=== PATIENT | female | born 1970 | race Caucasian/White ===

== ENCOUNTER 2017-05-21 11:22 | Emergency (ER) | payer MEDICAID ==
[2017-05-21 11:58] VITALS: BP 106/84
[2017-05-21] MEDS ORDERED: HYDROcodone/ACETAMIN 5-325 MG* 1 TAB PO ONE (12:58)
--- NOTE | 2017-05-21 12:58 | UC ---
Back Pain HPI - HPI Summary HPI Summary: Slipped on stairs this morning--has pain in right side hip and pelvis,--chronic pain in right hip from a 3 year old injry . - History of Current Complaint Chief Complaint: UCTrauma Stated Complaint: HIP/BACK PAIN Time Seen by Provider: 05/21/17 12:46 Hx Obtained From: Patient ?: No Onset/Duration: Worse Since - slipping on steps this morning Timing: Constant Severity Initially: Severe Severity Currently: Severe Pain Intensity: 10 Pain Scale Used: 0-10 Numeric Back Pain: Is Discrete @ - right groin in loer back Character: Sharp, Aching, Spasmodic Aggravating Factor(s): Movement Alleviating Factor(s): Nothing Associated Signs And Symptoms: Positive: Pain with Weight Bearing Related History: Previous Back Injury - Allergies/Home Medications Allergies/Adverse Reactions: Allergies Allergy/AdvReac Type Severity Reaction Status Date / Time No Known Allergies Allergy Verified 05/21/17 11:58 Home Medications: Home Medications Cyclobenzaprine TAB* [Flexeril 10 MG TAB*] 1 tab PO DAILY 05/21/17 [History Confirmed 05/21/17] metFORMIN* [Glucophage 500 MG TAB *] 1 tab PO DAILY 05/21/17 [History Confirmed 05/21/17] PMH/Surg Hx/FS Hx/Imm Hx Previously Healthy: Yes Endocrine History: Diabetes - Surgical History Surgical History: Yes Surgery Procedure, Year, and Place: Right hip fracture - Family History Known Family History: Positive: None - Social History Occupation: Unemployed Lives: With Family Alcohol Use: Occasionally Substance Use Type: None Smoking Status (MU): Light Every Day Tobacco Smoker Have You Smoked in the Last Year: No Cessation Counseling: Counseled 3+Min - 10 Min Review of Systems Constitutional: Negative Skin: Negative Eyes: Negative ENT: Negative Respiratory: Negative Cardiovascular: Negative Gastrointestinal: Negative Genitourinary: Negative Motor: Negative Neurovascular: Negative Musculoskeletal: Negative, Arthralgia - right hip and lower back Neurological: Negative Psychological: Negative Is Patient Immunocompromised?: No All Other Systems Reviewed And Are Negative: Yes Physical Exam Triage Information Reviewed: Yes Appearance: Well-Appearing, Well-Nourished, Pain Distress Vital Signs: Initial Vital Signs Temp 97.1 F 05/21/17 11:54 Pulse 133 05/21/17 11:54 Resp 18 05/21/17 11:54 BP 106/84 05/21/17 11:54 Pulse Ox 100 05/21/17 11:54 Vital Signs Reviewed: Yes Eye Exam: Normal Eyes: Positive: Conjunctiva Clear ENT Exam: Normal ENT: Positive: Normal ENT inspection, Hearing grossly normal. Negative: Nasal congestion, Trismus, Muffled voice, Hoarse voice, Dental tenderness, Sinus tenderness Dental Exam: Normal Neck exam: Normal Neck: Positive: Supple, Nontender, No Lymphadenopathy Respiratory Exam: Normal Respiratory: Positive: Chest non-tender, Lungs clear, Normal breath sounds, No respiratory distress, No accessory muscle use Cardiovascular Exam: Normal Cardiovascular: Positive: RRR, Pulses Normal, Brisk Capillary Refill, Tachycardia Abdominal Exam: Normal Musculoskeletal Exam: Normal Musculoskeletal: Positive: No Edema, Strength Limited @ - right hip/leg, ROM Limited @ - right hip---pain Neurological Exam: Normal Neurological: Positive: Alert, Muscle Tone Normal Psychological Exam: Normal Skin Exam: Normal Diagnostics - Radiology No standard instances Xray Interpretation: Positive (See Comments) - CAlcified uterine fibroid, degenerative changes hip and lower back Radiology Interpretation Completed By: Radiologist Back Pain Course/Dx - Course Course Of Treatment: pain med, referal to MD and physical theray, water quality tester for evaluation of thyroid - Differential Dx/Diagnosis Provider Diagnoses: Right hip strain, nicotine dependent, calcified uterine fibroid Discharge - Discharge Plan Condition: Stable Disposition: HOME Prescriptions: Hydrocodone-Acetaminophen [Hydrocodone/Acetaminophen 5-325 mg] 1 tab PO Q6H PRN #15 tab MDD 4 PRN Reason: pain Meloxicam(NF) [Mobic(NF)] 7.5 mg PO BID PRN #30 tab PRN Reason: Pain Patient Education Materials: Hip Sprain (ED), Uterine Fibroids (ED), How to Stop Smoking (ED) Referrals: No Primary Care Phys,NOPCP [Primary Care Provider] - [facility] [Outside]
--- NOTE | 2017-05-21 13:30 | RAD ---
INDICATION: Severe right hip pain after a fall COMPARISON: None TECHNIQUE: 4 views of the right hip were obtained. FINDINGS: There are at least 2 plate and screw fixator spanning the right iliac bone. There are advanced degenerative changes of the right hip including obliteration of the joint space and sclerotic change of the articulating services. The visualized bones are otherwise intact and appropriately aligned. The iliopectineal and ilioischial lines are intact. Incidentally noted in the left hemipelvis is a mostly calcified 5.2 cm mass possibly a calcified uterine fibroid. IMPRESSION: Normal radiograph of the right hip. If the patient's symptoms persist follow-up imaging is recommended.
== END 2017-05-21 14:20 | disposition home or self-care (01) ==
LOC: UCEAST 11:22
DX: S73.101A Unspecified sprain of right hip, initial encounter (principal); W01.0XXA Fall on same level from slipping, tripping and stumbling without subsequent striking against object, initial encounter; Y93.9 Activity, unspecified; Y92.9 Unspecified place or not applicable; Y99.9 Unspecified external cause status; F17.210 Nicotine dependence, cigarettes, uncomplicated; D25.9 Leiomyoma of uterus, unspecified; Z79.84 Long term (current) use of oral hypoglycemic drugs; E11.9 Type 2 diabetes mellitus without complications
CPT/HCPCS: 99202; G0463

== ENCOUNTER 2017-10-22 10:34 | Emergency (ER) | payer OTHER ==
--- NOTE | 2017-10-22 11:25 | UC ---
Ear Complaint HPI - HPI Summary HPI Summary: PATIENT COMPLAINS OF 2 WEEKS OF RINGING IN HER LEFT EAR. FOR ABOUT A WEEK SHE HAS HAD HEARING LOSS IN THE LEFT EAR. DENIES ANY DRAINAGE OR DISCHARGE FROM THAT EAR. SHE ALSO HAS PAIN THAT IS KEEPING HER UP AT NIGHT. HAS HAD ABOUT A WEEK OF URI SYMPTOMS INCLUDING COUGH AND CONGESTION BUT NO FEVER. - History of Current Complaint Chief Complaint: UCEar Stated Complaint: RINGING IN EAR Time Seen by Provider: 10/22/17 10:59 Hx Obtained From: Patient Onset/Duration: Gradual Onset, Lasting Weeks, Still Present Severity Initially: Moderate Severity Currently: Moderate Pain Intensity: 7 Pain Scale Used: 0-10 Numeric Aggravating Factors: Nothing Alleviating Factors: Nothing Associated Signs/Symptoms: Positive: Hearing Loss, URI Symptoms - Allergies/Home Medications Allergies/Adverse Reactions: Allergies Allergy/AdvReac Type Severity Reaction Status Date / Time No Known Allergies Allergy Verified 10/22/17 10:47 PMH/Surg Hx/FS Hx/Imm Hx Endocrine History: Diabetes - TYPE II - Surgical History Surgical History: Yes Surgery Procedure, Year, and Place: Right hip fracture; Right Hip Surgery by Dr. Ivory at [facility] - Family History Known Family History: Positive: None Negative: Hypertension - Social History Alcohol Use: Occasionally Alcohol Amount: 2 drinks per week Substance Use Type: None Smoking Status (MU): Heavy Every Day Tobacco Smoker Type: Cigarettes Amount Used/How Often: 1 PPD Have You Smoked in the Last Year: No Household Exposure Type: Cigarettes Review of Systems Constitutional: Negative ENT: Ear Ache Respiratory: Cough Cardiovascular: Negative Gastrointestinal: Negative All Other Systems Reviewed And Are Negative: Yes Physical Exam Triage Information Reviewed: Yes Appearance: Well-Appearing, No Pain Distress, Well-Nourished Vital Signs: Initial Vital Signs Temp 97.2 F 10/22/17 10:45 Pulse 78 10/22/17 10:45 Resp 18 10/22/17 10:45 BP 160/115 10/22/17 10:45 Pulse Ox 98 10/22/17 10:45 Vital Signs Reviewed: Yes Eyes: Positive: Conjunctiva Clear ENT: Positive: Hearing grossly normal, Pharynx normal, Other - RIGHT TM NORMAL. LEFT TM DULL, RETRACTED, ERYTHEMATOUS Neck: Positive: Supple, Nontender, No Lymphadenopathy Respiratory Exam: Normal Cardiovascular Exam: Normal Abdomen Description: Positive: Soft Musculoskeletal: Positive: No Edema Neurological: Positive: Alert Psychological: Positive: Age Appropriate Behavior Skin: Negative: rashes Ear Complaint Course/Dx - Differential Dx/Diagnosis Provider Diagnoses: LEFT AOM Discharge - Sign-Out/Discharge Documenting (check all that apply): Discharge/Admit/Transfer - Discharge Plan Condition: Stable Disposition: HOME Prescriptions: Amoxicillin PO (*) [Amoxicillin 500 MG CAP*] 1,000 mg PO Q12H #40 cap Patient Education Materials: Ear Infection (ED) Referrals: Senthil Trevino MD [Primary Care Provider] - If Needed Additional Instructions: YOUR BLOOD PRESSURE WAS ELEVATED TODAY (160/115). THIS MAY BE DUE TO YOUR ACUTE CONDITION. MONITOR AND FOLLOW-UP WITH YOUR PCP WITHIN 4 WEEKS IF IT HAS NOT RETURNED TO NORMAL. - Billing Disposition and Condition Condition: STABLE Disposition: HOME
[2017-10-22 11:37] VITALS: BP 140/101
== END 2017-10-22 11:34 | disposition home or self-care (01) ==
LOC: UCEAST 10:34
DX: H66.92 Otitis media, unspecified, left ear (principal); E11.9 Type 2 diabetes mellitus without complications; Z79.84 Long term (current) use of oral hypoglycemic drugs; F17.210 Nicotine dependence, cigarettes, uncomplicated
CPT/HCPCS: 99212; G0463

== ENCOUNTER 2018-12-14 16:30 | Emergency (ER) | payer OTHER ==
--- OUTSIDE RECORDS SUMMARY | 2018-12-14 16:46 | XMS REPORT | Continuity of Care Document ---
:1970 External Reference #:[id number] Author Name Samy Tierney Care Team Providers Name Role Phone Fatuma Bui M.D. Primary Care Physician Unavailable Payers Date Identification Numbers Payment Provider Subscriber Expires: 2017 Policy Number: [id number] Medicaid Maurice Nowak Group Name: 1 1 [address] PayID: [id number] [place] [address] Policy Number: [id number] [place] Maurice Nowak Group Number: [id number] [address] PayID: [id number] [place] [address] Problems Active Problems Provider Date Type 2 diabetes mellitus Benjamin Garcia M.D.,FACP Onset: 12/01/2017 Diabetic neuropathy Benjamin Garcia M.D.,FACP Onset: 12/01/2017 Chronic pain syndrome Benjamin Garcia M.D.,FACP Onset: 12/01/2017 Lumbar disc prolapse with Benjamin Garcia M.D.,FACP Onset: 12/01/2017 radiculopathy Cholelithiasis without obstruction Benjamin Garcia M.D.,FACP Onset: 2017 Major depressive disorder Benjamin Garcia M.D.,FACP Onset: 12/01/2017 Compression fracture of L2 Benjamin Garcia M.D.,FACP Onset: 04/29/2018 Note: on MRI, traumatic Moderate cigarette smoker (10-19 Benjamin Garcia M.D.,FACP Onset: 2017 cigs/day) Family History Date Family Member(s) Observation Comments General father at 91 yr r/t CVA. : (age 91 Father due to Stroke Years) Mother mother at 47 yo of lung cancer Mother due to Lung Cancer () Siblings 6 all alive and well Social History Type Date Description Comments Sex Unknown Marital Status Lives With Alone Occupation Unemployed Tobacco Use Start: Unknown current cigarette rolls her own, smoker about 15 a day Smoking Status Reviewed: 12/07/18 current cigarette rolls her own, smoker about 15 a day ETOH Use 04/29/2018 Occasionally consumes alcohol Tobacco Use Start: Unknown Heavy tobacco smoker 1 ppd; began age 11 (more than 10 cigarettes/day) Recreational Drug Use Denies Drug Use Exercise Type/Frequency Does not exercise Allergies, Adverse Reactions, Alerts Description No Known Drug Allergies Medications Active Medications SIG Qnty Indications Ordering Date Provider Buprenorphine HCL 1 sl every 8 hours 90tabs Fatuma Bui, 12/07/2018 8mg as needed for pain Tablets Sub Cyanocobalamin one intramuscular 30ml D51.9 Fatuma Bui, 10/13/2018 weekly x 4 1000mcg/ML Solution Trazodone HCL 1/2-1 tablet at 30tabs Senthil Peterson 07/29/2018 50mg bedtime as needed Sarina Trevino Tablets Atorvastatin Calcium take 1 tablet by 90tabs Benjamin Mayo 04/29/2018 mouth at bedtime Radha, 10mg Tablets Sarina,NIKKIE Tizanidine HCL 1 three times a day 30tabs Fatuma Bui, 03/31/2018 4mg as needed MD Tablets Duloxetine HCL Take 1 Capsule By 30caps F33.1 Fatuma Bui, 03/18/2018 60mg Mouth Every Morning MD Reinaldo Brandon 1 by mouth every day 90tabs Fatuma Bui, 03/18/2018 5mg Tablets Metformin HCL ER Take 2 Tablets By 120tabs Fatuma Bui, 500mg Mouth Every Morning Tablets ER 24HR And Take 2 Tablets By Mouth Every Evening Gabapentin take 2 capsules by 180caps Fatuma Bui, 400mg mouth 3 times a day Capsules History Medications Fentanyl apply one patch 10units M51.16 Fatuma Bui MD 08/17/2018 - 25mcg/HR once every 3 12/07/2018 Patches 72HR days S32.020D Fentanyl topical q3d with 10units Fatuma Bui MD 08/17/2018 - 12mcg/HR 25 mcg patch 12/07/2018 Patches 72HR Fentanyl topical q3days 5units M51Shoaib Bui MD 07/29/2018 - 08/17/2018 37.5mcg/HR Patches 72HR S32.020D Fentanyl apply 1 patch 5units [id number] Leila Nation MD 05/03/2018 - 25mcg/HR once every 3 07/29/2018 Patches 72HR days S32.020D Fentanyl one topical 10units M51.16 Benjamin Garcia, 04/29/2018 - every 3rd day Sarina,[facility] 05/03/2018 50mcg/HR Patches 72HR S32.020D Oxycodone HCL 1 by mouth every 150tabs Fatuma Bui MD 03/18/2018 - 10mg 4 hours as 12/07/2018 Tablets needed pain Duloxetine HCL Take one tablet 30caps F33.1 Benjamin Mayo 02/07/2018 - 60mg daily. Sarina Garcia,[facility] 02/07/[address] Buenrostro Venlafaxine HCL Take one tablet 30tabs F33.1 Benjamin Mayo 02/07/2018 - 75mg daily. Sarina Garcia,[facility] 03/18/2018 Tablets Oxycodone-Acetaminop 1 by mouth every 75tabs Benjamin Mayo 12/01/2017 - hen 4 hours as Sarina Garcia,[facility] 03/18/2018 7.5-325mg Tablets needed Duloxetine HCL take 1 capsule 30caps F33.1 Benjamin Mayo 12/01/2017 - 30mg by mouth every Sarina Garcia,[facility] 02/07/[address] Chitra Mtz 12 Hour 2 squirts to 60ml H69.92 Senthil Peterson 10/14/2017 - 0.05% each nostril Sarina Trevino 05/28/2018 Solution twice a day for no more than 5 days Oxycodone HCL five times a day Unknown - 10mg prn 12/01/2017 Tablets Iron 1 by mouth daily Unknown - Tablets with a small 02/15/2018 glass of orange juice Calcium 600 1 by mouth every Unknown - Tablets day 02/15/2018 Medications Administered in Office Medication SIG Qnty Indications Ordering Provider Date Vitamin B12 Pt Provided Vac Nurse Visit A 12/09/2018 Injection Vitamin B12 Pt Provided Vac Nurse Visit A 12/02/2018 Injection B-12 Injection Nurse Visit A 11/25/2018 Injection B-12 Injection Fatuma Bui MD 10/13/2018 Injection Vital Signs Date Vital Result Comment 12/07/2018 2:33pm Height 62.5 inches 5'2.50" Weight 139.00 lb Heart Rate 124 /min BP Systolic 130 mmHg BP Diastolic 90 mmHg Body Temperature 98.0 F O2 % BldC Oximetry 97 % BMI (Body Mass Index) 25.0 kg/m2 10/13/2018 2:07pm Height 62.5 inches 5'2.50" Weight 145.00 lb Heart Rate 110 /min BP Systolic Sitting 106 mmHg BP Diastolic Sitting 75 mmHg BMI (Body Mass Index) 26.1 kg/m2 09/21/2018 9:56am Height 62.5 inches 5'2.50" Weight 150.00 lb Heart Rate 105 /min BP Systolic Sitting 124 mmHg BP Diastolic Sitting 100 mmHg Respiratory Rate 18 /min Pain Level 7 BMI (Body Mass Index) 27.0 kg/m2 07/29/2018 11:18am Height 62.5 inches 5'2.50" Weight 143.38 lb with boots Heart Rate 76 /min BP Systolic 122 mmHg BP Diastolic 80 mmHg O2 % BldC Oximetry 96 % BMI (Body Mass Index) 25.8 kg/m2 06/27/2018 9:03am Height 62.5 inches 5'2.50" Weight 144.50 lb Heart Rate 120 /min rt radial, regular BP Systolic Sitting 145 mmHg BP Diastolic Sitting 100 mmHg BMI (Body Mass Index) 26.0 kg/m2 04/29/2018 2:11pm Height 62.5 inches 5'2.50" Weight 151.00 lb Heart Rate 85 /min BP Systolic 116 mmHg BP Diastolic 84 mmHg O2 % BldC Oximetry 97 % BMI (Body Mass Index) 27.2 kg/m2 03/18/2018 2:22pm Height 62.5 inches 5'2.50" Weight 151.00 lb Heart Rate 94 /min BP Systolic Sitting 124 mmHg BP Diastolic Sitting 70 mmHg Respiratory Rate 16 /min Body Temperature 97.2 F tympanic Pain Level 10 back O2 % BldC Oximetry 98 % on Ra BMI (Body Mass Index) 27.2 kg/m2 02/07/2018 8:53am Height 62.5 inches 5'2.50" Weight 154.00 lb Heart Rate 104 /min BP Systolic 130 mmHg in quite a bit of pain BP Diastolic 90 mmHg in quite a bit of pain O2 % BldC Oximetry 99 % BMI (Body Mass Index) 27.7 kg/m2 12/01/2017 3:55pm Weight 145.00 lb Heart Rate 140 /min BP Systolic Sitting 112 mmHg BP Diastolic Sitting 70 mmHg Body Temperature 97.6 F O2 % BldC Oximetry 95 % 10/14/2017 9:57am Weight 157.00 lb Heart Rate 114 /min BP Systolic Sitting 110 mmHg BP Diastolic Sitting 78 mmHg O2 % BldC Oximetry 97 % 09/30/2017 3:15pm Height 62.5 inches 5'2.50" Weight 148.00 lb Heart Rate 102 /min 125 initially BP Systolic Sitting 128 mmHg 140/96 initially BP Diastolic Sitting 88 mmHg 140/96 initially O2 % BldC Oximetry 97 % BMI (Body Mass Index) 26.6 kg/m2 Results Test Date Facility Test Result H/L Range Note CBC Auto Diff 12/07/2018 [facility] White Blood 7.2 10^3/uL N 3.5-10.[address] [place] [address] [phone] Red Blood Count 4.37 10^6/uL N 3.70-4.87 Hemoglobin 13.9 g/dL N 12.0-16.0 Hematocrit 43 % N 35-47 Mean Corpuscular Volume 98 fL High 80-97 Mean Corpuscular Hemoglobin 32 pg High 27-31 Mean Corpuscular HGB Conc 33 g/dL N 31-36 Red Cell Distribution Width 16 % High 10-15 Platelet Count 303 10^3/uL N 150-450 Mean Platelet Volume 8.6 fL N 7.4-10.4 Abs Neutrophils 4.2 10^3/uL N 1.5-7.7 Abs Lymphocytes 2.4 10^3/uL N 1.0-4.8 Abs Monocytes 0.5 10^3/uL N 0-0.8 Abs Eosinophils 0.0 10^3/uL N 0-0.6 Abs Basophils 0.1 10^3/uL N 0-0.2 Abs Nucleated RBC 0.0 10^3/uL Granulocyte % 58.0 % Lymphocyte % 33.7 % Monocyte % 6.7 % Eosinophil % 0.3 % Basophil % 1.3 % Nucleated Red Blood Cells % 0.0 Laboratory test 12/07/2018 [facility] TSH (Thyroid 0.54 mcIU/mL N 0.34-5.[address] Stim [place]orm) [place] [address] [phone] Basic Metabolic 12/07/2018 [facility] Sodium 142 mmol/L N 135- [address] [place] [address] [phone] Potassium 5.0 mmol/L N 3.5-5.0 Chloride 106 mmol/L N 101-111 Co2 Carbon Dioxide 24 mmol/L N 22-32 Anion Gap 12 mmol/L High 2-11 Glucose 324 mg/dL High 70-100 Blood Urea Nitrogen 7 mg/dL N 6-24 Creatinine 0.66 mg/dL N 0.51-0.95 BUN/Creatinine Ratio 10.6 N 8-20 Calcium 10.3 mg/dL N 8.6-10.3 Egfr Non- 95.2 >60 Egfr 115.2 >60 1 Drug Abuse 10/13/2018 [facility] Urine Presumptive Abnormal 2, 3 [address] Amphetamine Posi <SEE NOTE> [place] [address] ng/mL [phone] Urine Barbiturates Negative ng/mL 4 Urine Benzodiazepines Negative ng/mL 5 Urine Cocaine Presumptive Posi <SEE NOTE> Abnormal 6 ng/mL Urine Phencyclidine Negative ng/mL Cutoff: 25 Urine Tetrahydrocannabinol Presumptive Posi <SEE NOTE> Abnormal Cutoff: 50 7 ng/mL Creatinine, Urine 235.9 mg/dL Specific [place] 1.023 pH 5.5 Oxidants Negative 8 Adulterants Comment Normal Codeine, Ur Not Detected ng/mL Cutoff: 25 9 Fpaucct-5-bond-glucuronide, Ur Not Detected ng/mL 10 Morphine, Ur Not Detected ng/mL Cutoff: 25 11 Wyxrhdaj-5-nwod-glucuronide, U Not Detected ng/mL 12 6-monoacetylmorphine, Ur Not Detected ng/mL Cutoff: 25 13 Hydrocodone, Ur Not Detected ng/mL Cutoff: 25 14 Norhydrocodone, Ur Not Detected ng/mL Cutoff: 25 15 Dihydrocodeine, Ur Not Detected ng/mL Cutoff: 25 16 Hydromorphone, Ur Not Detected ng/mL Cutoff: 25 17 Vhaqxiuhtzhpe2tyxgmrmfxxcrjmg Not Detected ng/mL 18 Oxycodone, Ur Present ng/mL Abnormal Cutoff: 25 19 Noroxycodone, Ur Present ng/mL Abnormal Cutoff: 25 20 Oxymorphone, Ur Present ng/mL Abnormal Cutoff: 25 21 Ktxlnojsftv-7-pjgl-glucuronide Present ng/mL Abnormal 22 Noroxymorphone, Ur Present ng/mL Abnormal Cutoff: 25 23 Fentanyl, Ur Present ng/mL Abnormal Cutoff: 2 24 Norfentanyl, Ur Present ng/mL Abnormal Cutoff: 2 25 Meperidine, Ur Not Detected ng/mL Cutoff: 25 26 Normeperidine, Ur Not Detected ng/mL Cutoff: 25 27 Naloxone, Ur Not Detected ng/mL Cutoff: 25 28 Kkuizhme-1-gpmm-glucuronide, U Not Detected ng/mL 29 Methadone, Ur Not Detected ng/mL Cutoff: 25 30 Eddp, Ur Not Detected ng/mL Cutoff: 25 31 Propoxyphene, Ur Not Detected ng/mL Cutoff: 25 32 Norpropoxyphene, Ur Not Detected ng/mL Cutoff: 25 33 Tramadol, Ur Not Detected ng/mL Cutoff: 25 34 O-desmethyltramadol, Ur Not Detected ng/mL Cutoff: 25 35 Tapentadol, Ur Not Detected ng/mL Cutoff: 25 36 N-desmethyltapentadol, Ur Not Detected ng/mL Cutoff: 50 37 Hpivqwuigf-klfv-fskaqeknpkp, U Not Detected ng/mL 38 Buprenorphine, Ur Not Detected ng/mL Cutoff: 5 39 Norbuprenorphine, Ur Not Detected ng/mL Cutoff: 5 40 Norbuprenorphine glucuronide Not Detected ng/mL Cutoff: 20 41 Opioid Interpretation See Comment 42 Urine 10/13/2018 [facility] Urine Negative Cutoff: [address] Amphetamine by ng/[place] [address] GC/MS [phone] Urine Methamphetamine by GC/MS Negative ng/mL Cutoff: 25 Phentermine-by GC/MS Negative ng/mL Cutoff: 25 Pseudoephedrine/Ephedr GC/MS Negative ng/mL Cutoff: 25 Mda(Ecstacy metabolite) GC/MS Negative ng/mL Cutoff: 25 Mdma(Ecstacy)-by GC/MS Negative ng/mL Cutoff: 25 Urine Amphetamines Interp Negative. 43 Urine Cocaine 10/13/2018 [facility] Urine Negative Cutoff: [address] Cocaine ng/[place] [address] Confirm [phone] (GC/MS) Ur Benzoylecgonine Confirm 200 ng/mL Cutoff: 50 Urine Cocaine Interpretation Positive. 44 THC Confirmation 10/13/2018 [facility] Urine Carboxy 25 ng/mL [address] THC Confirm [place], [place] [id number] [phone] Urine THC Interpretation Positive. 46 Laboratory test 10/13/2018 [facility] Hemoglobin A1c 7.2 High 5-7 finding Lipid Profile 03/31/2018 [facility] Triglycerides 289 mg/dL 47 (Trig/Chol/HDL) [address] [place] [address] [phone] Cholesterol 244 mg/dL 48 HDL Cholesterol 44.0 mg/dL 49 LDL Cholesterol 142 mg/dL 50 Comp Metabolic Panel 03/31/2018 [facility] Sodium 137 mmol/L N 135-[address] [place] [address] [phone] Potassium 5.2 mmol/L High 3.5-5.0 Chloride 102 mmol/L N 101-111 Co2 Carbon Dioxide 29 mmol/L N 22-32 Anion Gap 6 mmol/L N 2-11 Glucose 155 mg/dL High 70-100 Blood Urea Nitrogen 11 mg/dL N 6-24 Creatinine 0.77 mg/dL N 0.51-0.95 BUN/Creatinine Ratio 14.3 N 8-20 Calcium 10.3 mg/dL N 8.6-10.3 Total Protein 7.9 g/dL N 6.4-8.9 Albumin 4.6 g/dL N 3.2-5.2 Globulin 3.3 g/dL N 2-4 Albumin/Globulin Ratio 1.4 N 1-3 Total Bilirubin 0.30 mg/dL N 0.2-1.0 Alkaline Phosphatase 67 U/L N 34-104 Alt 8 U/L N 7-52 Ast 11 U/L Low 13-39 Egfr Non- 80.0 >60 Egfr 96.8 >60 51 Urine Microalbumin 03/31/2018 [facility] Ur Microalbumin 223.[address] (mg/L) [place] [address] [phone] Urine Creatinine 247.06 mg/dL Urine Microalbumin/Creatinine 90.2 High <31 Laboratory test 03/31/2018 [facility] TSH (Thyroid 0.90 mcIU/mL N 0.34-5.[address] Stim [place]orm) [place] [address] [phone] Vitamin B12 217 pg/mL N 180-717 52 CBC Auto 03/31/2018 [facility] White Blood 11.1 10^3/uL High 3.5-10.[address] [place] [address] [phone] Red Blood Count 4.45 10^6/uL N 4.00-5.40 Hemoglobin 15.0 g/dL N 12.0-16.0 Hematocrit 44 % N 35-47 Mean Corpuscular Volume 99 fL High 80-97 Mean Corpuscular Hemoglobin 34 pg High 27-31 Mean Corpuscular HGB Conc 34 g/dL N 31-36 Red Cell Distribution Width 15 % N 10.5-15 Platelet Count 215 10^3/uL N 150-450 Mean Platelet Volume 9.2 um3 N 7.4-10.4 Abs Neutrophils 7.8 10^3/uL High 1.5-7.7 Abs Lymphocytes 2.7 10^3/uL N 1.0-4.8 Abs Monocytes 0.6 10^3/uL N 0-0.8 Abs Eosinophils 0.1 10^3/uL N 0-0.6 Abs Basophils 0.1 10^3/uL N 0-0.2 Abs Nucleated RBC 0 10^3/uL Granulocyte % 68.8 % N 38-83 Lymphocyte % 24.1 % Low 25-47 Monocyte % 5.4 % N 0-7 Eosinophil % 0.9 % N 0-6 Basophil % 0.8 % N 0-2 Nucleated Red Blood Cells % 0.1 Laboratory test 03/31/2018 [facility] Free T4 (Free 0.63 ng/dL N 0.61-1.[address] Thyroxine) [place] [address] [phone] Hemoglobin A1c (Glyco HGB) 6.8 % High 4.0-5.6 53 Laboratory test 03/18/2018 [facility] Hemoglobin A1c 7.4 High 5-7 finding BUN/Creat/GFR 02/09/2018 [facility] Poc Blood Urea 7 mg/dL Low 8-[address] [place] [address] [phone] Poc Creatinine 0.6 mg/dL N 0.6-1.3 54 Poc BUN/Creatinine Ratio 11.7 N 8-20 Egfr Non- 106.7 >60 Egfr 129.1 >60 55 Drug Abuse 02/07/2018 [facility] Urine Amphetamine Negative ng/ mL 56, 57 [address] [place] [address] [phone] Urine Barbiturates Negative ng/mL 58 Urine Benzodiazepines Negative ng/mL 59 Urine Cocaine Negative ng/mL 60 Urine Phencyclidine Negative ng/mL Cutoff: 25 Urine Tetrahydrocannabinol Presumptive Posi <SEE NOTE> Abnormal Cutoff: 50 61 ng/mL Creatinine, Urine 63.4 mg/dL Specific [place] 1.008 pH 5.9 Oxidants Negative 62 Adulterants Comment Normal Codeine, Ur Not Detected ng/mL Cutoff: 25 63 Qiekwum-8-kikl-glucuronide, Ur Not Detected ng/mL 64 Morphine, Ur Not Detected ng/mL Cutoff: 25 65 Cggtoure-4-ocgo-glucuronide, U Not Detected ng/mL 66 6-monoacetylmorphine, Ur Not Detected ng/mL Cutoff: 25 67 Hydrocodone, Ur Not Detected ng/mL Cutoff: 25 68 Norhydrocodone, Ur Not Detected ng/mL Cutoff: 25 69 Dihydrocodeine, Ur Not Detected ng/mL Cutoff: 25 70 Hydromorphone, Ur Not Detected ng/mL Cutoff: 25 71 Elquzitchkako5ihuzuarujubsszr Not Detected ng/mL 72 Oxycodone, Ur Not Detected ng/mL Cutoff: 25 73 Noroxycodone, Ur Present ng/mL Abnormal Cutoff: 25 74 Oxymorphone, Ur Not Detected ng/mL Cutoff: 25 75 Rlxxlyyiymq-8-xhzr-glucuronide Present ng/mL Abnormal 76 Noroxymorphone, Ur Present ng/mL Abnormal Cutoff: 25 77 Fentanyl, Ur Not Detected ng/mL Cutoff: 2 78 Norfentanyl, Ur Not Detected ng/mL Cutoff: 2 79 Meperidine, Ur Not Detected ng/mL Cutoff: 25 80 Normeperidine, Ur Not Detected ng/mL Cutoff: 25 81 Naloxone, Ur Not Detected ng/mL Cutoff: 25 82 Cykeqacg-3-edmi-glucuronide, U Not Detected ng/mL 83 Methadone, Ur Not Detected ng/mL Cutoff: 25 84 Eddp, Ur Not Detected ng/mL Cutoff: 25 85 Propoxyphene, Ur Not Detected ng/mL Cutoff: 25 86 Norpropoxyphene, Ur Not Detected ng/mL Cutoff: 25 87 Tramadol, Ur Not Detected ng/mL Cutoff: 25 88 O-desmethyltramadol, Ur Not Detected ng/mL Cutoff: 25 89 Tapentadol, Ur Not Detected ng/mL Cutoff: 25 90 N-desmethyltapentadol, Ur Not Detected ng/mL Cutoff: 50 91 Xakvmvnqpq-zvmf-xnvmxbgzotm, U Not Detected ng/mL 92 Buprenorphine, Ur Not Detected ng/mL Cutoff: 5 93 Norbuprenorphine, Ur Not Detected ng/mL Cutoff: 5 94 Norbuprenorphine glucuronide Not Detected ng/mL Cutoff: 20 95 Opioid Interpretation See Comment 96 THC Confirmation 02/07/2018 [facility] Urine Carboxy 33 ng/mL [address] [place] [address] [phone] Urine THC Interpretation Positive. 98 Drug Abuse 12/01/2017 [facility] Urine Presumptive Abnormal 99 [address] Amphetamine Posi <SEE NOTE> [place] [address] ng/mL [phone] Urine Barbiturates Negative ng/mL 100 Urine Benzodiazepines Negative ng/mL 101 Urine Cocaine Negative ng/mL 102 Urine Phencyclidine Negative ng/mL Cutoff: 25 Urine Tetrahydrocannabinol Negative ng/mL Cutoff: 50 103 Creatinine, Urine 149.4 mg/dL Specific [place] 1.014 pH 5.8 Oxidants Negative 104 Adulterants Comment Normal Codeine, Ur Not Detected ng/mL Cutoff: 25 105 Jehuwni-0-oqyi-glucuronide, Ur Not Detected ng/mL 106 Morphine, Ur Not Detected ng/mL Cutoff: 25 107 Wgpxptqh-2-uyjz-glucuronide, U Not Detected ng/mL 108 6-monoacetylmorphine, Ur Not Detected ng/mL Cutoff: 25 109 Hydrocodone, Ur Not Detected ng/mL Cutoff: 25 110 Norhydrocodone, Ur Not Detected ng/mL Cutoff: 25 111 Dihydrocodeine, Ur Not Detected ng/mL Cutoff: 25 112 Hydromorphone, Ur Not Detected ng/mL Cutoff: 25 113 Caviisqojerxl3ewavygplndrnivb Not Detected ng/mL 114 Oxycodone, Ur Present ng/mL Abnormal Cutoff: 25 115 Noroxycodone, Ur Present ng/mL Abnormal Cutoff: 25 116 Oxymorphone, Ur Not Detected ng/mL Cutoff: 25 117 Mbjlyfbiiws-1-cbeb-glucuronide Present ng/mL Abnormal 118 Noroxymorphone, Ur Present ng/mL Abnormal Cutoff: 25 119 Fentanyl, Ur Not Detected ng/mL Cutoff: 2 120 Norfentanyl, Ur Not Detected ng/mL Cutoff: 2 121 Meperidine, Ur Not Detected ng/mL Cutoff: 25 122 Normeperidine, Ur Not Detected ng/mL Cutoff: 25 123 Naloxone, Ur Not Detected ng/mL Cutoff: 25 124 Cbfrwruc-3-rdym-glucuronide, U Not Detected ng/mL 125 Methadone, Ur Not Detected ng/mL Cutoff: 25 126 Eddp, Ur Not Detected ng/mL Cutoff: 25 127 Propoxyphene, Ur Not Detected ng/mL Cutoff: 25 128 Norpropoxyphene, Ur Not Detected ng/mL Cutoff: 25 129 Tramadol, Ur Not Detected ng/mL Cutoff: 25 130 O-desmethyltramadol, Ur Not Detected ng/mL Cutoff: 25 131 Tapentadol, Ur Not Detected ng/mL Cutoff: 25 132 N-desmethyltapentadol, Ur Not Detected ng/mL Cutoff: 50 133 Vfhxscwgai-bnhq-mdcqparsgju, U Not Detected ng/mL 134 Buprenorphine, Ur Not Detected ng/mL Cutoff: 5 135 Norbuprenorphine, Ur Not Detected ng/mL Cutoff: 5 136 Norbuprenorphine glucuronide Not Detected ng/mL Cutoff: 20 137 Opioid Interpretation See Comment 138 Urine 12/01/2017 [facility] Urine Negative Cutoff: [address] Amphetamine by ng/[place] [address] GC/MS [phone] Urine Methamphetamine by GC/MS Negative ng/mL Cutoff: 25 Phentermine-by GC/MS Negative ng/mL Cutoff: 25 Pseudoephedrine/Ephedr GC/MS Negative ng/mL Cutoff: 25 Mda(Ecstacy metabolite) GC/MS Negative ng/mL Cutoff: 25 Mdma(Ecstacy)-by GC/MS Negative ng/mL Cutoff: 25 Urine Amphetamines Interp Negative. 139 CBC Auto 09/22/2017 [facility] White Blood 11.0 10^3/uL High 3.5-10.[address] [place] [address] [phone] Red Blood Count 2.68 10^6/uL Low 4.0-5.4 Hemoglobin 9.0 g/dL Low 12.0-16.0 Hematocrit 27 % Low 35-47 Mean Corpuscular Volume 100 fL High 80-97 Mean Corpuscular Hemoglobin 34 pg High 27-31 Mean Corpuscular HGB Conc 33 g/dL N 31-36 Red Cell Distribution Width 15 % N 10.5-15 Platelet Count 475 10^3/uL High 150-450 Mean Platelet Volume 7.9 um3 N 7.4-10.4 Abs Neutrophils 6.8 10^3/uL N 1.5-7.7 Abs Lymphocytes 2.7 10^3/uL N 1.0-4.8 Abs Monocytes 1.2 10^3/uL High 0-0.8 Abs Eosinophils 0.2 10^3/uL N 0-0.6 Abs Basophils 0.2 10^3/uL N 0-0.2 Abs Nucleated RBC 0 10^3/uL Granulocyte % 62.1 % N 38-83 Lymphocyte % 24.4 % Low 25-47 Monocyte % 10.7 % High 0-7 Eosinophil % 1.4 % N 0-6 Basophil % 1.4 % N 0-2 Nucleated Red Blood Cells % 0.3 Accu-Check Glucose 09/20/2017 N2N/CCD Import Glucose, 157 mg/dL 70 - 99 (Poct) Accu-Check Accu-Check Glucose 09/19/2017 N2N/CCD Import Glucose, 125 mg/dL 70 - 99 (Poct) Accu-Check Accu-Check Glucose 09/19/2017 N2N/CCD Import Glucose, 279 mg/dL 70 - 99 (Poct) Accu-Check Accu-Check Glucose 09/19/2017 N2N/CCD Import Glucose, 199 mg/dL 70 - 99 (Poct) Accu-Check Basic Metabolic 09/19/2017 N2N/CCD Import BUN 7 mg/dL 7 - 17 Panel Calcium 9.1 mg/dL 8.3 - 10.1 Chloride 96 mmol/L Low 98 - 107 Co2 33 mmol/L High 22 - 30 Creatinine 0.6 mg/dL Low 0.7 - 1.2 Glucose 141 mg/dL High 70 - 99 Potassium 3.9 mmol/L 3.5 - 5.1 Sodium 134 mmol/L 134 - 145 eGFR >60 See Interpretation Below Hemoglobin & Hematocrit 09/19/2017 N2N/CCD Import Hematocrit 28.8 % Low 35.0 - 47.0 Hemoglobin 9.7 g/dL Low 12.0 - 16.0 Accu-Check Glucose 09/18/2017 N2N/CCD Import Glucose, 178 mg/dL 70 - 99 (Poct) Accu-Check Accu-Check Glucose 09/18/2017 N2N/CCD Import Glucose, 158 mg/dL 70 - 99 (Poct) Accu-Check Accu-Check Glucose 09/18/2017 N2N/CCD Import Glucose, 185 mg/dL 70 - 99 (Poct) Accu-Check Accu-Check Glucose 09/18/2017 N2N/CCD Import Glucose, 138 mg/dL 70 - 99 (Poct) Accu-Check Basic Metabolic 09/18/2017 N2N/CCD Import BUN 10 mg/dL 7 - 17 Panel Calcium 8.5 mg/dL 8.3 - 10.1 Chloride 97 mmol/L Low 98 - 107 Co2 31 mmol/L High 22 - 30 Creatinine 0.5 mg/dL Low 0.7 - 1.2 Glucose 103 mg/dL High 70 - 99 Potassium 4.1 mmol/L 3.5 - 5.1 Sodium 135 mmol/L 134 - 145 eGFR >60 See Interpretation Below Hemoglobin & Hematocrit 09/18/2017 N2N/CCD Import Hematocrit 25.0 % Low 35.0 - 47.0 Hemoglobin 8.5 g/dL Low 12.0 - 16.0 Platelet Count 09/18/2017 N2N/CCD Import Platelet Count 214 K/uL 150 - 400 Accu-Check Glucose 09/17/2017 N2N/CCD Import Glucose, 101 mg/dL 70 - 99 (Poct) Accu-Check Accu-Check Glucose 09/17/2017 N2N/CCD Import Glucose, 167 mg/dL 70 - 99 (Poct) Accu-Check Accu-Check Glucose 09/17/2017 N2N/CCD Import Glucose, 215 mg/dL 70 - 99 (Poct) Accu-Check Accu-Check Glucose 09/17/2017 N2N/CCD Import Glucose, 186 mg/dL 70 - 99 (Poct) Accu-Check Basic Metabolic 09/17/2017 N2N/CCD Import BUN 10 mg/dL 7 - 17 Panel Calcium 8.8 mg/dL 8.3 - 10.1 Chloride 99 mmol/L 98 - 107 Co2 28 mmol/L 22 - 30 Creatinine 0.5 mg/dL Low 0.7 - 1.2 Glucose 169 mg/dL High 70 - 99 Potassium 4.2 mmol/L 3.5 - 5.1 Sodium 135 mmol/L 134 - 145 eGFR >60 See Interpretation Below Hemoglobin & Hematocrit 09/17/2017 N2N/CCD Import Hematocrit 25.9 % Low 35.0 - 47.0 Hemoglobin 9.0 g/dL Low 12.0 - 16.0 Accu-Check Glucose 09/16/2017 N2N/CCD Import Glucose, 216 mg/dL 70 - 99 (Poct) Accu-Check Accu-Check Glucose 09/16/2017 N2N/CCD Import Glucose, 282 mg/dL 70 - 99 (Poct) Accu-Check Accu-Check Glucose 09/16/2017 N2N/CCD Import Glucose, 158 mg/dL 70 - 99 (Poct) Accu-Check Basic Metabolic 09/16/2017 N2N/CCD Import BUN 12 mg/dL 7 - 17 Panel Calcium 8.9 mg/dL 8.3 - 10.1 Chloride 103 mmol/L 98 - 107 Co2 29 mmol/L 22 - 30 Creatinine 0.5 mg/dL Low 0.7 - 1.2 Glucose 151 mg/dL High 70 - 99 Potassium 4.4 mmol/L 3.5 - 5.1 Sodium 139 mmol/L 134 - 145 eGFR >60 See Interpretation Below Hemoglobin & Hematocrit 09/16/2017 N2N/CCD Import Hematocrit 28.1 % Low 35.0 - 47.0 Hemoglobin 9.2 g/dL Low 12.0 - 16.0 Accu-Check Glucose 09/16/2017 N2N/CCD Import Glucose, 200 mg/dL 70 - 99 (Poct) Accu-Check Accu-Check Glucose 09/15/2017 N2N/CCD Import Glucose, 191 mg/dL 70 - 99 (Poct) Accu-Check Accu-Check Glucose 09/15/2017 N2N/CCD Import Glucose, 487 mg/dL 70 - 99 (Poct) Accu-Check Accu-Check Glucose 09/15/2017 N2N/CCD Import Glucose, 246 mg/dL 70 - 99 (Poct) Accu-Check Accu-Check Glucose 09/15/2017 N2N/CCD Import Glucose, 203 mg/dL 70 - 99 (Poct) Accu-Check Type And Screen 09/15/2017 N2N/CCD Import Abo/RH Type A Pos Antibody Screen Interp Neg Hemoglobin & Hematocrit 09/15/2017 N2N/CCD Import Hematocrit 33.6 % Low 35.0 - 47.0 Hemoglobin 11.2 g/dL Low 12.0 - 16.0 Accu-Check Glucose 09/15/2017 N2N/CCD Import Glucose, 159 mg/dL 70 - 99 (Poct) Accu-Check Prothrombin Time 09/08/2017 N2N/CCD Import Inr 1.08 Inr 0.79 - 1.15 Protime 13.8 sec 11.4 - 14.3 Staph Aureus 09/08/2017 N2N/CCD Import MRSA by PCR Negative for MRSA Negative Screen By PCR ([facility] Only) Staph aureus by PCR Negative for Staph Aureus Negative Type And Screen 09/08/2017 N2N/CCD Import Abo/RH Type A Pos Antibody Screen Interp Neg Pre-Op 12-Lead EKG ([facility]) 09/08/2017 N2N/CCD Import Atrial rate 105 BPM P [place] 68 degrees P-R Interval 142 ms Q-T Interval 344 ms QRS Duration 80 ms QTC Calculation (Bezet) 454 ms R [place] 68 degrees T [place] 47 degrees Ventricular Rate 105 BPM Comprehensive Metabolic 09/08/2017 N2N/CCD Import Albumin 4.4 g/dL 3.5 - 5.0 Panel Alkaline Phosphatase 181 U/L High 38 - 126 Alt 24 U/L 9 - 52 Ast 39 U/L 15 - 46 BUN 30 mg/dL High 7 - 17 Calcium 10.4 mg/dL High 8.3 - 10.1 Chloride 94 mmol/L Low 98 - 107 Co2 27 mmol/L 22 - 30 Creatinine 0.8 mg/dL 0.7 - 1.2 Glucose 191 mg/dL High 70 - 99 Potassium 4.2 mmol/L 3.5 - 5.1 Sodium 135 mmol/L 134 - 145 Total Bilirubin 1.5 mg/dL High 0.0 - 1.1 Total Protein 9.3 g/dL High 6.3 - 8.2 eGFR >60 See Interpretation Below CBC With Differential 09/08/2017 N2N/CCD Import Basophil # 0.1 K/uL 0.0 - 0.2 Basophil % 1.2 % 0.0 - 2.0 Eosinophil # 0.0 K/uL 0.0 - 0.5 Eosinophil % 0.6 % 0.0 - 7.0 Hematocrit 41.2 % 35.0 - 47.0 Hemoglobin 14.0 g/dL 12.0 - 16.0 Lymphocyte # 2.3 K/uL 1.0 - 5.0 Lymphocyte % 29.4 % 21.0 - 49.0 MCH 34.2 pg High 26.0 - 34.0 MCHC 34.1 g/dL 32.0 - 36.0 MCV 100.3 fL High 80.0 - 100.0 MPV 9.0 fL 7.1 - 11.2 Monocyte # 0.7 K/uL 0.0 - 0.8 Monocyte % 8.8 % 1 - 11 Neutrophil # 4.7 K/uL 1.8 - 7.7 Neutrophil % 60.0 % 38.0 - 70.0 Platelet Count 299 K/uL 150 - 400 RBC Count 4.10 M/uL 3.80 - 5.20 RDW 14.9 % 11.0 - 15.0 WBC Count 7.8 K/uL 3.6 - 11.0 Glycohemoglobin 09/08/2017 N2N/CCD Import Glycohemoglobin 7.0 % Abnormal 3.9 - (Poct) (Poct) 6.4 1 Because ethnic data is not always readily available, this report includes an eGFR for both -Americans and non- Americans. The National Kidney Disease Education Program (NKDEP) does not endorse the use of the MDRD equation for patients that are not between the ages of 18 and 70, are , have extremes of body size, muscle mass, or nutritional status, or are non- or non-. According to the National Kidney Foundation, irrespective of diagnosis, the stage of the disease is based on the level of kidney function: Stage Description GFR(mL/min/1.73 m(2)) 1 Kidney damage with normal or decreased GFR 90 2 Kidney damage with mild decrease in GFR 60-89 3 Moderate decrease in GFR 30-59 4 Severe decrease in GFR 15-29 5 Kidney failure <15 (or dialysis) 2 [id number] Presumptive Positive Drug confirmation to follow. Presumptive Positive means that the screening method is positive, but the test needs to be run by a confirmatory method before being finalized. REFERENCE VALUE Cutoff: 500 4 REFERENCE VALUE Cutoff: 200 5 REFERENCE VALUE Cutoff: 100 6 Presumptive Positive Drug confirmation to follow. Presumptive Positive means that the screening method is positive, but the test needs to be run by a confirmatory method before being finalized. REFERENCE VALUE Cutoff: 150 7 Presumptive Positive Drug confirmation to follow. Presumptive Positive means that the screening method is positive, but the test needs to be run by a confirmatory method before being finalized. ADDITIONAL INFORMATION This report is intended for use in clinical monitoring or management of patients. It is not intended for use in employment-related testing. 8 REFERENCE VALUE Cutoff: 200 mg/L 9 Tylenol 3 10 Metabolite of codeine REFERENCE VALUE Cutoff: 100 11 Jeni Light, MS Contin; Also a minor metabolite (10%) of codeine and can be seen in low concentrations (<2,000 ng/mL) with poppy seed ingestion. 12 Metabolite of morphine REFERENCE VALUE Cutoff: 100 13 Metabolite of heroin 14 Lortab, Tarkio, Vicodin; Also a very minor metabolite of codeine and impurity (<1%) of oxycodone. 15 Metabolite of hydrocodone 16 Metabolite of hydrocodone 17 Dilaudid, Exalgo; Also a metabolite of hydrocodone and a minor (<5%) metabolite of morphine. 18 Metabolite of hydromorphone REFERENCE VALUE Cutoff: 100 19 Endocet, Percocet, Oxycontin 20 Metabolite of oxycodone 21 Numorphan, Opana; Also a metabolite of oxycodone. 22 Metabolite of oxymorphone REFERENCE VALUE Cutoff: 100 23 Metabolite of oxymorphone 24 Actiq, Duragesic, Fentora 25 Metabolite of fentanyl 26 Demerol 27 Metabolite of meperidine 28 Narcan 29 Metabolite of naloxone REFERENCE VALUE Cutoff: 100 30 Dolophine 31 Metabolite of methadone 32 Darvon, Darvocet 33 Metabolite of propoxyphene 34 Tradol, Ultram, Ultracet 35 Metabolite of tramadol 36 Nucynta 37 Metabolite of tapentadol 38 Metabolite of tapentadol REFERENCE VALUE Cutoff: 100 39 Buprenex, Suboxone 40 Metabolite of buprenorphine 41 Metabolite of buprenorphine 42 Test detected the presence of oxycodone and several metabolites (noroxycodone, oxymorphone, noroxymorphone, and voyimkarjne-2-mguk-glucuronide). Suspect use of oxycodone and/or oxymorphone within the past three days. Test detected the presence of fentanyl and its metabolite (norfentanyl). Suspect use of fentanyl within the past three days. ADDITIONAL INFORMATION This test was developed and its performance characteristics determined by [facility] in a manner consistent with CLIA requirements. This test has not been cleared or approved by the U.S. Food and Drug Administration. Test Performed by: [facility] - [address] [id number] ADDITIONAL INFORMATION This report is intended for use in clinical monitoring and management of patients. It is not intended for use in employment-related testing. This test was developed and its performance characteristics determined by [facility] in a manner consistent with CLIA requirements. This test has not been cleared or approved by the U.S. Food and Drug Administration. Test Performed by: [facility] - [address] [id number] ADDITIONAL INFORMATION This report is intended for use in clinical monitoring and management of patients. It is not intended for use in employment-related testing. This test was developed and its performance characteristics determined by [facility] in a manner consistent with CLIA requirements. This test has not been cleared or approved by the U.S. Food and Drug Administration. Test Performed by: [facility] - [address] [id number] REFERENCE VALUE Cutoff: 3.0 46 ADDITIONAL INFORMATION This report is intended for use in clinical monitoring and management of patients. It is not intended for use in employment-related testing. This test was developed and its performance characteristics determined by [facility] in a manner consistent with CLIA requirements. This test has not been cleared or approved by the U.S. Food and Drug Administration. Test Performed by: [facility] - [address] [id number] Desirable: <150 Borderline High: 150-199 High: 200-499 Very High: >500 48 Desirable: <200 Borderline High: 200-239 High: >239 49 Low: <40 Desirable: 40-60 High: >60 50 Desirable: <100 Near Optimal: 100-129 Borderline High: 130-159 High: 160-189 Very High: >189 51 Because ethnic data is not always readily available, this report includes an eGFR for both -Americans and non- Americans. The National Kidney Disease Education Program (NKDEP) does not endorse the use of the MDRD equation for patients that are not between the ages of 18 and 70, are , have extremes of body size, muscle mass, or nutritional status, or are non- or non-. According to the National Kidney Foundation, irrespective of diagnosis, the stage of the disease is based on the level of kidney function: Stage Description GFR(mL/min/1.73 m(2)) 1 Kidney damage with normal or decreased GFR 90 2 Kidney damage with mild decrease in GFR 60-89 3 Moderate decrease in GFR 30-59 4 Severe decrease in GFR 15-29 5 Kidney failure <15 (or dialysis) 52 Normal Range 180 to 914 Indeterminate Range 145 to 180 Deficient Range <145 53 Therapeutic target for the treatment of diabetes mellitus patients is <7% HBA1C, and in selective patients <6.0%. Please refer to [employer] diabetic care guidelines for further information. 54 Help Desk Representative: [id number] 55 Because ethnic data is not always readily available, this report includes an eGFR for both -Americans and non- Americans. The National Kidney Disease Education Program (NKDEP) does not endorse the use of the MDRD equation for patients that are not between the ages of 18 and 70, are , have extremes of body size, muscle mass, or nutritional status, or are non- or non-. According to the National Kidney Foundation, irrespective of diagnosis, the stage of the disease is based on the level of kidney function: Stage Description GFR(mL/min/1.73 m(2)) 1 Kidney damage with normal or decreased GFR 90 2 Kidney damage with mild decrease in GFR 60-89 3 Moderate decrease in GFR 30-59 4 Severe decrease in GFR 15-29 5 Kidney failure <15 (or dialysis) 56 [id number] REFERENCE VALUE Cutoff: 500 58 REFERENCE VALUE Cutoff: 200 59 REFERENCE VALUE Cutoff: 100 60 REFERENCE VALUE Cutoff: 150 61 Presumptive Positive Drug confirmation to follow. Presumptive Positive means that the screening method is positive, but the test needs to be run by a confirmatory method before being finalized. ADDITIONAL INFORMATION This report is intended for use in clinical monitoring or management of patients. It is not intended for use in employment-related testing. 62 REFERENCE VALUE Cutoff: 200 mg/L 63 Tylenol 3 64 Metabolite of codeine REFERENCE VALUE Cutoff: 100 65 Jeni Light, MS Contin; Also a minor metabolite (10%) of codeine and can be seen in low concentrations (<2,000 ng/mL) with poppy seed ingestion. 66 Metabolite of morphine REFERENCE VALUE Cutoff: 100 67 Metabolite of heroin 68 Lortab, Tarkio, Vicodin; Also a very minor metabolite of codeine and impurity (<1%) of oxycodone. 69 Metabolite of hydrocodone 70 Metabolite of hydrocodone 71 Dilaudid, Exalgo; Also a metabolite of hydrocodone and a minor (<5%) metabolite of morphine. 72 Metabolite of hydromorphone REFERENCE VALUE Cutoff: 100 73 Endocet, Percocet, Oxycontin 74 Metabolite of oxycodone 75 Numorphan, Opana; Also a metabolite of oxycodone. 76 Metabolite of oxymorphone REFERENCE VALUE Cutoff: 100 77 Metabolite of oxymorphone 78 Actiq, Duragesic, Fentora 79 Metabolite of fentanyl 80 Demerol 81 Metabolite of meperidine 82 Narcan 83 Metabolite of naloxone REFERENCE VALUE Cutoff: 100 84 Dolophine 85 Metabolite of methadone 86 Darvon, Darvocet 87 Metabolite of propoxyphene 88 Tradol, Ultram, Ultracet 89 Metabolite of tramadol 90 Nucynta 91 Metabolite of tapentadol 92 Metabolite of tapentadol REFERENCE VALUE Cutoff: 100 93 Buprenex, Suboxone 94 Metabolite of buprenorphine 95 Metabolite of buprenorphine 96 Test detected the presence of noroxymorphone and raknrsfunvi-7-sefl-glucuronide (metabolites of oxymorphone) and noroxycodone (metabolite of oxycodone). Suspect use of oxymorphone and oxycodone within the past three days. ADDITIONAL INFORMATION This test was developed and its performance characteristics determined by [facility] in a manner consistent with CLIA requirements. This test has not been cleared or approved by the U.S. Food and Drug Administration. Test Performed by: [facility] - [facility] [address] [place] [address] 97 REFERENCE VALUE Cutoff: 3.0 98 ADDITIONAL INFORMATION This report is intended for use in clinical monitoring and management of patients. It is not intended for use in employment-related testing. This test was developed and its performance characteristics determined by [facility] in a manner consistent with CLIA requirements. This test has not been cleared or approved by the U.S. Food and Drug Administration. Test Performed by: [facility] - [facility] [address] [place] [address] 99 Presumptive Positive Drug confirmation to follow. Presumptive Positive means that the screening method is positive, but the test needs to be run by a confirmatory method before being finalized. REFERENCE VALUE Cutoff: 500 100 REFERENCE VALUE Cutoff: 200 101 REFERENCE VALUE Cutoff: 100 102 REFERENCE VALUE Cutoff: 150 103 ADDITIONAL INFORMATION This report is intended for use in clinical monitoring or management of patients. It is not intended for use in employment-related testing. 104 REFERENCE VALUE Cutoff: 200 mg/L 105 Tylenol 3 106 Metabolite of codeine REFERENCE VALUE Cutoff: 100 107 Jeni Light, Contin; Also a minor metabolite (10%) of codeine and can be seen in low concentrations (<2,000 ng/mL) with poppy seed ingestion. 108 Metabolite of morphine REFERENCE VALUE Cutoff: 100 109 Metabolite of heroin 110 Lortab, Tarkio, Vicodin; Also a very minor metabolite of codeine and impurity (<1%) of oxycodone. 111 Metabolite of hydrocodone 112 Metabolite of hydrocodone 113 Dilaudid, Exalgo; Also a metabolite of hydrocodone and a minor (<5%) metabolite of morphine. 114 Metabolite of hydromorphone REFERENCE VALUE Cutoff: 100 115 Endocet, Percocet, Oxycontin 116 Metabolite of oxycodone 117 Numorphan, Opana; Also a metabolite of oxycodone. 118 Metabolite of oxymorphone REFERENCE VALUE Cutoff: 100 119 Metabolite of oxymorphone 120 Actiq, Duragesic, Fentora 121 Metabolite of fentanyl 122 Demerol 123 Metabolite of meperidine 124 Narcan 125 Metabolite of naloxone REFERENCE VALUE Cutoff: 100 126 Dolophine 127 Metabolite of methadone 128 Darvon, Darvocet 129 Metabolite of propoxyphene 130 Tradol, Ultram, Ultracet 131 Metabolite of tramadol 132 Nucynta 133 Metabolite of tapentadol 134 Metabolite of tapentadol REFERENCE VALUE Cutoff: 100 135 Buprenex, Suboxone 136 Metabolite of buprenorphine 137 Metabolite of buprenorphine 138 Test detected the presence of oxycodone and several metabolites (noroxycodone, noroxymorphone, and mwbhgndzkpl-7-vhye-glucuronide). Suspect use of oxycodone or possibly oxycodone and oxymorphone within the past three days. ADDITIONAL INFORMATION This test was developed and its performance characteristics determined by [facility] in a manner consistent with CLIA requirements. This test has not been cleared or approved by the U.S. Food and Drug Administration. Test Performed by: [facility] - [address] [id number] ADDITIONAL INFORMATION This report is intended for use in clinical monitoring and management of patients. It is not intended for use in employment-related testing. This test was developed and its performance characteristics determined by [facility] in a manner consistent with CLIA requirements. This test has not been cleared or approved by the U.S. Food and Drug Administration. 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 M51.16 Intervertebral disc disorders w radiculopathy, lumbar region R41.3 Other amnesia D51.9 Vitamin B12 deficiency anemia, unspecified F17.210 Nicotine dependence, cigarettes, uncomplicated R29.6 Repeated falls Office Visit 09/21/2018 [facility] S32.020D Wedge comprsn 9:30a Services Of Wes Winter MD fx second lum vert, subs for fx w routn heal Office Visit 07/29/2018 [facility] Benjamin Mayo S32.020D Wedge comprsn 11:20a Medicine - Vivi R Sarina Garcia,FACP fx second lum vert, subs for fx w routn heal E11.9 Type 2 diabetes mellitus without complications G47.00 Insomnia, unspecified Office 06/27/2018 [facility] S32.020D Wedge comprsn fx Visit 9:00a [facility] MD Moy second lum vert, subs for fx w routn heal Office 04/29/2018 [facility] Benjamin Mayo M51.16 Intervertebral Visit 2:20p Tiburcio Garcia M.D.,FACP disc disorders w R radiculopathy, lumbar region S32.020D Wedge comprsn fx second lum vert, subs for fx w routn heal E11.9 Type 2 diabetes mellitus without complications Office Visit 03/18/2018 [facility] Benjamin Mayo M51.16 Intervertebral disc 3:00p Tiburcio Garcia M.D.,FACP disorders w Suite R radiculopathy, lumbar region E11.9 Type 2 diabetes mellitus without complications F33.1 Major depressive disorder, recurrent, moderate H93.13 Tinnitus, bilateral Office Visit 02/07/2018 9:00a [facility] Patricia M51.16 Intervertebral disc Medicine - Marker, RPA-C disorders w Suite R radiculopathy, lumbar region F33.1 Major depressive disorder, recurrent, moderate F51.02 Adjustment insomnia Office Visit 12/01/2017 [facility] Benjamin Mayo M51.16 Intervertebral disc 4:00p Tiburcio Garcia M.D.,FACP disorders w Suite R radiculopathy, lumbar region E11.9 Type 2 diabetes mellitus without complications F33.1 Major depressive disorder, recurrent, moderate D64.9 Anemia, unspecified Office 10/14/2017 DoNotUse [facility] Senthil Peterson H69.92 Unspecified Visit 10:00a Tila Trevino M.D. Eustachian tube disorder, left ear Office 09/30/2017 DoNotUse [facility] Senthil Peterson E11.9 Type 2 diabetes Visit 3:00p Tila Trevino M.D. mellitus without complications E78.00 Pure hypercholesterolemia, unspecified M16.11 Unilateral primary osteoarthritis, right hip Plan of Treatment Future Appointment(s):12/16/2018 3:30 pm - Nurse Visit A at [facility] Medicine - [facility]01/10/2019 4:00 pm - Fatuma Bui MD at [facility] Medicine - [facility]05/02/2019 11:00 am - Heri Alberts M.D. at [facility]12/07/2018 - Fatuma Bui, MDR41.3 Other amnesiaComments:your MRI of the brain is [id number] Adjustment disorder with anxietyComments:I recommend you seek counseling during these difficult fjojiZ45.16 Intervertebral disc disorders with radiculopathy, lumbar regComments:I am changing your pain treatment regimen to buprenorphineFollow up:4 isdgaK62.0 Tachycardia, unspecified
--- OUTSIDE RECORDS SUMMARY | 2018-12-14 16:46 | XMS REPORT | Continuity of Care Document ---
:1970 External Reference #:[id number] Author Name Samy Tierney Care Team Providers Name Role Phone Fatuma Bui M.D. Primary Care Physician Unavailable Payers Date Identification Numbers Payment Provider Subscriber Expires: 2017 Policy Number: [id number] Medicaid [employer] Name: 1 1 [address] PayID: [id number] [place] [address] Policy Number: [id number] [place] [employer] Nowak [employer] Number: [id number] [address] PayID: [id number] [place] [address] Problems Active Problems Provider Date Type 2 [...] Benjamin Garcia, 04/29/2018 - every 3rd day Sarina,[facility] 05/03/2018 50mcg/HR Patches 72HR S32.020D Oxycodone HCL 1 by mouth every 150tabs Fatuma Bui MD 03/18/2018 - 10mg 4 hours as 12/07/2018 Tablets needed pain Duloxetine HCL Take one tablet 30caps F33.1 Benjamin Mayo 02/07/2018 - 60mg daily. Sarina Garcia,[facility] 02/07/[address] [place] Venlafaxine HCL Take one tablet 30tabs F33.1 Benjamin Mayo 02/07/2018 - 75mg daily. Sarina Garcia,[facility] 03/18/2018 Tablets Oxycodone-Acetaminop 1 by mouth every 75tabs Benjamin Mayo 12/01/2017 - hen 4 hours as Sarina Garcia,[facility] 03/18/2018 7.5-325mg Tablets needed Duloxetine HCL take 1 capsule 30caps F33.1 Benjamin Mayo 12/01/2017 - 30mg by mouth every Sarina Garcia,[facility] 02/07/[address] Chitra Mtz 12 [...] H/L Range Note CBC Auto Diff 12/07/2018 [facility] White Blood 7.2 10^3/uL N 3.5-10.[address] [place] [address] [phone] Red Blood Count 4.37 10^6/uL N 3.70-4.87 [...] Blood Cells % 0.0 Laboratory test 12/07/2018 [facility] TSH (Thyroid 0.54 mcIU/mL N 0.34-5.[address] Stim Horm) [place] [address] [phone] Basic Metabolic 12/07/2018 [facility] Sodium 142 mmol/L N 135- [address] [place] [address] [phone] Potassium 5.0 mmol/L N 3.5-5.0 Chloride 106 mmol/L N 101-111 Co2 Carbon Dioxide 24 mmol/L N 22-32 Anion Gap 12 mmol/L High 2-11 Glucose 324 mg/dL High 70-100 Blood Urea Nitrogen 7 mg/dL N 6-24 Creatinine 0.66 mg/dL N 0.51-0.95 BUN/Creatinine Ratio 10.6 N 8-20 Calcium 10.3 mg/dL N 8.6-10.3 Egfr Non- 95.2 >60 Egfr 115.2 >60 1 Drug Abuse 10/13/2018 [facility] Urine Presumptive Abnormal 2, 3 [address] Amphetamine Posi <SEE NOTE> [place] [address] ng/mL [phone] Urine Barbiturates Negative ng/mL 4 Urine Benzodiazepines Negative ng/mL 5 Urine Cocaine Presumptive Posi <SEE NOTE> Abnormal 6 ng/mL Urine Phencyclidine Negative ng/mL Cutoff: 25 Urine Tetrahydrocannabinol Presumptive Posi <SEE NOTE> Abnormal Cutoff: 50 7 ng/mL Creatinine, Urine 235.9 mg/dL Specific [place] 1.023 pH 5.5 Oxidants Negative 8 Adulterants Comment Normal Codeine, Ur Not Detected ng/mL Cutoff: 25 9 Lvcsrgx-4-oeik-glucuronide, Ur Not Detected ng/mL 10 Morphine, Ur Not Detected ng/mL Cutoff: 25 11 Qzohfmhh-9-jlxz-glucuronide, U Not Detected ng/mL 12 6-monoacetylmorphine, Ur Not Detected ng/mL Cutoff: 25 13 Hydrocodone, Ur Not Detected ng/mL Cutoff: 25 14 Norhydrocodone, Ur Not Detected ng/mL Cutoff: 25 15 Dihydrocodeine, Ur Not Detected ng/mL Cutoff: 25 16 Hydromorphone, Ur Not Detected ng/mL Cutoff: 25 17 Srnvsqtwxfvbe0ckqhflpwehvavqy Not Detected ng/mL 18 Oxycodone, Ur Present ng/mL Abnormal Cutoff: 25 19 Noroxycodone, Ur Present ng/mL Abnormal Cutoff: 25 20 Oxymorphone, Ur Present ng/mL Abnormal Cutoff: 25 21 Qdifosjwpeb-1-rurh-glucuronide Present ng/mL Abnormal 22 Noroxymorphone, Ur Present ng/mL Abnormal Cutoff: 25 23 Fentanyl, Ur Present ng/mL Abnormal Cutoff: 2 24 Norfentanyl, Ur Present ng/mL Abnormal Cutoff: 2 25 Meperidine, Ur Not Detected ng/mL Cutoff: 25 26 Normeperidine, Ur Not Detected ng/mL Cutoff: 25 27 Naloxone, Ur Not Detected ng/mL Cutoff: 25 28 Pfyoneyx-2-rhvd-glucuronide, U Not Detected ng/mL 29 Methadone, Ur [...] Ur Not Detected ng/mL Cutoff: 50 37 Wcvajavyfe-omrs-pjitfkxwqiw, U Not Detected ng/mL 38 Buprenorphine, Ur Not Detected ng/mL Cutoff: 5 39 Norbuprenorphine, Ur Not Detected ng/mL Cutoff: 5 40 Norbuprenorphine glucuronide Not Detected ng/mL Cutoff: 20 41 Opioid Interpretation See Comment 42 Urine 10/13/2018 [facility] Urine Negative Cutoff: [address] Amphetamine by ng/[place] [address] GC/MS [phone] Urine Methamphetamine by GC/MS Negative ng/mL Cutoff: 25 Phentermine-by GC/MS Negative ng/mL Cutoff: 25 Pseudoephedrine/Ephedr GC/MS Negative ng/mL Cutoff: 25 Mda(Ecstacy metabolite) GC/MS Negative ng/mL Cutoff: 25 Mdma(Ecstacy)-by GC/MS Negative ng/mL Cutoff: 25 Urine Amphetamines Interp Negative. 43 Urine Cocaine 10/13/2018 [facility] Urine Negative Cutoff: [address] Cocaine ng/[place] [address] Confirm [phone] (GC/MS) Ur Benzoylecgonine Confirm 200 ng/mL Cutoff: 50 Urine Cocaine Interpretation Positive. 44 THC Confirmation 10/13/2018 [facility] Urine Carboxy 25 ng/mL [address] THC Confirm [place], [place] [id number] [phone] Urine THC Interpretation Positive. 46 Laboratory test 10/13/2018 [facility] Hemoglobin A1c 7.2 High 5-7 finding Lipid Profile 03/31/2018 [facility] Triglycerides 289 mg/dL 47 (Trig/Chol/HDL) [address] [place] [address] [phone] Cholesterol 244 mg/dL 48 HDL Cholesterol 44.0 mg/dL 49 LDL Cholesterol 142 mg/dL 50 Comp Metabolic Panel 03/31/2018 [facility] Sodium 137 mmol/L N 135-[address] [place] [address] [phone] Potassium 5.2 mmol/L High 3.5-5.0 Chloride 102 [...] Egfr 96.8 >60 51 Urine Microalbumin 03/31/2018 [facility] Ur Microalbumin 223.[address] (mg/L) [place] [address] [phone] Urine Creatinine 247.06 mg/dL Urine Microalbumin/Creatinine 90.2 High <31 Laboratory test 03/31/2018 [facility] TSH (Thyroid 0.90 mcIU/mL N 0.34-5.[address] Stim Horm) [place] [address] [phone] Vitamin B12 217 pg/mL N 180-902 52 CBC Auto 03/31/2018 [facility] White Blood 11.1 10^3/uL High 3.5-10.[address] [place] [place] [address] [phone] Red Blood Count 4.45 10^6/uL N 4.00-5.40 [...] Blood Cells % 0.1 Laboratory test 03/31/2018 [facility] Free T4 (Free 0.63 ng/dL N 0.61-1.[address] Thyroxine) [place] [address] [phone] Hemoglobin A1c (Glyco HGB) 6.8 % High 4.0-5.6 53 Laboratory test 03/18/2018 [facility] Hemoglobin A1c 7.4 High 5-7 finding BUN/Creat/GFR 02/09/2018 [facility] Poc Blood Urea 7 mg/dL Low 8-[address] [place] [address] [phone] Poc Creatinine 0.6 mg/dL N 0.6-1.3 54 Poc BUN/Creatinine Ratio 11.7 N 8-20 Egfr Non- 106.7 >60 Egfr 129.1 >60 55 Drug Abuse 02/07/2018 [facility] Urine Amphetamine Negative ng/ mL 56, 57 [address] [place] [address] [phone] Urine Barbiturates Negative ng/mL 58 Urine Benzodiazepines Negative ng/mL 59 Urine Cocaine Negative ng/mL 60 Urine Phencyclidine Negative ng/mL Cutoff: 25 Urine Tetrahydrocannabinol Presumptive Posi <SEE NOTE> Abnormal Cutoff: 50 61 ng/mL Creatinine, Urine 63.4 mg/dL Specific [place] 1.008 pH 5.9 Oxidants Negative 62 Adulterants Comment Normal Codeine, Ur Not Detected ng/mL Cutoff: 25 63 Iivucuf-4-bych-glucuronide, Ur Not Detected ng/mL 64 Morphine, Ur Not Detected ng/mL Cutoff: 25 65 Fklczigq-2-jlry-glucuronide, U Not Detected ng/mL 66 6-monoacetylmorphine, Ur Not Detected ng/mL Cutoff: 25 67 Hydrocodone, Ur Not Detected ng/mL Cutoff: 25 68 Norhydrocodone, Ur Not Detected ng/mL Cutoff: 25 69 Dihydrocodeine, Ur Not Detected ng/mL Cutoff: 25 70 Hydromorphone, Ur Not Detected ng/mL Cutoff: 25 71 Lkjtywbzesjfo8mwogsokqibzwurs Not Detected ng/mL 72 Oxycodone, Ur Not Detected ng/mL Cutoff: 25 73 Noroxycodone, Ur Present ng/mL Abnormal Cutoff: 25 74 Oxymorphone, Ur Not Detected ng/mL Cutoff: 25 75 Bnisyxaodhc-9-ugxi-glucuronide Present ng/mL Abnormal 76 Noroxymorphone, Ur Present ng/mL Abnormal Cutoff: 25 77 Fentanyl, Ur Not Detected ng/mL Cutoff: 2 78 Norfentanyl, Ur Not Detected ng/mL Cutoff: 2 79 Meperidine, Ur Not Detected ng/mL Cutoff: 25 80 Normeperidine, Ur Not Detected ng/mL Cutoff: 25 81 Naloxone, Ur Not Detected ng/mL Cutoff: 25 82 Oxwtnava-4-zrtc-glucuronide, U Not Detected ng/mL 83 Methadone, Ur [...] Ur Not Detected ng/mL Cutoff: 50 91 Kzqsgocrid-vnrk-xdltwdrzhcw, U Not Detected ng/mL 92 Buprenorphine, Ur Not Detected ng/mL Cutoff: 5 93 Norbuprenorphine, Ur Not Detected ng/mL Cutoff: 5 94 Norbuprenorphine glucuronide Not Detected ng/mL Cutoff: 20 95 Opioid Interpretation See Comment 96 THC Confirmation 02/07/2018 [facility] Urine Carboxy 33 ng/mL [address] [place] [address] [phone] Urine THC Interpretation Positive. 98 Drug Abuse 12/01/2017 [facility] Urine Presumptive Abnormal 99 [address] Amphetamine Posi <SEE NOTE> [place] [address] ng/mL [phone] Urine Barbiturates Negative ng/mL 100 Urine Benzodiazepines Negative ng/mL 101 Urine Cocaine Negative ng/mL 102 Urine Phencyclidine Negative ng/mL Cutoff: 25 Urine Tetrahydrocannabinol Negative ng/mL Cutoff: 50 103 Creatinine, Urine 149.4 mg/dL Specific [place] 1.014 pH 5.8 Oxidants Negative 104 Adulterants Comment Normal Codeine, Ur Not Detected ng/mL Cutoff: 25 105 Typwuzk-4-jsiv-glucuronide, Ur Not Detected ng/mL 106 Morphine, Ur Not Detected ng/mL Cutoff: 25 107 Qaaizfco-6-eduj-glucuronide, U Not Detected ng/mL 108 6-monoacetylmorphine, Ur Not Detected ng/mL Cutoff: 25 109 Hydrocodone, Ur Not Detected ng/mL Cutoff: 25 110 Norhydrocodone, Ur Not Detected ng/mL Cutoff: 25 111 Dihydrocodeine, Ur Not Detected ng/mL Cutoff: 25 112 Hydromorphone, Ur Not Detected ng/mL Cutoff: 25 113 Ztzwjghjfervp4lzdjgxjnckygred Not Detected ng/mL 114 Oxycodone, Ur Present ng/mL Abnormal Cutoff: 25 115 Noroxycodone, Ur Present ng/mL Abnormal Cutoff: 25 116 Oxymorphone, Ur Not Detected ng/mL Cutoff: 25 117 Uiabkhztocv-3-gbmr-glucuronide Present ng/mL Abnormal 118 Noroxymorphone, Ur Present ng/mL Abnormal Cutoff: 25 119 Fentanyl, Ur Not Detected ng/mL Cutoff: 2 120 Norfentanyl, Ur Not Detected ng/mL Cutoff: 2 121 Meperidine, Ur Not Detected ng/mL Cutoff: 25 122 Normeperidine, Ur Not Detected ng/mL Cutoff: 25 123 Naloxone, Ur Not Detected ng/mL Cutoff: 25 124 Wgzmmzva-5-rtqm-glucuronide, U Not Detected ng/mL 125 Methadone, Ur [...] Ur Not Detected ng/mL Cutoff: 50 133 Qwspiuucka-enlb-jnngfbeltxj, U Not Detected ng/mL 134 Buprenorphine, Ur Not Detected ng/mL Cutoff: 5 135 Norbuprenorphine, Ur Not Detected ng/mL Cutoff: 5 136 Norbuprenorphine glucuronide Not Detected ng/mL Cutoff: 20 137 Opioid Interpretation See Comment 138 Urine 12/01/2017 [facility] Urine Negative Cutoff: [address] Amphetamine by ng/[place] [address] GC/MS [phone] Urine Methamphetamine by GC/MS Negative ng/mL Cutoff: 25 Phentermine-by GC/MS Negative ng/mL Cutoff: 25 Pseudoephedrine/Ephedr GC/MS Negative ng/mL Cutoff: 25 Mda(Ecstacy metabolite) GC/MS Negative ng/mL Cutoff: 25 Mdma(Ecstacy)-by GC/MS Negative ng/mL Cutoff: 25 Urine Amphetamines Interp Negative. 139 CBC Auto 09/22/2017 [facility] White Blood 11.0 10^3/uL High 3.5-10.[address] [place] [address] [phone] Red Blood Count 2.68 10^6/uL Low 4.0-5.4 [...] Antibody Screen Interp Neg Pre-Op 12-Lead EKG ([facility]) 09/08/2017 N2N/CCD Import Atrial rate 105 BPM P [place] 68 degrees P-R Interval 142 ms Q-T Interval 344 ms QRS Duration 80 ms QTC Calculation (Bezet) 454 ms R [place] 68 degrees T [place] 47 degrees Ventricular Rate 105 BPM Comprehensive [...] 5 Kidney failure <15 (or dialysis) 2 [id number] Presumptive Positive Drug confirmation to follow. [...] 100 13 Metabolite of heroin 14 Lortab, Donovan, Vicodin; Also a very minor metabolite of [...] and several metabolites (noroxycodone, oxymorphone, noroxymorphone, and yhdsojotqqk-7-pcen-glucuronide). Suspect use of oxycodone and/or oxymorphone within the past three days. Test detected the presence of fentanyl and its metabolite (norfentanyl). Suspect use of fentanyl within the past three days. ADDITIONAL INFORMATION This test was developed and its performance characteristics determined by [facility] in a manner consistent with CLIA requirements. This test has not been cleared or approved by the U.S. Food and Drug Administration. Test Performed by: [facility] - [address] [address] ADDITIONAL INFORMATION This report is intended for use in clinical monitoring and management of patients. It is not intended for use in employment-related testing. This test was developed and its performance characteristics determined by [facility] in a manner consistent with CLIA requirements. This test has not been cleared or approved by the U.S. Food and Drug Administration. Test Performed by: [facility] - [address] [address] ADDITIONAL INFORMATION This report is intended for use in clinical monitoring and management of patients. It is not intended for use in employment-related testing. This test was developed and its performance characteristics determined by [facility] in a manner consistent with CLIA requirements. This test has not been cleared or approved by the U.S. Food and Drug Administration. Test Performed by: [facility] - [address] [address] 45 REFERENCE VALUE Cutoff: 3.0 46 ADDITIONAL INFORMATION This report is intended for use in clinical monitoring and management of patients. It is not intended for use in employment-related testing. This test was developed and its performance characteristics determined by [facility] in a manner consistent with CLIA requirements. This test has not been cleared or approved by the U.S. Food and Drug Administration. Test Performed by: [facility] - [address] [address] 47 Desirable: <150 Borderline High: 150-199 High: [...] in selective patients <6.0%. Please refer to [place] Diabetes Association diabetic care guidelines for further information. 54 Side Splitter: [id number] Because ethnic data is not always [...] 5 Kidney failure <15 (or dialysis) 56 [id number] REFERENCE VALUE Cutoff: 500 58 REFERENCE [...] 100 67 Metabolite of heroin 68 Lortab, Donovan, Vicodin; Also a very minor metabolite of [...] Test detected the presence of noroxymorphone and mcstxbefpuj-7-inya-glucuronide (metabolites of oxymorphone) and noroxycodone (metabolite of oxycodone). Suspect use of oxymorphone and oxycodone within the past three days. ADDITIONAL INFORMATION This test was developed and its performance characteristics determined by [facility] in a manner consistent with CLIA requirements. This test has not been cleared or approved by the U.S. Food and Drug Administration. Test Performed by: [facility] - [facility] [address] [place] [address] 97 REFERENCE VALUE Cutoff: 3.0 98 ADDITIONAL INFORMATION This report is intended for use in clinical monitoring and management of patients. It is not intended for use in employment-related testing. This test was developed and its performance characteristics determined by [facility] in a manner consistent with CLIA requirements. This test has not been cleared or approved by the U.S. Food and Drug Administration. Test Performed by: [facility] - [facility] [address] [place] [address] 99 Presumptive Positive Drug confirmation to follow. [...] 100 109 Metabolite of heroin 110 Lortab, Donovan, Vicodin; Also a very minor metabolite of [...] oxycodone and several metabolites (noroxycodone, noroxymorphone, and hfsiifjhfzg-5-qkbh-glucuronide). Suspect use of oxycodone or possibly oxycodone and oxymorphone within the past three days. ADDITIONAL INFORMATION This test was developed and its performance characteristics determined by [facility] in a manner consistent with CLIA requirements. This test has not been cleared or approved by the U.S. Food and Drug Administration. Test Performed by: [facility] - [address] [address] ADDITIONAL INFORMATION This report is intended for use in clinical monitoring and management of patients. It is not intended for use in employment-related testing. This test was developed and its performance characteristics determined by [facility] in a manner consistent with CLIA requirements. This test has not been cleared or approved by the U.S. Food and Drug Administration. 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00 Insomnia, unspecified Office 06/27/2018 [facility] S32.020D Wedge comprsn fx Visit 9:00a [facility] MD Moy second lum vert, subs for fx w routn heal Office 04/29/2018 [facility] Benjamin Mayo M51.16 Intervertebral Visit 2:20p Tiburcio Garcia M.D.,FACP disc disorders w R radiculopathy, lumbar region S32.020D Wedge comprsn fx second lum vert, subs for fx w routn heal E11.9 Type 2 diabetes mellitus without complications Office Visit 03/18/2018 [facility] Benjamin Mayo M51.16 Intervertebral disc 3:00p Tiburcio Garcia M.D.,FACP disorders w Suite R radiculopathy, lumbar region E11.9 Type 2 diabetes mellitus without complications F33.1 Major depressive disorder, recurrent, moderate H93.13 Tinnitus, bilateral Office Visit 02/07/2018 9:00a [facility] Patricia M51.16 Intervertebral disc Medicine - Marker, RPA-C disorders w Suite R radiculopathy, lumbar region F33.1 Major depressive disorder, recurrent, moderate F51.02 Adjustment insomnia Office Visit 12/01/2017 [facility] Benjamin Mayo M51.16 Intervertebral disc 4:00p Tiburcio Garcia M.D.,FACP disorders w Suite R radiculopathy, lumbar region E11.9 Type 2 diabetes mellitus without complications F33.1 Major depressive disorder, recurrent, moderate D64.9 Anemia, unspecified Office 10/14/2017 [facility]Not[facility] Senthil Peterson H69.92 Unspecified Visit 10:00a Tila Trevino M.D. Eustachian tube disorder, left ear Office 09/30/2017 [facility] Senthil Peterson E11.9 Type 2 diabetes Visit 3:00p Tila Trevino M.D. mellitus without complications E78.00 Pure hypercholesterolemia, unspecified M16.11 Unilateral primary osteoarthritis, right hip Plan of Treatment Future Appointment(s):12/16/2018 3:30 pm - Nurse Visit A at [facility] - [facility]01/10/2019 4:00 pm - Fatuma Bui MD at [facility] - [facility]05/02/2019 11:00 am - Heri Alberts M.D. at [facility]12/07/2018 - Fatuma Bui, MDR41.3 Other amnesiaComments:your MRI of the brain is rzjbljO37.22 Adjustment disorder with anxietyComments:I recommend you seek counseling during these difficult gzobnR52.16 Intervertebral disc disorders with radiculopathy, lumbar regComments:I am changing your pain treatment regimen to buprenorphineFollow up:4 vetkgZ91.0 Tachycardia, unspecified
--- OUTSIDE RECORDS SUMMARY | 2018-12-14 16:47 | XMS REPORT | Continuity of Care Document ---
:1970 External Reference #:[id number] Author Name Mariam Gonzales Care Team Providers Name Role Phone Fatuma Bui M.D. Primary Care Physician Unavailable Payers Date Identification Numbers Payment Provider Subscriber Expires: 2017 Policy Number: [id number] Medicaid Maurice Nowak Group Name: 1 1 [address] PayID: [id number] [place] [address] Policy Number: [id number] [place] Maurice Nowak Group Number: [id number] [address] PayID: [id number] [place] [address] Problems Active Problems Provider Date Type 2 [...] 12/07/2018 Patches 72HR Fentanyl topical q3days 5units M51.16 Fatuma Bui MD 07/29/2018 - 08/17/2018 37.5mcg/HR Patches 72HR S32.020D Fentanyl apply 1 patch 5units [id number] Leila Nation MD 05/03/2018 - 25mcg/HR once every 3 07/29/2018 Patches 72HR days S32.020D Fentanyl one topical 10units M51.16 Benjamin Garcia, 04/29/2018 - every 3rd day Sarina,[facility] 05/03/2018 50mcg/HR Patches 72HR S32.020D Oxycodone HCL 1 by mouth every 150tabs Fatuma Bui MD 03/18/2018 - 10mg 4 hours as 12/07/2018 Tablets needed pain Duloxetine HCL Take one tablet 30caps F33.1 Benjamin Mayo 02/07/2018 - 60mg daily. Sarina Garcia,[facility] 02/07/[address] [place] Venlafaxine HCL Take one tablet 30tabs F33.1 Benjamin Mayo 02/07/2018 - 75mg daily. Sarina Garcia,[facility] 03/18/2018 Tablets Oxycodone-Acetaminop 1 by mouth every 75tabs Benjamin Mayo 12/01/2017 - hen 4 hours as Sarina Garcia,[facility] 03/18/2018 7.5-325mg Tablets needed Duloxetine HCL take 1 capsule 30caps F33.1 Benjamin Mayo 12/01/2017 - 30mg by mouth every Sarina Garcia,[facility] 02/07/[address] Chitra Mtz 12 Hour [...] Medication SIG Qnty Indications Ordering Provider Date B-12 Injection Nurse Visit A 12/02/2018 Injection B-12 Injection [...] Date Facility Test Result H/L Range Note Drug Abuse [facility] Urine Presumptive Posi Abnormal 1, 2 20 Urine [address] Amphetamine <SEE NOTE> ng/[place] [address] [phone] Urine Barbiturates Negative ng/mL 3 Urine Benzodiazepines Negative ng/mL 4 Urine Cocaine Presumptive Posi <SEE NOTE> Abnormal 5 ng/mL Urine Phencyclidine Negative ng/mL Cutoff: 25 Urine Tetrahydrocannabinol Presumptive Posi <SEE NOTE> Abnormal Cutoff: 50 6 ng/mL Creatinine, Urine 235.9 mg/dL Specific [place] 1.023 pH 5.5 Oxidants Negative 7 Adulterants Comment Normal Codeine, Ur Not Detected ng/mL Cutoff: 25 8 Rchzstm-9-qhgz-glucuronide, Ur Not Detected ng/mL 9 Morphine, Ur Not Detected ng/mL Cutoff: 25 10 Vxoggkgh-9-ezum-glucuronide, U Not Detected ng/mL 11 6-monoacetylmorphine, Ur Not Detected ng/mL Cutoff: 25 12 Hydrocodone, Ur Not Detected ng/mL Cutoff: 25 13 Norhydrocodone, Ur Not Detected ng/mL Cutoff: 25 14 Dihydrocodeine, Ur Not Detected ng/mL Cutoff: 25 15 Hydromorphone, Ur Not Detected ng/mL Cutoff: 25 16 Cisgnpuqeryba2gwmnfgbwcaigust Not Detected ng/mL 17 Oxycodone, Ur Present ng/mL Abnormal Cutoff: 25 18 Noroxycodone, Ur Present ng/mL Abnormal Cutoff: 25 19 Oxymorphone, Ur Present ng/mL Abnormal Cutoff: 25 20 Ipljjbyricc-7-hqcb-glucuronide Present ng/mL Abnormal 21 Noroxymorphone, Ur Present ng/mL Abnormal Cutoff: 25 22 Fentanyl, Ur Present ng/mL Abnormal Cutoff: 2 23 Norfentanyl, Ur Present ng/mL Abnormal Cutoff: 2 24 Meperidine, Ur Not Detected ng/mL Cutoff: 25 25 Normeperidine, Ur Not Detected ng/mL Cutoff: 25 26 Naloxone, Ur Not Detected ng/mL Cutoff: 25 27 Bvwpqrjl-1-skwt-glucuronide, U Not Detected ng/mL 28 Methadone, Ur Not Detected ng/mL Cutoff: 25 29 Eddp, Ur Not Detected ng/mL Cutoff: 25 30 Propoxyphene, Ur Not Detected ng/mL Cutoff: 25 31 Norpropoxyphene, Ur Not Detected ng/mL Cutoff: 25 32 Tramadol, Ur Not Detected ng/mL Cutoff: 25 33 O-desmethyltramadol, Ur Not Detected ng/mL Cutoff: 25 34 Tapentadol, Ur Not Detected ng/mL Cutoff: 25 35 N-desmethyltapentadol, Ur Not Detected ng/mL Cutoff: 50 36 Ncuoovtxkd-zrvd-drikmgctvej, U Not Detected ng/mL 37 Buprenorphine, Ur Not Detected ng/mL Cutoff: 5 38 Norbuprenorphine, Ur Not Detected ng/mL Cutoff: 5 39 Norbuprenorphine glucuronide Not Detected ng/mL Cutoff: 20 40 Opioid Interpretation See Comment 41 Urine 10/13/2018 [facility] Urine Negative Cutoff: [address] Amphetamine by ng/[place] [address] GC/MS [phone] Urine Methamphetamine by GC/MS Negative ng/mL Cutoff: 25 Phentermine-by GC/MS Negative ng/mL Cutoff: 25 Pseudoephedrine/Ephedr GC/MS Negative ng/mL Cutoff: 25 Mda(Ecstacy metabolite) GC/MS Negative ng/mL Cutoff: 25 Mdma(Ecstacy)-by GC/MS Negative ng/mL Cutoff: 25 Urine Amphetamines Interp Negative. 42 Urine Cocaine 10/13/2018 [facility] Urine Negative Cutoff: [address] Cocaine ng/[place] [address] Confirm [phone] (GC/MS) Ur Benzoylecgonine Confirm 200 ng/mL Cutoff: 50 Urine Cocaine Interpretation Positive. 43 THC Confirmation 10/13/2018 [facility] Urine Carboxy 25 ng/mL [address] THC Confirm [place], [place] [id number] [phone] Urine THC Interpretation Positive. 45 Laboratory test 10/13/2018 [facility] Hemoglobin A1c 7.2 High 5-7 finding Lipid Profile 03/31/2018 [facility] Triglycerides 289 mg/dL 46 (Trig/Chol/HDL) [address] [place] [address] [phone] Cholesterol 244 mg/dL 47 HDL Cholesterol 44.0 mg/dL 48 LDL Cholesterol 142 mg/dL 49 Comp Metabolic Panel 03/31/2018 [facility] Sodium 137 mmol/L N 135-[address] [place] [address] [phone] Potassium 5.2 mmol/L High 3.5-5.0 Chloride 102 [...] Egfr Non- 80.0 >60 Egfr 96.8 >60 50 Urine Microalbumin 03/31/2018 [facility] Ur Microalbumin 223.[address] (mg/L) [place] [address] [phone] Urine Creatinine 247.06 mg/dL Urine Microalbumin/Creatinine 90.2 High <31 Laboratory test 03/31/2018 [facility] TSH (Thyroid 0.90 mcIU/mL N 0.34-5.[address] Stim Horm) [place] [address] [phone] Vitamin B12 217 pg/mL N 180-914 51 CBC Auto 03/31/2018 [facility] White Blood 11.1 10^3/uL High 3.5-10.[address] [place] [address] [phone] Red Blood Count 4.45 10^6/uL N 4.00-5.40 [...] Blood Cells % 0.1 Laboratory test 03/31/2018 [facility] Free T4 (Free 0.63 ng/dL N 0.61-1.[address] Thyroxine) [place] [address] [phone] Hemoglobin A1c (Glyco HGB) 6.8 % High 4.0-5.6 52 Laboratory test 03/18/2018 [facility] Hemoglobin A1c 7.4 High 5-7 finding BUN/Creat/GFR 02/09/2018 [facility] Poc Blood Urea 7 mg/dL Low 8-[address] [place] [address] [phone] Poc Creatinine 0.6 mg/dL N 0.6-1.3 53 Poc BUN/Creatinine Ratio 11.7 N 8-20 Egfr Non- 106.7 >60 Egfr 129.1 >60 54 Drug Abuse 02/07/2018 [facility] Urine Amphetamine Negative ng/ mL 55, 56 [address] [place] [address] [phone] Urine Barbiturates Negative ng/mL 57 Urine Benzodiazepines Negative ng/mL 58 Urine Cocaine Negative ng/mL 59 Urine Phencyclidine Negative ng/mL Cutoff: 25 Urine Tetrahydrocannabinol Presumptive Posi <SEE NOTE> Abnormal Cutoff: 50 60 ng/mL Creatinine, Urine 63.4 mg/dL Specific [place] 1.008 pH 5.9 Oxidants Negative 61 Adulterants Comment Normal Codeine, Ur Not Detected ng/mL Cutoff: 25 62 Dvwdevr-3-fzqr-glucuronide, Ur Not Detected ng/mL 63 Morphine, Ur Not Detected ng/mL Cutoff: 25 64 Drrrvsto-2-twta-glucuronide, U Not Detected ng/mL 65 6-monoacetylmorphine, Ur Not Detected ng/mL Cutoff: 25 66 Hydrocodone, Ur Not Detected ng/mL Cutoff: 25 67 Norhydrocodone, Ur Not Detected ng/mL Cutoff: 25 68 Dihydrocodeine, Ur Not Detected ng/mL Cutoff: 25 69 Hydromorphone, Ur Not Detected ng/mL Cutoff: 25 70 Kbgiemcxudioc1dstxplpuncbydhh Not Detected ng/mL 71 Oxycodone, Ur Not Detected ng/mL Cutoff: 25 72 Noroxycodone, Ur Present ng/mL Abnormal Cutoff: 25 73 Oxymorphone, Ur Not Detected ng/mL Cutoff: 25 74 Rqiiodmbzbk-1-dwer-glucuronide Present ng/mL Abnormal 75 Noroxymorphone, Ur Present ng/mL Abnormal Cutoff: 25 76 Fentanyl, Ur Not Detected ng/mL Cutoff: 2 77 Norfentanyl, Ur Not Detected ng/mL Cutoff: 2 78 Meperidine, Ur Not Detected ng/mL Cutoff: 25 79 Normeperidine, Ur Not Detected ng/mL Cutoff: 25 80 Naloxone, Ur Not Detected ng/mL Cutoff: 25 81 Cxbxpjax-6-yrek-glucuronide, U Not Detected ng/mL 82 Methadone, Ur Not Detected ng/mL Cutoff: 25 83 Eddp, Ur Not Detected ng/mL Cutoff: 25 84 Propoxyphene, Ur Not Detected ng/mL Cutoff: 25 85 Norpropoxyphene, Ur Not Detected ng/mL Cutoff: 25 86 Tramadol, Ur Not Detected ng/mL Cutoff: 25 87 O-desmethyltramadol, Ur Not Detected ng/mL Cutoff: 25 88 Tapentadol, Ur Not Detected ng/mL Cutoff: 25 89 N-desmethyltapentadol, Ur Not Detected ng/mL Cutoff: 50 90 Hryeuhdmej-vapp-gfhavmqzhrc, U Not Detected ng/mL 91 Buprenorphine, Ur Not Detected ng/mL Cutoff: 5 92 Norbuprenorphine, Ur Not Detected ng/mL Cutoff: 5 93 Norbuprenorphine glucuronide Not Detected ng/mL Cutoff: 20 94 Opioid Interpretation See Comment 95 THC Confirmation 02/07/2018 [facility] Urine Carboxy 33 ng/mL [address] [place] [address] [phone] Urine THC Interpretation Positive. 97 Drug Abuse 12/01/2017 [facility] Urine Presumptive Abnormal 98 [address] Amphetamine Posi <SEE NOTE> [place] [address] ng/mL [phone] Urine Barbiturates Negative ng/mL 99 Urine Benzodiazepines Negative ng/mL 100 Urine Cocaine Negative ng/mL 101 Urine Phencyclidine Negative ng/mL Cutoff: 25 Urine Tetrahydrocannabinol Negative ng/mL Cutoff: 50 102 Creatinine, Urine 149.4 mg/dL Specific [place] 1.014 pH 5.8 Oxidants Negative 103 Adulterants Comment Normal Codeine, Ur Not Detected ng/mL Cutoff: 25 104 Zjqqhbd-7-srhf-glucuronide, Ur Not Detected ng/mL 105 Morphine, Ur Not Detected ng/mL Cutoff: 25 106 Mtnznkgc-2-lfuq-glucuronide, U Not Detected ng/mL 107 6-monoacetylmorphine, Ur Not Detected ng/mL Cutoff: 25 108 Hydrocodone, Ur Not Detected ng/mL Cutoff: 25 109 Norhydrocodone, Ur Not Detected ng/mL Cutoff: 25 110 Dihydrocodeine, Ur Not Detected ng/mL Cutoff: 25 111 Hydromorphone, Ur Not Detected ng/mL Cutoff: 25 112 Okfvcuvwjxirh7ezxelwbdrbxchbd Not Detected ng/mL 113 Oxycodone, Ur Present ng/mL Abnormal Cutoff: 25 114 Noroxycodone, Ur Present ng/mL Abnormal Cutoff: 25 115 Oxymorphone, Ur Not Detected ng/mL Cutoff: 25 116 Cqmwvayiehz-0-enzd-glucuronide Present ng/mL Abnormal 117 Noroxymorphone, Ur Present ng/mL Abnormal Cutoff: 25 118 Fentanyl, Ur Not Detected ng/mL Cutoff: 2 119 Norfentanyl, Ur Not Detected ng/mL Cutoff: 2 120 Meperidine, Ur Not Detected ng/mL Cutoff: 25 121 Normeperidine, Ur Not Detected ng/mL Cutoff: 25 122 Naloxone, Ur Not Detected ng/mL Cutoff: 25 123 Mwdwnedy-3-somr-glucuronide, U Not Detected ng/mL 124 Methadone, Ur Not Detected ng/mL Cutoff: 25 125 Eddp, Ur Not Detected ng/mL Cutoff: 25 126 Propoxyphene, Ur Not Detected ng/mL Cutoff: 25 127 Norpropoxyphene, Ur Not Detected ng/mL Cutoff: 25 128 Tramadol, Ur Not Detected ng/mL Cutoff: 25 129 O-desmethyltramadol, Ur Not Detected ng/mL Cutoff: 25 130 Tapentadol, Ur Not Detected ng/mL Cutoff: 25 131 N-desmethyltapentadol, Ur Not Detected ng/mL Cutoff: 50 132 Lrrnpcxteb-ybou-kloqypnsffv, U Not Detected ng/mL 133 Buprenorphine, Ur Not Detected ng/mL Cutoff: 5 134 Norbuprenorphine, Ur Not Detected ng/mL Cutoff: 5 135 Norbuprenorphine glucuronide Not Detected ng/mL Cutoff: 20 136 Opioid Interpretation See Comment 137 Urine 12/01/2017 [facility] Urine Negative Cutoff: [address] Amphetamine by ng/[place] [address] GC/MS [phone] Urine Methamphetamine by GC/MS Negative ng/mL Cutoff: 25 Phentermine-by GC/MS Negative ng/mL Cutoff: 25 Pseudoephedrine/Ephedr GC/MS Negative ng/mL Cutoff: 25 Mda(Ecstacy metabolite) GC/MS Negative ng/mL Cutoff: 25 Mdma(Ecstacy)-by GC/MS Negative ng/mL Cutoff: 25 Urine Amphetamines Interp Negative. 138 CBC Auto 09/22/2017 [facility] White Blood 11.0 10^3/uL High 3.5-10.[address] Count [place], [place] [id number] [phone] Red Blood Count 2.68 10^6/uL Low 4.0-5.4 [...] N2N/CCD Import Glucose, 216 mg/dL 70 - (Poct) Accu-Check Accu-Check Glucose 09/16/2017 N2N/CCD Import Glucose, 282 mg/dL 70 - (Poct) Accu-Check Accu-Check Glucose 09/16/2017 N2N/CCD Import [...] 11.2 g/dL Low 12.0 - 16.0 Accu-Check 09/15/2017 N2N/CCD Import Glucose, 159 mg/dL 70 - 99 Glucose (Poct) Accu-Check Accu-Check 09/15/2017 N2N/CCD Import Glucose, 246 mg/dL 70 - 99 Glucose (Poct) Accu-Check Accu-Check 09/15/2017 N2N/CCD Import Glucose, 487 mg/dL 70 - 99 Glucose (Poct) Accu-Check Staph Aureus 09/08/2017 N2N/CCD Import MRSA by PCR Negative for Negative Screen By PCR MRSA ([facility] Only) Staph aureus by PCR Negative for Staph Aureus Negative Type And Screen 09/08/2017 N2N/CCD Import Abo/RH Type A Pos Antibody Screen Interp Neg Pre-Op 12-Lead EKG ([facility]) 09/08/2017 N2N/CCD Import Atrial rate 105 BPM P Maxwell 68 degrees P-R Interval 142 ms Q-T Interval 344 ms QRS Duration 80 ms QTC Calculation (Bezet) 454 ms R Maxwell 68 degrees T Maxwell 47 degrees Ventricular Rate 105 BPM Prothrombin Time 09/08/2017 N2N/CCD Import Inr 1.08 Inr 0.79 - 1.15 Protime 13.8 sec 11.4 - 14.3 Comprehensive Metabolic 09/08/2017 N2N/CCD Import Albumin 4.4 [...] Abnormal 3.9 - (Poct) (Poct) 6.4 1 [id number] Presumptive Positive Drug confirmation to follow. Presumptive Positive means that the screening method is positive, but the test needs to be run by a confirmatory method before being finalized. REFERENCE VALUE Cutoff: 500 3 REFERENCE VALUE Cutoff: 200 4 REFERENCE VALUE Cutoff: 100 5 Presumptive Positive Drug confirmation to follow. Presumptive Positive means that the screening method is positive, but the test needs to be run by a confirmatory method before being finalized. REFERENCE VALUE Cutoff: 150 6 Presumptive Positive Drug confirmation to follow. Presumptive Positive means that the screening method is positive, but the test needs to be run by a confirmatory method before being finalized. ADDITIONAL INFORMATION This report is intended for use in clinical monitoring or management of patients. It is not intended for use in employment-related testing. 7 REFERENCE VALUE Cutoff: 200 mg/L 8 Tylenol 3 9 Metabolite of codeine REFERENCE VALUE Cutoff: 100 10 Jeni Light, Contin; Also a minor metabolite (10%) of codeine and can be seen in low concentrations (<2,000 ng/mL) with poppy seed ingestion. 11 Metabolite of morphine REFERENCE VALUE Cutoff: 100 12 Metabolite of heroin 13 Lortab, [place], Vicodin; Also a very minor metabolite of codeine and impurity (<1%) of oxycodone. 14 Metabolite of hydrocodone 15 Metabolite of hydrocodone 16 Dilaudid, Exalgo; Also a metabolite of hydrocodone and a minor (<5%) metabolite of morphine. 17 Metabolite of hydromorphone REFERENCE VALUE Cutoff: 100 18 Endocet, Percocet, Oxycontin 19 Metabolite of oxycodone 20 Numorphan, Opana; Also a metabolite of oxycodone. 21 Metabolite of oxymorphone REFERENCE VALUE Cutoff: 100 22 Metabolite of oxymorphone 23 Actiq, Duragesic, Fentora 24 Metabolite of fentanyl 25 Demerol 26 Metabolite of meperidine 27 Narcan 28 Metabolite of naloxone REFERENCE VALUE Cutoff: 100 29 Dolophine 30 Metabolite of methadone 31 Darvon, Darvocet 32 Metabolite of propoxyphene 33 Tradol, Ultram, Ultracet 34 Metabolite of tramadol 35 Nucynta 36 Metabolite of tapentadol 37 Metabolite of tapentadol REFERENCE VALUE Cutoff: 100 38 Buprenex, Suboxone 39 Metabolite of buprenorphine 40 Metabolite of buprenorphine 41 Test detected the presence of oxycodone and several metabolites (noroxycodone, oxymorphone, noroxymorphone, and anpphrjhqsw-3-rokn-glucuronide). Suspect use of oxycodone and/or oxymorphone within [...] Food and Drug Administration. Test Performed by: [facility] - [address] [address] 42 ADDITIONAL INFORMATION This report is intended for [...] Food and Drug Administration. Test Performed by: [facility] - [address] [address] 43 ADDITIONAL INFORMATION This report is intended [...] Food and Drug Administration. Test Performed by: [facility] - [address] [address] 44 REFERENCE VALUE Cutoff: 3.0 45 ADDITIONAL INFORMATION This report is intended for [...] Food and Drug Administration. Test Performed by: [facility] - [facility] [address] [facility], [place] [address] 46 Desirable: <150 Borderline High: 150-199 High: 200-499 Very High: >500 47 Desirable: <200 Borderline High: 200-239 High: >239 48 Low: <40 Desirable: 40-60 High: >60 49 Desirable: <100 Near Optimal: 100-129 Borderline High: 130-159 High: 160-189 Very High: >189 50 Because ethnic data is not always readily [...] 15-29 5 Kidney failure <15 (or dialysis) 51 Normal Range 180 to 914 Indeterminate Range 145 to 180 Deficient Range <145 52 Therapeutic target for the treatment of diabetes mellitus patients is <7% HBA1C, and in selective patients <6.0%. Please refer to [employer] diabetic care guidelines for further information. 53 Cafeteria Supervisor: [id number] Because ethnic data is not always readily [...] 15-29 5 Kidney failure <15 (or dialysis) 55 [id number] REFERENCE VALUE Cutoff: 500 57 REFERENCE VALUE Cutoff: 200 58 REFERENCE VALUE Cutoff: 100 59 REFERENCE VALUE Cutoff: 150 60 Presumptive Positive Drug confirmation to follow. Presumptive Positive means that the screening method is positive, but the test needs to be run by a confirmatory method before being finalized. ADDITIONAL INFORMATION This report is intended for use in clinical monitoring or management of patients. It is not intended for use in employment-related testing. 61 REFERENCE VALUE Cutoff: 200 mg/L 62 Tylenol 3 63 Metabolite of codeine REFERENCE VALUE Cutoff: 100 64 Jeni Light, Contin; Also a minor metabolite (10%) of codeine and can be seen in low concentrations (<2,000 ng/mL) with poppy seed ingestion. 65 Metabolite of morphine REFERENCE VALUE Cutoff: 100 66 Metabolite of heroin 67 Lortab, [place], Vicodin; Also a very minor metabolite of codeine and impurity (<1%) of oxycodone. 68 Metabolite of hydrocodone 69 Metabolite of hydrocodone 70 Dilaudid, Exalgo; Also a metabolite of hydrocodone and a minor (<5%) metabolite of morphine. 71 Metabolite of hydromorphone REFERENCE VALUE Cutoff: 100 72 Endocet, Percocet, Oxycontin 73 Metabolite of oxycodone 74 Numorphan, Opana; Also a metabolite of oxycodone. 75 Metabolite of oxymorphone REFERENCE VALUE Cutoff: 100 76 Metabolite of oxymorphone 77 Actiq, Duragesic, Fentora 78 Metabolite of fentanyl 79 Demerol 80 Metabolite of meperidine 81 Narcan 82 Metabolite of naloxone REFERENCE VALUE Cutoff: 100 83 Dolophine 84 Metabolite of methadone 85 Darvon, Darvocet 86 Metabolite of propoxyphene 87 Tradol, Ultram, Ultracet 88 Metabolite of tramadol 89 Nucynta 90 Metabolite of tapentadol 91 Metabolite of tapentadol REFERENCE VALUE Cutoff: 100 92 Buprenex, Suboxone 93 Metabolite of buprenorphine 94 Metabolite of buprenorphine 95 Test detected the presence of noroxymorphone and hytkbwiemnh-2-qtfq-glucuronide (metabolites of oxymorphone) and noroxycodone (metabolite of [...] by: [facility] [address] [place] [id number] 96 REFERENCE VALUE Cutoff: 3.0 97 ADDITIONAL INFORMATION This report is intended for [...] by: [facility] - [address] [address] 98 Presumptive Positive Drug confirmation to follow. Presumptive Positive means that the screening method is positive, but the test needs to be run by a confirmatory method before being finalized. REFERENCE VALUE Cutoff: 500 99 REFERENCE VALUE Cutoff: 200 100 REFERENCE VALUE Cutoff: 100 101 REFERENCE VALUE Cutoff: 150 102 ADDITIONAL INFORMATION This report is intended for use in clinical monitoring or management of patients. It is not intended for use in employment-related testing. 103 REFERENCE VALUE Cutoff: 200 mg/L 104 Tylenol 3 105 Metabolite of codeine REFERENCE VALUE Cutoff: 100 106 Jeni Light, [place] Contin; Also a minor metabolite (10%) of codeine and can be seen in low concentrations (<2,000 ng/mL) with poppy seed ingestion. 107 Metabolite of morphine REFERENCE VALUE Cutoff: 100 108 Metabolite of heroin 109 Lortab, [place], Vicodin; Also a very minor metabolite of codeine and impurity (<1%) of oxycodone. 110 Metabolite of hydrocodone 111 Metabolite of hydrocodone 112 Dilaudid, Exalgo; Also a metabolite of hydrocodone and a minor (<5%) metabolite of morphine. 113 Metabolite of hydromorphone REFERENCE VALUE Cutoff: 100 114 Endocet, Percocet, Oxycontin 115 Metabolite of oxycodone 116 Numorphan, Opana; Also a metabolite of oxycodone. 117 Metabolite of oxymorphone REFERENCE VALUE Cutoff: 100 118 Metabolite of oxymorphone 119 Actiq, Duragesic, Fentora 120 Metabolite of fentanyl 121 Demerol 122 Metabolite of meperidine 123 Narcan 124 Metabolite of naloxone REFERENCE VALUE Cutoff: 100 125 Dolophine 126 Metabolite of methadone 127 Darvon, Darvocet 128 Metabolite of propoxyphene 129 Tradol, Ultram, Ultracet 130 Metabolite of tramadol 131 Nucynta 132 Metabolite of tapentadol 133 Metabolite of tapentadol REFERENCE VALUE Cutoff: 100 134 Buprenex, Suboxone 135 Metabolite of buprenorphine 136 Metabolite of buprenorphine 137 Test detected the presence of oxycodone and several metabolites (noroxycodone, noroxymorphone, and ntucbomdzyv-0-lblc-glucuronide). Suspect use of oxycodone or possibly oxycodone and oxymorphone within the past three days. ADDITIONAL INFORMATION This test was developed and its performance characteristics determined by [facility] in a manner consistent with CLIA requirements. This test has not been cleared or approved by the U.S. Food and Drug Administration. Test Performed by: [facility] - [facility] [address] [place] [address] 138 ADDITIONAL INFORMATION This report is intended for [...] Food and Drug Administration. Test Performed by: [facility] - 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 M51.16 Intervertebral disc disorders w radiculopathy, lumbar region R41.3 Other amnesia D51.9 Vitamin B12 deficiency anemia, unspecified F17.210 Nicotine dependence, cigarettes, uncomplicated R29.6 Repeated falls Office Visit 09/21/2018 [facility] S32.020D Wedge comprsn 9:30a [facility] Winter MD fx second lum vert, subs for fx w routn heal Office Visit 07/29/2018 [facility] Internal Benjamin Mayo S32.020D Wedge comprsn 11:20a Medicine - Vivi Garcia M.D.,FACP fx second lum vert, subs for fx w routn heal E11.9 Type 2 diabetes mellitus without complications G47.00 Insomnia, unspecified Office 06/27/2018 [facility] S32.020D Wedge comprsn fx Visit 9:00a [facility] Winter MD second lum vert, subs for fx w routn heal Office 04/29/2018 [facility] Meghna Mayo M51.16 Intervertebral Visit 2:20p Tiburcio Garcia M.D.,FACP disc disorders w R radiculopathy, lumbar region S32.020D Wedge comprsn fx second lum vert, subs for fx w routn heal E11.9 Type 2 diabetes mellitus without complications Office Visit 03/18/2018 [facility] Meghna Mayo M51.16 Intervertebral disc 3:00p Tiburcio Garcia M.D.,FACP disorders w Suite R radiculopathy, lumbar region E11.9 Type 2 diabetes mellitus without complications F33.1 Major depressive disorder, recurrent, moderate H93.13 Tinnitus, bilateral Office Visit 02/07/2018 9:00a [facility] Patricia M51.16 Intervertebral disc Medicine - Marker, RPA-C disorders w Suite R radiculopathy, lumbar region F33.1 Major depressive disorder, recurrent, moderate F51.02 Adjustment insomnia Office Visit 12/01/2017 [facility] Benjamin Mayo M51.16 Intervertebral disc 4:00p Tiburcio Garcia M.D.,FACP disorders w Suite R radiculopathy, lumbar region E11.9 Type 2 diabetes mellitus without complications F33.1 Major depressive disorder, recurrent, moderate D64.9 Anemia, unspecified Office 10/14/2017 [facility]Not[facility] Senthil Peterson H69.92 Unspecified Visit 10:00a Tila Trevino M.D. Eustachian tube disorder, left ear Office 09/30/2017 [facility]NotUse [facility] Senthil Peterson E11.9 Type 2 diabetes Visit 3:00p Tila Trevino M.D. mellitus without complications E78.00 Pure hypercholesterolemia, unspecified M16.11 Unilateral primary osteoarthritis, right hip Plan of Treatment Future Appointment(s):01/10/2019 4:00 pm - Fatuma Bui MD at [facility] - [facility]12/09/2018 3:45 pm - Nurse Visit A at [facility] - [facility]05/02/2019 11:00 am - Heri Alberts M.D. at [facility]12/07/2018 - Fatuma Bui, MDR41.3 Other amnesiaComments:your MRI of the brain is [id number] Adjustment disorder with anxietyNew Labs:Drug Abuse 20 Urine, Ordered: 12/07/18Comments:I recommend you seek counseling during these difficult [id number] Intervertebral disc disorders with radiculopathy, lumbar regComments:I am changing your pain treatment regimen to buprenorphineFollow up: 4 ansgpW64.0 Tachycardia, unspecifiedNew Labs:CBC Auto Diff, Ordered: TSH (Thyroid Stim Horm), Ordered: 12/07/18Basic Metabolic Panel, Ordered: 06/15
[2018-12-14] MEDS ORDERED: Amoxicillin/Clavulanate TAB* 875 MG PO ONE (19:48)
--- NOTE | 2018-12-14 19:51 | ED ---
Bite Injury/Animal - HPI Summary HPI Summary: 48-year-old female presents with dog bite to left calf 2 days ago. She states that when the neighbors dogs approached her and ended up biting her left calf. She does not know her last tetanus was. She has been keeping the area clean with alcohol. She has history of diabetes. No rash or spreading redness. No fevers or chills. Has been able to ambulate. Denies any other injury. Unsure about rabies status of the dog. - History of Current Complaint Chief Complaint: EDAnimalBite Stated Complaint: DOG BITE LT LEG PER PT Time Seen by Provider: 12/14/18 19:12 Pain Intensity: 7 - Allergies/Home Medications Allergies/Adverse Reactions: Allergies Allergy/AdvReac Type Severity Reaction Status Date / Time No Known Allergies Allergy Verified 12/14/18 16:36 Home Medications: Home Medications Buprenorphine HCl 8 mg SL Q8H PRN MDD 3 12/14/18 [History Confirmed 12/14/18] DULoxetine DR CAP* [Cymbalta CAP*] 60 mg PO DAILY 12/14/18 [History Confirmed ] Ertugliflozin Pidolate [Steglatro] 5 mg PO DAILY 12/14/18 [History Confirmed ] Gabapentin 800 mg PO TID 12/14/18 [History Confirmed 12/14/18] Oxycodone IR 10 MG(NF) 5 - 10 mg PO Q4H PRN MDD 5 12/14/18 [History Confirmed ] tiZANidine TAB* [Zanaflex TAB*] 4 mg PO TID 12/14/18 [History Confirmed 12/14/18 ] traZODone TAB* [Desyrel TAB*] 50 mg PO BEDTIME 12/14/18 [History Confirmed 12/14] PMH/Surg Hx/FS Hx/Imm Hx Endocrine/Hematology History: Reports: Hx Diabetes - type 2 Denies: Hx Anticoagulant Therapy Cardiovascular History: Denies: Hx Hypertension, Hx Pacemaker/ICD Respiratory History: Denies: Hx Asthma History: Denies: Hx Renal Disease Musculoskeletal History: Reports: Hx Back Problems Sensory History: Denies: Hx Hearing Aid Neurological History: Reports: Other Neuro Impairments/Disorders - WEDGE COMPRESSION FX THIRD LUMBAR Psychiatric History: Denies: Hx Panic Disorder - Surgical History Surgery Procedure, Year, and Place: Right hip fracture-Right Hip Surgery by Dr. Ivory at [facility] in [facility]. 2 C SECTIONS. BREAST AUGMENTATION Infectious Disease History: No Infectious Disease History: Denies: Traveled Outside the [place] in Last 30 Days - Family History Known Family History: Positive: None Negative: Hypertension - Social History Alcohol Use: Occasionally Alcohol Amount: 2 drinks per week Substance Use Type: Reports: None Smoking Status (MU): Heavy Every Day Tobacco Smoker Type: Cigarettes Amount Used/How Often: 1 PPD Have You Smoked in the Last Year: No Review of Systems Negative: Fever Negative: Chest Pain Negative: Shortness Of Breath Positive: Other - bite to left calf All Other Systems Reviewed And Are Negative: Yes Physical Exam Triage Information Reviewed: Yes Vital Signs On Initial Exam: Initial Vitals Temp Pulse Resp BP Pulse Ox 97.1 F 107 16 113/85 100 12/14/18 16:33 12/14/18 16:33 12/14/18 16:33 12/14/18 16:33 12/14/18 16:33 Completion Of Physical Exam Limited Due To: Dementia Appearance: Positive: Well-Appearing Skin: Positive: Warm, Dry, Other - bite jocelyn to left calf, no erythema Head/Face: Positive: Normal Head/Face Inspection Eyes: Positive: Normal, Conjunctiva Clear ENT: Positive: Pharynx normal Respiratory/Lung Sounds: Positive: Clear to Auscultation, Breath Sounds Present Cardiovascular: Positive: Normal, RRR Musculoskeletal: Positive: Strength/ROM Intact - left calf, Other - good pulses Neurological: Positive: Normal Psychiatric: Positive: Normal Diagnostics - Vital Signs Vital Signs Temp Pulse Resp BP Pulse Ox 12/14/18 18:54 97.5 F 101 16 116/96 98 12/14/18 16:33 97.1 F 107 16 113/85 100 - Laboratory Lab Statement: Any lab studies that have been ordered have been reviewed, and results considered in the medical decision making process. Bite Injury Course/Dx - Course Course Of Treatment: 48-year-old female presents with dog bite to left calf 2 days ago. She states that when the neighbors dogs approached her and ended up biting her left calf. She does not know her last tetanus was. She has been keeping the area clean with alcohol. She has history of diabetes. No rash or spreading redness. No fevers or chills. Has been able to ambulate. Denies any other injury. Unsure about rabies status of the dog. On exam has bite otoole to left calf. no sign of infection. Cleaned area. Will place on Augmentin. Gave tetanus. Will give info to health department about dogs so can contact if rabies vaccine is needed. Patient understands agrees with plan. - Diagnoses Differential Diagnosis/HQI/PQRI: Positive: Crush Injury, Laceration, Puncture Provider Diagnosis: Dog bite of left calf Discharge - Sign-Out/Discharge Documenting (check all that apply): Patient Departure Patient Received Moderate/Deep Sedation with Procedure: No - Discharge Plan Condition: Good Disposition: HOME Prescriptions: Amoxicillin/Clavulanate TAB* [Augmentin TAB 875*] 875 mg PO BID #9 tab Patient Education Materials: Animal Bite (ED) Referrals: Fatuma Bui MD [Primary Care Provider] - Additional Instructions: Wash area twice a day with soap and water Take Augmentin twice a day for 5 days Take Tylenol or ibuprofen every 6 hours as needed for pain Ice, elevate Return to ED develop fever, spreading redness, or any new or worsening symptoms - Billing Disposition and Condition Condition: GOOD Disposition: Home
[2018-12-14] MEDS ORDERED: Tetan/Diph/Pertus SYR(Tdap)* 0.5 ML SYR(BOOSTRIX) use SYR IM ONE (19:54)
[2018-12-14 20:22] VITALS: BP 118/86
== END 2018-12-14 20:20 | disposition home or self-care (01) ==
LOC: ED 16:30
DX: S81.852A Open bite, left lower leg, initial encounter (principal); W54.0XXA Bitten by dog, initial encounter; Z23 Encounter for immunization; F17.210 Nicotine dependence, cigarettes, uncomplicated; Z79.899 Other long term (current) drug therapy
CPT/HCPCS: 90471; 90715; 99282; A9270-GY

== ENCOUNTER 2019-05-03 00:38 | Inpatient (IN) | payer OTHER ==
[2019-05-03] MEDS ORDERED: Ondansetron INJ* 2 MG/ML VIAL IV ONE (00:55)
[2019-05-03] MEDS ORDERED: NS 0.9% 1000 ML** 1,000 ML IV ONE ×3 (00:56→04:14)
[2019-05-03] MEDS ORDERED: Ketorolac INJ* 30 MG/ML 1 ML VIAL IV ONE (01:17)
--- NOTE | 2019-05-03 01:26 | ED ---
Complex/Multi-Sys Presentation - HPI Summary HPI Summary: The patient is a 48 y/o F presenting to [facility] accompanied by friend with a chief complaint of nausea, vomiting, headache, and back pain onset this morning. She reports that she has been a brown-appearing emesis causing abdominal pain without relief throughout the day. She denies any diarrhea or fever. Currently, the pain is rated 10/10 in severity. She states that she has only experienced this before when she was in DKA. Her last BG was 120 this morning. The back pain is chronic, and she was on Percocet for it but was switched a month ago. She notes she heather yesterday and today, but she vomiting today after drinking. PMHx: DM, wedge compression in L3. Heavy every day smoker , daily EtOH, no substance use. Medications reviewed. Allergies noted. - History Of Current Complaint Chief Complaint: EDNauseaVomitDiarrh Time Seen by Provider: 05/03/19 00:52 Hx Obtained From: Patient Onset/Duration: Sudden Onset, Lasting Hours, Still Present Timing: Hours Severity Currently: Moderate Severity Initially: Moderate Aggravating Factor(s): nothing Alleviating Factor(s): nothing Associated Signs And Symptoms: Positive: Headache, Nausea, Vomiting, Back Pain. Negative: Diarrhea, Fever - Allergies/Home Medications Allergies/Adverse Reactions: Allergies Allergy/AdvReac Type Severity Reaction Status Date / Time No Known Allergies Allergy Verified 12/14/18 16:36 PMH/Surg Hx/FS Hx/Imm Hx Endocrine/Hematology History: Reports: Hx Diabetes - type 2 Denies: Hx Anticoagulant Therapy Cardiovascular History: Denies: Hx Hypertension, Hx Pacemaker/ICD Respiratory History: Denies: Hx Asthma History: Denies: Hx Renal Disease Musculoskeletal History: Reports: Hx Back Problems Sensory History: Denies: Hx Hearing Aid Neurological History: Reports: Other Neuro Impairments/Disorders - WEDGE COMPRESSION FX THIRD LUMBAR Psychiatric History: Denies: Hx Panic Disorder - Surgical History Surgical History: Yes Surgery Procedure, Year, and Place: Right hip fracture-Right Hip Surgery by Dr. Ivory at [facility] in [facility]. 2 C SECTIONS. BREAST AUGMENTATION Infectious Disease History: No Infectious Disease History: Denies: Traveled Outside the [place] in Last 30 Days - Family History Known Family History: Negative: Hypertension, Diabetes - Social History Alcohol Use: Daily Alcohol Amount: 1-5 daily Hx Substance Use: No Substance Use Type: Reports: None Hx Tobacco Use: Yes Smoking Status (MU): Heavy Every Day Tobacco Smoker Type: Cigarettes Amount Used/How Often: 1 PPD Have You Smoked in the Last Year: No Review of Systems - ROS Summary Review of Systems Summary: Home Medications Medication Instructions Recorded Confirmed Type Cyclobenzaprine TAB* [Flexeril 10 1 tab PO DAILY 05/21/17 12/14/18 History MG TAB*] Metformin HCl 1,000 mg PO BID 08/18/17 12/14/18 History Amoxicillin/Clavulanate TAB* 875 mg PO BID #9 tab 12/14/18 Rx [Augmentin TAB 875*] Buprenorphine HCl 8 mg SL Q8H PRN MDD 3 12/14/18 12/14/[address] CAP* [Cymbalta CAP*] 60 mg PO DAILY 12/14/18 12/14/18 History Ertugliflozin Pidolate [Steglatro] 5 mg PO DAILY 12/14/18 12/14/18 History Gabapentin 800 mg PO TID 12/14/18 12/14/18 History Oxycodone IR 10 MG(NF) 5 - 10 mg PO Q4H PRN MDD 5 12/14/18 12/14/18 History tiZANidine TAB* [Zanaflex TAB*] 4 mg PO TID 12/14/18 12/14/18 History traZODone TAB* [Desyrel TAB*] 50 mg PO BEDTIME 12/14/18 12/14/18 History Negative: Fever Positive: Abdominal Pain - with vomiting, Vomiting, Nausea. Negative: Diarrhea Positive: Other - low back pain Positive: Headache All Other Systems Reviewed And Are Negative: Yes Physical Exam - Summary Physical Exam Summary: General: Well-developed, Well-nourished female. Appears mildly ill. Moderate acute distress. Vomiting actively. Mildly agitated. HEENT: Normocephalic, Atraumatic. Eyes: Conjuctiva normal, PERRL. Ears: TMs within normal limits. Nares: (-) discharge, (-) erythema. Oropharynx: Clear, mucous membranes moist, (-) exudates. Neck: Soft, FROM, (-) lymphadenopathy, (-) thyromegaly, (-) JVD. Cardiovascular: Normal sinus rhythm, (-) murmur. Lungs: Clear to auscultation bilaterally (-) wheezes, (-) rales, (-) rhonchi. Abdomen: Soft, non-tender, non-distended, (-) organomegaly, normal bowel sounds. Back: (-) CVA tenderness Extremities: No edema. Skin: Warm, dry, (-) rash. Neuro: Alert and oriented x3, no focal deficits. Psychiatric: Mood normal, affect normal. Triage Information Reviewed: Yes Vital Signs On Initial Exam: Initial Vitals Temp Pulse Resp BP Pulse Ox 98.6 F 124 22 148/103 99 05/03/19 00:41 05/03/19 00:41 05/03/19 00:41 05/03/19 00:41 05/03/19 00:41 Vital Signs Reviewed: Yes Procedures - Sedation Patient Received Moderate/Deep Sedation with Procedure: No Diagnostics - Vital Signs Vital Signs Temp Pulse Resp BP Pulse Ox 05/03/19 00:41 98.6 F 124 22 148/103 99 - Laboratory Result Diagrams: 05/03/19 02:19 05/03/19 02:19 Lab Statement: Any lab studies that have been ordered have been reviewed, and results considered in the medical decision making process. Re-Evaluation - Re-Evaluation First Eval Re-Evaluation Time: 04:15 Change: Unchanged Comment: We discussed all results and plan for admission. Complex Multi-Symp Course/Dx Course Of Treatment: 48-year-old female with abdominal pain and vomiting since this morning. Patient states she has a history of DKA but does not take insulin. Patient is mildly ill-appearing upon arrival. Workup demonstrates significant acidosis. Patient is given extensive fluids and then insulin. Referred to hospitalist for admission - Diagnoses Provider Diagnoses: Vomiting, Diabetes, Acidosis - Physician Notifications Discussed Care Of Patient With: Alexey Machado - hospitalist Time Discussed With Above Provider: 04:13 Instructed by Provider To: Admit As Observation - I discussed the patient's case with Dr. Machado, who accepts the patient for admission. Discharge ED - Sign-Out/Discharge Documenting (check all that apply): Patient Departure - Patient accepted for admission by Dr. Machado. - Discharge Plan Condition: Stable Disposition: ADMITTED TO [facility] - Attestation Statements Document Initiated by Scribe: Yes Documenting Scribe: Yulisa Perdue Provider For Whom Scribe is Documenting (Include Credential): Dr. Poornima Ashford MD Scribe Attestation: Yulisa Acosta, scribed for Dr. Poornima Ashford MD on 05/03/19 at 0544. Status of Scribe Document: Ready
--- OUTSIDE RECORDS SUMMARY | 2019-05-03 01:50 | XMS REPORT | Continuity of Care Document ---
:1970 External Reference #:[id number] Author Name Fatuma Bui MD (transmitted by agent of provider Bouchra Sahu) Address [address] [place] [address] Problems Active Problems Provider Date Type 2 [...] (10-19 Benjamin Garcia M.D.,FACP Onset: 2017 cigs/day) Social History Type Date Description Comments Sex Unknown Tobacco Use Start: Unknown current cigarette rolls her own, smoker about 15 a day Smoking Status Reviewed: 03/20/19 current cigarette rolls her own, smoker about 15 a day ETOH Use 04/29/2018 Occasionally consumes alcohol Tobacco Use Start: Unknown Heavy tobacco smoker 1 ppd; began age 11 (more than 10 cigarettes/day) Recreational Drug Use Denies Drug Use Exercise Type/Frequency Does not exercise Allergies, Adverse Reactions, Alerts Active Allergies Reaction Severity Comments Date Buprenorphine Hallucinations 01/14/2019 Inactive Allergies NKDA 09/30/2017 Medications Active Medications SIG Qnty Indications Ordering Date Provider Cyanocobalamin 1 sublingual every 90tabs D51.9 Fatumatobias JallohBui, 03/20/2019 2500mcg day MD Tablets Sub Buprenorphine HCL 1 sl every 8 hours 90tabs Fatuma Bui, 02/08/2019 8mg as needed for pain MD Tablets Sub Fentanyl apply one patch once 10units M51.16 Fatumatobias Christensene, 01/10/2019 25mcg/HR every 3 days MD Patches 72HR Cyanocobalamin one intramuscular 30ml D51.9 Fatumatobias Bui, 10/13/2018 weekly x 4 MD 1000mcg/ML Solution Trazodone HCL 1/2-1 tablet at 30tabs Fatuma Ramya, 07/29/2018 50mg bedtime as needed MD Tablets Atorvastatin Calcium take 1 tablet by 90tabs Benjamin Mayo 04/29/2018 mouth at bedtime Radha 10mg Tablets Sarina,FACP Tizanidine HCL 1 three times a day 30tabs Fatuma Bui, 03/31/2018 4mg as needed MD Tablets Duloxetine HCL take 1 capsule by 30caps F33.1 Fatuma Bui, 03/18/2018 60mg mouth every morning MD Reinaldo Brandon 1 by mouth every day 90tabs Fatuma Bui, 03/18/2018 5mg Tablets MD Metformin HCL ER Take 2 Tablets By 120tabs Fatuma Bui, 500mg Mouth Every Morning MD Tablets ER 24HR And Take 2 Tablets By Mouth Every Evening Gabapentin Take Two Capsules By 180caps Fatuma Bui, 400mg Mouth Three Times A MD Capsules Day History Medications Buprenorphine HCL 1 sl every 8 90tabs Fatuma Bui MD 12/07/2018 - 8mg Tablets hours as needed 01/14/2019 Sub for pain Medications Administered in Office Medication SIG Qnty Indications Ordering Provider Date B-12 Injection Fatuma Bui MD 01/10/2019 Injection B-12 Injection Nurse Visit A 01/02/2019 Injection B-12 Injection Nurse Visit A 12/26/2018 Injection Vitamin B12 Pt Provided Vac Nurse Visit A 12/09/2018 Injection Vitamin B12 Pt Provided Vac Nurse Visit A 12/02/2018 Injection B-12 Injection Nurse Visit A 11/25/2018 Injection B-12 Injection Fatuma Bui MD 10/13/2018 Injection Immunizations Description No Information Available Vital Signs Date Vital Result Comment 03/20/2019 10:00am Height 62.5 inches 5'2.50" Weight 141.00 lb Heart Rate 120 /min BP Systolic 130 mmHg BP Diastolic 86 mmHg Body Temperature 98.2 F O2 % BldC Oximetry 98 % BMI (Body Mass Index) 25.4 kg/m2 01/10/2019 4:35pm Height 62.5 inches 5'2.50" Weight 147.00 lb Heart Rate 115 /min BP Systolic 120 mmHg BP Diastolic 80 mmHg Body Temperature 97.7 F O2 % BldC Oximetry 98 % BMI (Body Mass Index) 26.5 kg/m2 Results Test Date Facility Test Result H/L Range Note Laboratory test 03/20/2019 [facility] Cytology <pending> finding [address] [place] [address] [phone] Drug Abuse 20 01/10/2019 [facility] Urine Amphetamine Negative [address] ng/mL [place], [place] [id number] [phone] Urine Barbiturates Negative ng/mL 2 Urine Benzodiazepines Negative ng/mL 3 Urine Cocaine Negative ng/mL 4 Urine Phencyclidine Negative ng/mL Cutoff: 25 Urine Tetrahydrocannabinol Negative ng/mL Cutoff: 50 5 Creatinine, Urine 35.6 mg/dL Specific [place] 1.013 pH 6.1 Oxidants Negative 6 Adulterants Comment Normal Codeine, Ur Not Detected ng/mL Cutoff: 25 7 Bfnbcku-9-bpqs-glucuronide, Ur Not Detected ng/mL 8 Morphine, Ur Not Detected ng/mL Cutoff: 25 9 Kkeeegdi-1-aiou-glucuronide, U Not Detected ng/mL 10 6-monoacetylmorphine, Ur Not Detected ng/mL Cutoff: 25 11 Hydrocodone, Ur Not Detected ng/mL Cutoff: 25 12 Norhydrocodone, Ur Not Detected ng/mL Cutoff: 25 13 Dihydrocodeine, Ur Not Detected ng/mL Cutoff: 25 14 Hydromorphone, Ur Not Detected ng/mL Cutoff: 25 15 Ohydhaxtmjhsx5rdzhajvcyxyukba Not Detected ng/mL 16 Oxycodone, Ur Not Detected ng/mL Cutoff: 25 17 Noroxycodone, Ur Not Detected ng/mL Cutoff: 25 18 Oxymorphone, Ur Not Detected ng/mL Cutoff: 25 19 Cgtxsiecrbx-0-wjsy-glucuronide Not Detected ng/mL 20 Noroxymorphone, Ur Not Detected ng/mL Cutoff: 25 21 Fentanyl, Ur Not Detected ng/mL Cutoff: 2 22 Norfentanyl, Ur Not Detected ng/mL Cutoff: 2 23 Meperidine, Ur Not Detected ng/mL Cutoff: 25 24 Normeperidine, Ur Not Detected ng/mL Cutoff: 25 25 Naloxone, Ur Not Detected ng/mL Cutoff: 25 26 Szxghavw-6-ptvw-glucuronide, U Not Detected ng/mL 27 Methadone, Ur Not Detected ng/mL Cutoff: 25 28 Eddp, Ur Not Detected ng/mL Cutoff: 25 29 Propoxyphene, Ur Not Detected ng/mL Cutoff: 25 30 Norpropoxyphene, Ur Not Detected ng/mL Cutoff: 25 31 Tramadol, Ur Not Detected ng/mL Cutoff: 25 32 O-desmethyltramadol, Ur Not Detected ng/mL Cutoff: 25 33 Tapentadol, Ur Not Detected ng/mL Cutoff: 25 34 N-desmethyltapentadol, Ur Not Detected ng/mL Cutoff: 50 35 Qbfvkrnqrc-rxua-kyguvaawxrf, U Not Detected ng/mL 36 Buprenorphine, Ur Present ng/mL Abnormal Cutoff: 5 37 Norbuprenorphine, Ur Present ng/mL Abnormal Cutoff: 5 38 Norbuprenorphine glucuronide Present ng/mL Abnormal Cutoff: 20 39 Opioid Interpretation See Comment 40 Laboratory test 01/10/[address] [facility] Hemoglobin A1c 6.4 5-7 finding Drug Abuse 20 12/08/2018 [facility] Urine Amphetamine Negative ng/mL [address] [place] [address] [phone] Urine Barbiturates Negative ng/mL 42 Urine Benzodiazepines Negative ng/mL 43 Urine Cocaine Negative ng/mL 44 Urine Phencyclidine Negative ng/mL Cutoff: 25 Urine Tetrahydrocannabinol Negative ng/mL Cutoff: 50 45 Creatinine, Urine 27.6 mg/dL Specific [place] 1.004 pH 5.8 Oxidants Negative 46 Adulterants Comment Normal Codeine, Ur Not Detected ng/mL Cutoff: 25 47 Ouhplrv-6-zdot-glucuronide, Ur Not Detected ng/mL 48 Morphine, Ur Not Detected ng/mL Cutoff: 25 49 Ehunlfce-4-xrir-glucuronide, U Not Detected ng/mL 50 6-monoacetylmorphine, Ur Not Detected ng/mL Cutoff: 25 51 Hydrocodone, Ur Not Detected ng/mL Cutoff: 25 52 Norhydrocodone, Ur Not Detected ng/mL Cutoff: 25 53 Dihydrocodeine, Ur Not Detected ng/mL Cutoff: 25 54 Hydromorphone, Ur Not Detected ng/mL Cutoff: 25 55 Hffgiooaysiyv5zisjijhjrcbcaqi Not Detected ng/mL 56 Oxycodone, Ur Not Detected ng/mL Cutoff: 25 57 Noroxycodone, Ur Not Detected ng/mL Cutoff: 25 58 Oxymorphone, Ur Not Detected ng/mL Cutoff: 25 59 Grimgmexbfr-5-gpli-glucuronide Not Detected ng/mL 60 Noroxymorphone, Ur Not Detected ng/mL Cutoff: 25 61 Fentanyl, Ur Present ng/mL Abnormal Cutoff: 2 62 Norfentanyl, Ur Present ng/mL Abnormal Cutoff: 2 63 Meperidine, Ur Not Detected ng/mL Cutoff: 25 64 Normeperidine, Ur Not Detected ng/mL Cutoff: 25 65 Naloxone, Ur Not Detected ng/mL Cutoff: 25 66 Iawqtxnw-1-bqur-glucuronide, U Not Detected ng/mL 67 Methadone, Ur Not Detected ng/mL Cutoff: 25 68 Eddp, Ur Not Detected ng/mL Cutoff: 25 69 Propoxyphene, Ur Not Detected ng/mL Cutoff: 25 70 Norpropoxyphene, Ur Not Detected ng/mL Cutoff: 25 71 Tramadol, Ur Not Detected ng/mL Cutoff: 25 72 O-desmethyltramadol, Ur Not Detected ng/mL Cutoff: 25 73 Tapentadol, Ur Not Detected ng/mL Cutoff: 25 74 N-desmethyltapentadol, Ur Not Detected ng/mL Cutoff: 50 75 Ymljvspjzq-kkan-ubfchoqszlm, U Not Detected ng/mL 76 Buprenorphine, Ur Not Detected ng/mL Cutoff: 5 77 Norbuprenorphine, Ur Not Detected ng/mL Cutoff: 5 78 Norbuprenorphine glucuronide Not Detected ng/mL Cutoff: 20 79 Opioid Interpretation See Comment 80 CBC Auto 12/07/2018 [facility] White Blood 7.2 10^3/uL Normal 3.5-10.[address] [place] [address] [phone] Red Blood Count 4.37 10^6/uL Normal 3.70-4.87 Hemoglobin 13.9 g/dL Normal 12.0-16.0 Hematocrit 43 % Normal 35-47 Mean Corpuscular Volume 98 fL High 80-97 Mean Corpuscular Hemoglobin 32 pg High 27-31 Mean Corpuscular HGB Conc 33 g/dL Normal 31-36 Red Cell Distribution Width 16 % High 10-15 Platelet Count 303 10^3/uL Normal 150-450 Mean Platelet Volume 8.6 fL Normal 7.4-10.4 Abs Neutrophils 4.2 10^3/uL Normal 1.5-7.7 Abs Lymphocytes 2.4 10^3/uL Normal 1.0-4.8 Abs Monocytes 0.5 10^3/uL Normal 0-0.8 Abs Eosinophils 0.0 10^3/uL Normal 0-0.6 Abs Basophils 0.1 10^3/uL Normal 0-0.2 Abs Nucleated RBC 0.0 10^3/uL Granulocyte % 58.0 % Lymphocyte % 33.7 % Monocyte % 6.7 % Eosinophil % 0.3 % Basophil % 1.3 % Nucleated Red Blood Cells % 0.0 Laboratory 12/07/2018 [facility] TSH (Thyroid 0.54 Normal 0.34 -5.[address] Stim Horm) mcIU/[place] [address] [phone] Basic 12/07/2018 [facility] Sodium 142 mmol/L Normal 135-[address] [place] [address] [phone] Potassium 5.0 mmol/L Normal 3.5-5.0 Chloride 106 mmol/L Normal 101-111 Co2 Carbon Dioxide 24 mmol/L Normal 22-32 Anion Gap 12 mmol/L High 2-11 Glucose 324 mg/dL High 70-100 Blood Urea Nitrogen 7 mg/dL Normal 6-24 Creatinine 0.66 mg/dL Normal 0.51-0.95 BUN/Creatinine Ratio 10.6 Normal 8-20 Calcium 10.3 mg/dL Normal 8.6-10.3 Egfr Non- 95.2 >60 Egfr 115.2 >60 81 Drug 10/13/2018 [facility] Urine Presumptive Abnormal 82, 83 Abuse [address] Amphetamine Posi <SEE NOTE> [place] [address] ng/mL [phone] Urine Barbiturates Negative ng/mL 84 Urine Benzodiazepines Negative ng/mL 85 Urine Cocaine Presumptive Posi <SEE NOTE> Abnormal 86 ng/mL Urine Phencyclidine Negative ng/mL Cutoff: 25 Urine Tetrahydrocannabinol Presumptive Posi <SEE NOTE> Abnormal Cutoff: 50 87 ng/mL Creatinine, Urine 235.9 mg/dL Specific [place] 1.023 pH 5.5 Oxidants Negative 88 Adulterants Comment Normal Codeine, Ur Not Detected ng/mL Cutoff: 25 89 Ypaclos-8-wuhn-glucuronide, Ur Not Detected ng/mL 90 Morphine, Ur Not Detected ng/mL Cutoff: 25 91 Nnxmhzuu-0-bxrw-glucuronide, U Not Detected ng/mL 92 6-monoacetylmorphine, Ur Not Detected ng/mL Cutoff: 25 93 Hydrocodone, Ur Not Detected ng/mL Cutoff: 25 94 Norhydrocodone, Ur Not Detected ng/mL Cutoff: 25 95 Dihydrocodeine, Ur Not Detected ng/mL Cutoff: 25 96 Hydromorphone, Ur Not Detected ng/mL Cutoff: 25 97 Ilysbhnqqwkcx5qbkvifbqdvtbqvh Not Detected ng/mL 98 Oxycodone, Ur Present ng/mL Abnormal Cutoff: 25 99 Noroxycodone, Ur Present ng/mL Abnormal Cutoff: 25 100 Oxymorphone, Ur Present ng/mL Abnormal Cutoff: 25 101 Xewwuprdsnc-9-jxxv-glucuronide Present ng/mL Abnormal 102 Noroxymorphone, Ur Present ng/mL Abnormal Cutoff: 25 103 Fentanyl, Ur Present ng/mL Abnormal Cutoff: 2 104 Norfentanyl, Ur Present ng/mL Abnormal Cutoff: 2 105 Meperidine, Ur Not Detected ng/mL Cutoff: 25 106 Normeperidine, Ur Not Detected ng/mL Cutoff: 25 107 Naloxone, Ur Not Detected ng/mL Cutoff: 25 108 Beulhhkr-5-qduk-glucuronide, U Not Detected ng/mL 109 Methadone, Ur Not Detected ng/mL Cutoff: 25 110 Eddp, Ur Not Detected ng/mL Cutoff: 25 111 Propoxyphene, Ur Not Detected ng/mL Cutoff: 25 112 Norpropoxyphene, Ur Not Detected ng/mL Cutoff: 25 113 Tramadol, Ur Not Detected ng/mL Cutoff: 25 114 O-desmethyltramadol, Ur Not Detected ng/mL Cutoff: 25 115 Tapentadol, Ur Not Detected ng/mL Cutoff: 25 116 N-desmethyltapentadol, Ur Not Detected ng/mL Cutoff: 50 117 Iypbzbmtke-vuua-hubbrmdltdu, U Not Detected ng/mL 118 Buprenorphine, Ur Not Detected ng/mL Cutoff: 5 119 Norbuprenorphine, Ur Not Detected ng/mL Cutoff: 5 120 Norbuprenorphine glucuronide Not Detected ng/mL Cutoff: 20 121 Opioid Interpretation See Comment 122 Urine 10/13/2018 [facility] Urine Negative Cutoff: [address] Amphetamine by ng/[place] [address] GC/MS [phone] Urine Methamphetamine by GC/MS Negative ng/mL Cutoff: 25 Phentermine-by GC/MS Negative ng/mL Cutoff: 25 Pseudoephedrine/Ephedr GC/MS Negative ng/mL Cutoff: 25 Mda(Ecstacy metabolite) GC/MS Negative ng/mL Cutoff: 25 Mdma(Ecstacy)-by GC/MS Negative ng/mL Cutoff: 25 Urine Amphetamines Interp Negative. 123 Urine Cocaine 10/13/2018 [facility] Urine Negative Cutoff: [address] Cocaine ng/[place] [address] Confirm [phone] (GC/MS) Ur Benzoylecgonine Confirm 200 ng/mL Cutoff: 50 Urine Cocaine Interpretation Positive. 124 THC Confirmation 10/13/2018 [facility] Urine Carboxy 25 ng/mL [address] [place] [address] [phone] Urine THC Interpretation Positive. 126 Laboratory test finding 10/13/[address] [facility] Hemoglobin A1c 7.2 High 5 -7 1 REFERENCE VALUE Cutoff: 500 2 REFERENCE VALUE Cutoff: 200 3 REFERENCE VALUE Cutoff: 100 4 REFERENCE VALUE Cutoff: 150 5 ADDITIONAL INFORMATION This report is intended for use in clinical monitoring or management of patients. It is not intended for use in employment-related testing. 6 REFERENCE VALUE Cutoff: 200 mg/L 7 Tylenol 3 8 Metabolite of codeine REFERENCE VALUE Cutoff: 100 9 Jeni Light, Contin; Also a minor metabolite (10%) of codeine and can be seen in low concentrations (<2,000 ng/mL) with poppy seed ingestion. 10 Metabolite of morphine REFERENCE VALUE Cutoff: 100 11 Metabolite of heroin 12 Lortab, [place], Vicodin; Also a very minor metabolite of codeine and impurity (<1%) of oxycodone. 13 Metabolite of hydrocodone 14 Metabolite of hydrocodone 15 Dilaudid, Exalgo; Also a metabolite of hydrocodone and a minor (<5%) metabolite of morphine. 16 Metabolite of hydromorphone REFERENCE VALUE Cutoff: 100 17 Endocet, Percocet, Oxycontin 18 Metabolite of oxycodone 19 Numorphan, Opana; Also a metabolite of oxycodone. 20 Metabolite of oxymorphone REFERENCE VALUE Cutoff: 100 21 Metabolite of oxymorphone 22 Actiq, Duragesic, Fentora 23 Metabolite of fentanyl 24 Demerol 25 Metabolite of meperidine 26 Narcan 27 Metabolite of naloxone REFERENCE VALUE Cutoff: 100 28 Dolophine 29 Metabolite of methadone 30 Darvon, Darvocet 31 Metabolite of propoxyphene 32 Tradol, Ultram, Ultracet 33 Metabolite of tramadol 34 Nucynta 35 Metabolite of tapentadol 36 Metabolite of tapentadol REFERENCE VALUE Cutoff: 100 37 Buprenex, Suboxone 38 Metabolite of buprenorphine 39 Metabolite of buprenorphine 40 Test detected the presence of buprenorphine and its metabolites (norbuprenorphine, norbuprenorphine glucuronide). Suspect use of buprenorphine within the past three days. ADDITIONAL INFORMATION This test was developed and its performance characteristics determined by [facility] in a manner consistent with CLIA requirements. This test has not been cleared or approved by the U.S. Food and Drug Administration. Test Performed by: [facility] [address] [place] [address] 41 REFERENCE VALUE Cutoff: 500 42 REFERENCE VALUE Cutoff: 200 43 REFERENCE VALUE Cutoff: 100 44 REFERENCE VALUE Cutoff: 150 45 ADDITIONAL INFORMATION This report is intended for use in clinical monitoring or management of patients. It is not intended for use in employment-related testing. 46 REFERENCE VALUE Cutoff: 200 mg/L 47 Tylenol 3 48 Metabolite of codeine REFERENCE VALUE Cutoff: 100 49 Jeni Light, Contin; Also a minor metabolite (10%) of codeine and can be seen in low concentrations (<2,000 ng/mL) with poppy seed ingestion. 50 Metabolite of morphine REFERENCE VALUE Cutoff: 100 51 Metabolite of heroin 52 Lortab, Morland, Vicodin; Also a very minor metabolite of codeine and impurity (<1%) of oxycodone. 53 Metabolite of hydrocodone 54 Metabolite of hydrocodone 55 Dilaudid, Exalgo; Also a metabolite of hydrocodone and a minor (<5%) metabolite of morphine. 56 Metabolite of hydromorphone REFERENCE VALUE Cutoff: 100 57 Endocet, Percocet, Oxycontin 58 Metabolite of oxycodone 59 Numorphan, Opana; Also a metabolite of oxycodone. 60 Metabolite of oxymorphone REFERENCE VALUE Cutoff: 100 61 Metabolite of oxymorphone 62 Actiq, Duragesic, Fentora 63 Metabolite of fentanyl 64 Demerol 65 Metabolite of meperidine 66 Narcan 67 Metabolite of naloxone REFERENCE VALUE Cutoff: 100 68 Dolophine 69 Metabolite of methadone 70 Darvon, Darvocet 71 Metabolite of propoxyphene 72 Tradol, Ultram, Ultracet 73 Metabolite of tramadol 74 Nucynta 75 Metabolite of tapentadol 76 Metabolite of tapentadol REFERENCE VALUE Cutoff: 100 77 Buprenex, Suboxone 78 Metabolite of buprenorphine 79 Metabolite of buprenorphine 80 Test detected the presence of fentanyl and its metabolite (norfentanyl). Suspect use of fentanyl within the past three days. ADDITIONAL INFORMATION This test was developed and its performance characteristics determined by [facility] in a manner consistent with CLIA requirements. This test has not been cleared or approved by the U.S. Food and Drug Administration. Test Performed by: [facility] [address] [place] [address] 81 Because ethnic data is not always readily [...] 15-29 5 Kidney failure <15 (or dialysis) 82 [id number] Presumptive Positive Drug confirmation to follow. Presumptive Positive means that the screening method is positive, but the test needs to be run by a confirmatory method before being finalized. REFERENCE VALUE Cutoff: 500 84 REFERENCE VALUE Cutoff: 200 85 REFERENCE VALUE Cutoff: 100 86 Presumptive Positive Drug confirmation to follow. Presumptive Positive means that the screening method is positive, but the test needs to be run by a confirmatory method before being finalized. REFERENCE VALUE Cutoff: 150 87 Presumptive Positive Drug confirmation to follow. Presumptive Positive means that the screening method is positive, but the test needs to be run by a confirmatory method before being finalized. ADDITIONAL INFORMATION This report is intended for use in clinical monitoring or management of patients. It is not intended for use in employment-related testing. 88 REFERENCE VALUE Cutoff: 200 mg/L 89 Tylenol 3 90 Metabolite of codeine REFERENCE VALUE Cutoff: 100 91 Jeni Light, Contin; Also a minor metabolite (10%) of codeine and can be seen in low concentrations (<2,000 ng/mL) with poppy seed ingestion. 92 Metabolite of morphine REFERENCE VALUE Cutoff: 100 93 Metabolite of heroin 94 Lortab, Mor[place], Vicodin; Also a very minor metabolite of codeine and impurity (<1%) of oxycodone. 95 Metabolite of hydrocodone 96 Metabolite of hydrocodone 97 Dilaudid, Exalgo; Also a metabolite of hydrocodone and a minor (<5%) metabolite of morphine. 98 Metabolite of hydromorphone REFERENCE VALUE Cutoff: 100 99 Endocet, Percocet, Oxycontin 100 Metabolite of oxycodone 101 Numorphan, Opana; Also a metabolite of oxycodone. 102 Metabolite of oxymorphone REFERENCE VALUE Cutoff: 100 103 Metabolite of oxymorphone 104 Actiq, Duragesic, Fentora 105 Metabolite of fentanyl 106 Demerol 107 Metabolite of meperidine 108 Narcan 109 Metabolite of naloxone REFERENCE VALUE Cutoff: 100 110 Dolophine 111 Metabolite of methadone 112 Darvon, Darvocet 113 Metabolite of propoxyphene 114 Tradol, Ultram, Ultracet 115 Metabolite of tramadol 116 Nucynta 117 Metabolite of tapentadol 118 Metabolite of tapentadol REFERENCE VALUE Cutoff: 100 119 Buprenex, Suboxone 120 Metabolite of buprenorphine 121 Metabolite of buprenorphine 122 Test detected the presence of oxycodone and several metabolites (noroxycodone, oxymorphone, noroxymorphone, and erfhcllsdje-1-pwro-glucuronide). Suspect use of oxycodone and/or oxymorphone within the past three days. Test detected the presence of fentanyl and its metabolite (norfentanyl). Suspect use of fentanyl within the past three days. ADDITIONAL INFORMATION This test was developed and its performance characteristics determined by [facility] in a manner consistent with CLIA requirements. This test has not been cleared or approved by the U.S. Food and Drug Administration. Test Performed by: [facility] [place] [address] [place] [address] [place] [address] 123 ADDITIONAL INFORMATION This report is intended for use in clinical monitoring and management of patients. It is not intended for use in employment-related testing. This test was developed and its performance characteristics determined by [facility] in a manner consistent with CLIA requirements. This test has not been cleared or approved by the U.S. Food and Drug Administration. Test Performed by: [facility] [place] [address] [place] [id number] ADDITIONAL INFORMATION This report is intended for use in clinical monitoring and management of patients. It is not intended for use in employment-related testing. This test was developed and its performance characteristics determined by [facility] in a manner consistent with CLIA requirements. This test has not been cleared or approved by the U.S. Food and Drug Administration. Test Performed by: [facility] - [address] [address] 125 REFERENCE VALUE Cutoff: 3.0 126 ADDITIONAL INFORMATION This report is intended for use in clinical monitoring and management of patients. It is not intended for use in employment-related testing. This test was developed and its performance characteristics determined by [facility] in a manner consistent with CLIA requirements. This test has not been cleared or approved by the U.S. Food and Drug Administration. Test Performed by: [facility] - [address] [address] Procedures Date Code Description Status 01/10/2019 31248 Admin Of Inj Completed 01/02/2019 61272 Admin Of Inj Completed 12/26/2018 [id number] Admin Of Inj Completed 12/09/2018 [id number] Admin Of Inj Completed 12/02/2018 [id number] Admin Of Inj Completed 11/25/2018 [id number] Admin Of Inj Completed 10/13/2018 [id number] Admin Of Inj Completed 11/18/2017 [id number] Diabetic Retinal Eye Exam Completed Medical Devices Description No Information Available Encounters Type Date Location Provider Dx Diagnosis Office Visit 01/10/2019 [facility] Ftauma Bui MD M51.16 Intervertebral disc 4:00p Medicine - [facility] disorders w radiculopathy, lumbar region Z79.891 MCC (current) use of opiate analgesic E11.9 Type 2 diabetes mellitus without complications S32.020D Wedge comprsn fx second lum vert, subs for fx w routn heal D51.9 Vitamin B12 deficiency anemia, unspecified Office Visit 12/07/2018 2:20p [facility] Internal Fatuma Bui MD R41.3 Other amnesia Medicine - [facility] F43.22 Adjustment disorder with anxiety M51.16 Intervertebral disc disorders w radiculopathy, lumbar region R00.0 Tachycardia, unspecified Office Visit 10/13/2018 2:00p [facility] Internal Fatuma Bui, E11.9 Type 2 diabetes Medicine - mellitus without [facility]cm[facility] complications Z79.891 MCC (current) use of opiate analgesic M51.16 Intervertebral disc disorders w radiculopathy, lumbar region R41.3 Other amnesia D51.9 Vitamin B12 deficiency anemia, unspecified F17.210 Nicotine dependence, cigarettes, uncomplicated R29.6 Repeated falls Office Visit 09/21/2018 [facility] S32.020D Wedge comprsn 9:30a [facility] MD fx second lum vert, subs for fx w routn heal Assessments Date Code Description Provider 03/20/2019 Z01.419 Encounter for gynecological examination Fatuma Bui MD (general) (routine) without abnormal findings 03/20/2019 R00.0 Tachycardia, unspecified Fatuma Bui MD 03/20/2019 F17.210 Nicotine dependence, cigarettes, Fatuma Bui MD uncomplicated 03/20/2019 D51.9 Vitamin B12 deficiency anemia, Fatuma Bui MD unspecified 03/20/2019 G89.4 Chronic pain syndrome Fatuma Bui MD 03/20/2019 M51.16 Intervertebral disc disorders with Fatuma Bui MD radiculopathy, lumbar reg 03/20/2019 M16.11 Unilateral primary osteoarthritis, right Fatuma Bui MD hip 01/10/2019 M51.16 Intervertebral disc disorders with Fatuma Biu MD radiculopathy, lumbar reg 01/10/2019 Z79.891 break out man (current) use of opiate Fatuma Bui MD analgesic 01/10/2019 E11.9 Type 2 diabetes mellitus without Fatuma Bui MD complications 01/10/2019 S32.020D Wedge compression fracture of second Fatuma Bui MD lumbar vertebra, subseq 01/10/2019 D51.9 Vitamin B12 deficiency anemia, Fatuma Bui MD unspecified 01/02/2019 D51.9 Vitamin B12 deficiency anemia, Nurse Visit A unspecified 12/26/2018 D51.9 Vitamin B12 deficiency anemia, Nurse Visit A unspecified 12/09/2018 D51.9 Vitamin B12 deficiency anemia, Nurse Visit A unspecified 12/07/2018 R41.3 Other esia Fatuma Bui MD 12/07/2018 F43.22 Adjustment disorder with anxiety Fatuma Bui MD 12/07/2018 M51.16 Intervertebral disc disorders with Fatuma Bui MD radiculopathy, lumbar reg 12/07/2018 R00.0 Tachycardia, unspecified Fatuma Bui MD 12/02/2018 D51.9 Vitamin B12 deficiency anemia, Nurse Visit A unspecified 11/25/2018 D51.9 Vitamin B12 deficiency anemia, Nurse Visit A unspecified 10/13/2018 E11.9 Type 2 diabetes mellitus without Fatuma Bui MD complications 10/13/2018 Z79.891 break out man (current) use of opiate Fatuma Bui MD analgesic 10/13/2018 M51.16 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 - [facility]05/02/2019 11:00 am - Heri Alberts M.D. at [facility]03/20/2019 - Fatuma Bui MDZ01.419 Encounter for gynecological examination (general) (routine) without abnormal lvborptmV67.0 Tachycardia, unspecifiedReferral:Raj Jonas MD, Cardiovsclr SnxsfqnQ65.210 Nicotine dependence, cigarettes, uncomplicatedComments:It is imperative that you quit smoking. There are several medications that can help and numerous organizations that can offer you support. [facility] has a quit line you may call at 1 -[phone]. Please give the office a call if you would like some assistance.D51.9 Vitamin B12 deficiency anemia, unspecifiedNew Medication:Cyanocobalamin 2500 mcg - 1 sublingual every dayG89.4 Chronic pain syndromeComments:Please schedule an appt to review disability papers you dropped off in detail, they cannot be completed todayFollow up:1 moM51.16 Intervertebral disc disorders with radiculopathy, lumbar regNew Therapy: Physical FvoypvcT05.11 Unilateral primary osteoarthritis, right hipNew Therapy: Physical Therapy Functional Status Description No Information Available Mental Status Description No Information Available Referrals Refer to Dr Reason for Referral Status Appt Date Raj Jonas MD pt with long standing unexplained tachycardia, Sent labs wnl [address] [place] [address] [phone] Rosalio Jacobsen DO pt with chronic low back pain 2ry to DDD Patient Declined and wedge compression of spine Dr Jacobsen office Declined [address] [place] [address] [phone] Heri Alberts MD pt with past head trauma and intracranial bleed in Sent 05/02/20192008, now reporting poor short term memory, forgetting meds and trouble concentrating and focusing [address] [place], [place] [id number] [phone] Romain Paulson MD please evaluate pt with worsening back pain Sent requiring increase in medications, with no changes in MRI to explain increased pain. She had fall off of a four story building in 2008 with L2 fracture. resent [address] [place] [address] [phone]
[2019-05-03 02:49] LABS: ABS Basophils 0.1 10^3/ul (0-0.2); ABS Lymphocytes 1.1 10^3/ul (1.0-4.8); ABS Monocytes 0.8 10^3/ul (0-0.8); ABS Neutrophils 10.4 10^3/ul (1.5-7.7); Hematocrit 42 % (35-47); Lymphocyte % 8.8 %; Mean Corpuscular HGB Conc 31 g/dL (31-36); Mean Corpuscular Hemoglobin 32 pg (27-31); Mean Corpuscular Volume 103 fL (80-97); Nucleated Red Blood Cells % 0.1; Platelet Count 235 10^3/uL (150-450); Red Cell Distribution Width 17 % (10-15); White Blood Count 12.3 10^3/uL (3.5-10.8)
[2019-05-03 03:02] LABS: ALT 17 U/L (7-52); Albumin 4.3 g/dL (3.2-5.2); Albumin/Globulin Ratio 1.2 (1-3); Alkaline Phosphatase 101 U/L (34-104); BUN/Creatinine Ratio 34.3 (8-20); Blood Urea Nitrogen 36 mg/dL (6-24); C Reactive Protein < 1.00 mg/L (<8.01); Calcium 8.6 mg/dL (8.6-10.3); Chloride 93 mmol/L (101-111); EGFR African American 67.4 (>60); EGFR Non-African American 55.7 (>60); Globulin 3.7 g/dL (2-4); Glucose 272 mg/dL (70-100); Sodium 135 mmol/L (135-145)
[2019-05-03 03:09] LABS: HCG Pregnancy 0.87 mIU/mL
[2019-05-03 03:13] LABS: Alcohol < 10 mg/dL (<10)
[2019-05-03 03:37] LABS: Anion Gap 31 mmol/L (2-11); CO2 Carbon Dioxide 11 mmol/L (22-32)
[2019-05-03 03:37] LABS: Urine Appearance Clear; Urine Bacteria Absent (Absent); Urine Bilirubin Negative (Negative); Urine Blood 1+ (Negative); Urine Color Yellow; Urine Glucose 2+(150 mg/dL) (Negative); Urine Ketones 2+ (Negative); Urine Nitrite Negative (Negative); Urine Protein 2+(100 mg/dL) (Negative); Urine Red Blood Cell 1+(3-5/hpf) (Absent); Urine Specific Gravity 1.014 (1.010-1.030); Urine Squamous Epithelial Cell Present (Absent); Urine Urobilinogen Negative (Negative); Urine White Blood Cell Absent (Absent)
[2019-05-03 03:38] LABS: AST 27 U/L (13-39)
[2019-05-03 03:49] LABS: Urine Benzodiazepine Screen None Detected (None Detect); Urine Opiates Screen None Detected (None Detect)
[2019-05-03] MEDS ORDERED: Insulin REGULAR(*) 1 UNITS UNIT IV PUSH ONE (04:06)
[2019-05-03] MEDS ORDERED: NS 0.9% 1000 ML** 2,000 ML IV ONE (04:39)
[2019-05-03 04:45] LABS: INR 1.05 (0.82-1.09)
[2019-05-03] MEDS ORDERED: Ondansetron INJ* 2 MG/ML VIAL IV PRN (05:05)
[2019-05-03] MEDS ORDERED: Thiamine INJ* 100 MG/ML 2 ML VIAL IM ONE (05:14)
[2019-05-03] MEDS ORDERED: LORazepam TAB(*) 1 MG PO SCH (06:00)
[2019-05-03] MEDS: NS 0.9% 1000 ML** 1,000 ML IV SCH ×4 (06:26→23:33)
[2019-05-03 06:57] LABS: BUN/Creatinine Ratio 35.1 (8-20); Calcium 8.1 mg/dL (8.6-10.3); EGFR African American 76.6 (>60); EGFR Non-African American 63.3 (>60)
[2019-05-03] MEDS ORDERED: Insulin Infusion 100unit/100mL 100 UNITS/100 ML UNIT IV SCH (07:00)
[2019-05-03 07:19] LABS: Potassium 4.7 mmol/L (3.5-5.0)
[2019-05-03] MEDS: Buprenorphine TAB* 8 MG SL PRN (07:35)
--- NOTE | 2019-05-03 08:05 | HP ---
CC: Dr. Fatuma Bui * ADMISSION HISTORY AND PHYSICAL: DATE OF ADMISSION: 05/03/19 CHIEF COMPLAINT: Nausea and vomiting. HISTORY OF PRESENT ILLNESS: This is a 48-year-old female with past medical history of diabetes, last DKA was in 2014 while she was in [place]; history of chronic low back pain due to L3 compression fracture after she fell off from a 4-story building, history of diabetic neuropathy; dyslipidemia, currently not on any medication; depression; and also chronic alcohol abuse; comes in due to vomiting since yesterday which was accompanied by epigastric pain, but the pain is only during the episodes of her vomiting. She also noted that her sugars were elevated, so she decided to come to the ER. She also complained that her chronic low back pain also worsened after she vomited and she now also has some headache. She otherwise denies any shortness of breath, chest pain, fever, chills, any urinary burning sensation or pain with urination or any change in her urinary habits. Denies any constipation. PAST MEDICAL HISTORY: As mentioned in the HPI: 1. Type 2 diabetes with previous admission for DKA. 2. Chronic low back pain after sustaining a 4-story fall with L3 compression fracture, on narcotics, and also drinks alcohol to numb some of the pain. 3. Diabetic neuropathy, on gabapentin. 4. History of dyslipidemia according to her PCP, but has not been started on any medications. 5. History of depression. 6. Alcohol abuse as mentioned. PAST SURGICAL HISTORY: She has had 2 C-sections, breast augmentation, and a right hip fracture which was repaired. HOME MEDICATIONS: The patient is on: 1. Steglatro 5 mg oral daily. 2. Cymbalta 60 mg oral daily. 3. Flexeril 10 mg oral daily. 4. Buprenorphine 8 mg sublingual every 8 hours p.r.n. 5. Trazodone 50 mg daily at bedtime. 6. Zanaflex 4 mg p.o. t.i.d. 7. Metformin 1000 mg p.o. b.i.d. 8. Gabapentin 800 mg p.o. t.i.d. ALLERGIES: No known drug allergies. FAMILY HISTORY: Father recently at age 91 with a stroke. Mother at age 47 with lung cancer. SOCIAL HISTORY: The patient has been smoking since age 11 and has been consistently smoking at least a pack a day, but stated that she never really exceeded more than a pack. Since 1997, she also been drinking vodka on a daily basis, usually 3 to 4 drinks. She denies any withdrawal. She states that she is able to stay multiple days without any drinking without any withdrawal, without needing any eye door opener. Denies any other drug use, and even when questioned about why she was taking buprenorphine, she states that she is not sure and that her primary care physician prescribed her for pain and depression. She is currently attempting to go back to school and she is originally born here in [place], but moved to [place] and came back to visit her father and stayed subsequently thereafter. She states that her kids would be the surrogate decision makers, but stated to reach her friend, Hever Mix, then get in touch with her kids as she does not have direct phone numbers for the kids. She otherwise wishes to be a full code. REVIEW OF SYSTEMS: A 14-point review of systems did not reveal any new information other than the ones in the HPI. PHYSICAL EXAMINATION GENERAL: The patient is awake, alert, oriented x3, did not appear to be in any acute respiratory distress. VITAL SIGNS: In the ER, BP was noted to be 123/89, heart rate 108, respiration rate 30, saturating 100% on room air, temperature was noted to 99.7 max. HEAD AND NECK EXAMINATION: Atraumatic, normocephalic. Bilateral pupils are reactive. Oral mucosa was dry. Neck supple. No jugular venous distention. LUNGS: Clear to auscultation bilaterally. No wheezing, rhonchi, or rales. HEART: S1, S2 with sinus tachycardia. ABDOMEN: Soft, nontender, nondistended. EXTREMITIES: No cyanosis, clubbing, or edema. LABORATORY DATA: CBC shows minimally elevated white count of 12.3, hemoglobin and hematocrit are stable, MCV elevated at 103, platelet count was normal at 235. Coagulation profile shows normal INR of 1.05. Venous blood gas shows pH of 7.13. Initial comprehensive metabolic panel shows decreased bicarb of 11, BUN elevated at 36, creatinine 1.05, random glucose elevated at 272, lactic acid elevated at 3.7. Serum osmolality was elevated at 319. Urine drug screen was negative and serum alcohol level was less than 10. IMPRESSION: This is a 48-year-old female with a history of diabetes, here due to vomiting, likely secondary to diabetic ketoacidosis. ASSESSMENT AND PLAN: 1. Diabetes with diabetic ketoacidosis. Continue IV hydration and insulin drip protocol and we will hold oral medications. We will keep the patient n.p.o. until the diabetes is corrected and consider starting the patient on a diabetic carbohydrate consistent diet. 2. History of alcohol abuse on a daily basis. We will also initiate the patient on WAM protocol. 3. History of chronic back pain. Restart her pain medications. 4. History of depression. Continue her duloxetine. 5. History of diabetic neuropathy. Continue gabapentin. 6. DVT prophylaxis with sequential compression device. 7. Code status. Full code. [id number]/CPS #: [id number] MTDD
[2019-05-03] MEDS ORDERED: tiZANidine TAB* 2 MG PO PRN (09:00)
[2019-05-03] MEDS: Folic Acid TAB* 1 MG PO SCH (09:36)
[2019-05-03] MEDS: Thiamine TAB* 100 MG TAB PO SCH (09:36)
[2019-05-03] MEDS: Multivitamins/Minerals TAB PO SCH (09:36)
[2019-05-03] MEDS: Gabapentin CAP(*) 400 MG PO SCH ×3 (09:36→21:45)
[2019-05-03] MEDS: DULoxetine DR CAP* 60 MG CAP.DR PO SCH (09:36)
[2019-05-03 09:51] LABS: BUN/Creatinine Ratio 36.8 (8-20); Calcium 7.8 mg/dL (8.6-10.3); EGFR African American 83.7 (>60); EGFR Non-African American 69.2 (>60); Potassium 4.4 mmol/L (3.5-5.0)
--- NOTE | 2019-05-03 11:49 | PN ---
Date of Service: 05/03/19 - HD 1 Critical Care Services: 48 yo F admitted overnight with DKA. Initially presented to the ED for nausea, vomiting, headache and back pain x 1 day. She reports this is similar to a previous episode of DKA. BG at home 120. On evaluation she was noted to be tachycardic to 124 and to have diastolic HTN ( 103). Physical exam with moderate distress and mild agitation. Lab work notable for WBC 12.3, Cr 1.05 and HCO3 11. BG 272. AG 31. Bolused 3 L IVF and admitted to ICU. 05/03: Anion gap beginning to correct. Insulin gtt arrived from pharmacy and started. Vital Signs: Temp Pulse Resp BP SpO2 FiO2 99.4 F 103 24 128/85 97 21 05/03/19 11:20 05/03/19 10:00 05/03/19 10:00 05/03/19 10:00 05/03/19 10:00 05/03 05:42 Physical Exam: Gen: resting comfortably HEENT: moist mucus membranes Lungs: CTAB Cardiac: tachycardic but regular Abdomen: soft, NTND Extremities: warm, dry, no edema Neuro: lethargic but arousable Fluid Balance (Past 24 Hours): I= O= Net Intake & Output 05/01/19 05/02/19 05/03/19 05/04/19 06:59 06:59 06:59 06:59 Intake Total 3100 Output Total 200 Balance 3100 -200 Weight 140 lb Intake: IV Fluids 3000 Oral 100 Output: Urine 200 Labs: Laboratory Results - last 24 hr 05/03/19 05/03/19 05/03/19 01:05 02:19 02:19 WBC 12.3 H RBC 4.10 Hgb 13.0 Hct 42 MCV 103 H MCH 32 H MCHC 31 RDW 17 H Plt Count 235 MPV 9.0 Neut % (Auto) 84.5 Lymph % (Auto) 8.8 [place] % (Auto) 6.1 Eos % (Auto) 0.0 Baso % (Auto) 0.6 Absolute Neuts (auto) 10.4 H Absolute Lymphs (auto) 1.1 Absolute Monos (auto) 0.8 Absolute Eos (auto) 0.0 Absolute Basos (auto) 0.1 Absolute Nucleated RBC 0.0 Nucleated RBC % 0.1 INR (Anticoag Therapy) VBG pH VBG pCO2 VBG pO2 VBG HCO3 VBG O2 Saturation VBG Base Excess Sodium 135 Potassium 5.0 Chloride 93 L Carbon Dioxide 11 L* Anion Gap 31 H BUN 36 H Creatinine 1.05 H Est GFR ( Amer) 67.4 Est GFR (Non-Af Amer) 55.7 BUN/Creatinine Ratio 34.3 H Glucose 272 H POC Glucose (mg/dL) 243 H Serum Osmolality Lactic Acid Calcium 8.6 Total Bilirubin 0.70 AST 27 ALT 17 Alkaline Phosphatase 101 C-Reactive Protein < 1.00 Total Protein 8.0 Albumin 4.3 Globulin 3.7 Albumin/Globulin Ratio 1.2 Beta HCG, Quant 0.87 Urine Color Urine Appearance Urine pH Ur Specific [place] Urine Protein Urine Ketones Urine Blood Urine Nitrate Urine Bilirubin Urine Urobilinogen Ur Leukocyte Esterase Urine WBC (Auto) Urine RBC (Auto) Ur Squamous Epith Cells Urine Bacteria Urine Osmolality Urine Glucose Urine Opiates Screen Ur Barbiturates Screen Ur Phencyclidine Scrn Ur Amphetamines Screen U Benzodiazepines Scrn Urine Cocaine Screen U Cannabinoids Screen Serum Alcohol < 10 05/03/19 05/03/19 05/03/19 02:19 02:19 03:20 WBC RBC Hgb Hct MCV MCH MCHC RDW Plt Count MPV Neut % (Auto) Lymph % (Auto) [place] % (Auto) Eos % (Auto) Baso % (Auto) Absolute Neuts (auto) Absolute Lymphs (auto) Absolute Monos (auto) Absolute Eos (auto) Absolute Basos (auto) Absolute Nucleated RBC Nucleated RBC % INR (Anticoag Therapy) VBG pH 7.13 L VBG pCO2 30 L VBG pO2 < 38.0 VBG HCO3 9.9 L VBG O2 Saturation 61.4 L VBG Base Excess -17.9 L Sodium Potassium Chloride Carbon Dioxide Anion Gap BUN Creatinine Est GFR ( Amer) Est GFR (Non-Af Amer) BUN/Creatinine Ratio Glucose POC Glucose (mg/dL) Serum Osmolality Lactic Acid 3.7 H* Calcium Total Bilirubin AST ALT Alkaline Phosphatase C-Reactive Protein Total Protein Albumin Globulin Albumin/Globulin Ratio Beta HCG, Quant Urine Color Urine Appearance Urine pH Ur Specific [place] Urine Protein Urine Ketones Urine Blood Urine Nitrate Urine Bilirubin Urine Urobilinogen Ur Leukocyte Esterase Urine WBC (Auto) Urine RBC (Auto) Ur Squamous Epith Cells Urine Bacteria Urine Osmolality Urine Glucose Urine Opiates Screen None detected Ur Barbiturates Screen None detected Ur Phencyclidine Scrn None detected Ur Amphetamines Screen None detected U Benzodiazepines Scrn None detected Urine Cocaine Screen None detected U Cannabinoids Screen None detected Serum Alcohol 05/03/19 05/03/19 05/03/19 03:20 04:12 04:15 WBC RBC Hgb Hct MCV MCH MCHC RDW Plt Count MPV Neut % (Auto) Lymph % (Auto) [place] % (Auto) Eos % (Auto) Baso % (Auto) Absolute Neuts (auto) Absolute Lymphs (auto) Absolute Monos (auto) Absolute Eos (auto) Absolute Basos (auto) Absolute Nucleated RBC Nucleated RBC % INR (Anticoag Therapy) VBG pH VBG pCO2 VBG pO2 VBG HCO3 VBG O2 Saturation VBG Base Excess Sodium Potassium Chloride Carbon Dioxide Anion Gap BUN Creatinine Est GFR ( Amer) Est GFR (Non-Af Amer) BUN/Creatinine Ratio Glucose POC Glucose (mg/dL) 264 H Serum Osmolality Lactic Acid Calcium Total Bilirubin AST ALT Alkaline Phosphatase C-Reactive Protein Total Protein Albumin Globulin Albumin/Globulin Ratio Beta HCG, Quant Urine Color Yellow Urine Appearance Clear Urine pH 6.0 Ur Specific [place] 1.014 Urine Protein 2+(100 mg/dl) A Urine Ketones 2+ A Urine Blood 1+ A Urine Nitrate Negative Urine Bilirubin Negative Urine Urobilinogen Negative Ur Leukocyte Esterase Negative Urine WBC (Auto) Absent Urine RBC (Auto) 1+(3-5/hpf) A Ur Squamous Epith Cells Present A Urine Bacteria Absent Urine Osmolality 490 Urine Glucose 2+(150 mg/dl) A Urine Opiates Screen Ur Barbiturates Screen Ur Phencyclidine Scrn Ur Amphetamines Screen U Benzodiazepines Scrn Urine Cocaine Screen U Cannabinoids Screen Serum Alcohol 05/03/19 05/03/19 05/03/19 04:20 04:20 04:20 WBC RBC Hgb Hct MCV MCH MCHC RDW Plt Count MPV Neut % (Auto) Lymph % (Auto) [place] % (Auto) Eos % (Auto) Baso % (Auto) Absolute Neuts (auto) Absolute Lymphs (auto) Absolute Monos (auto) Absolute Eos (auto) Absolute Basos (auto) Absolute Nucleated RBC Nucleated RBC % INR (Anticoag Therapy) 1.05 VBG pH VBG pCO2 VBG pO2 VBG HCO3 VBG O2 Saturation VBG Base Excess Sodium Potassium Chloride Carbon Dioxide Anion Gap BUN Creatinine Est GFR ( Amer) Est GFR (Non-Af Amer) BUN/Creatinine Ratio Glucose POC Glucose (mg/dL) Serum Osmolality 319 H Lactic Acid 1.4 Calcium Total Bilirubin AST ALT Alkaline Phosphatase C-Reactive Protein Total Protein Albumin Globulin Albumin/Globulin Ratio Beta HCG, Quant Urine Color Urine Appearance Urine pH Ur Specific [place] Urine Protein Urine Ketones Urine Blood Urine Nitrate Urine Bilirubin Urine Urobilinogen Ur Leukocyte Esterase Urine WBC (Auto) Urine RBC (Auto) Ur Squamous Epith Cells Urine Bacteria Urine Osmolality Urine Glucose Urine Opiates Screen Ur Barbiturates Screen Ur Phencyclidine Scrn Ur Amphetamines Screen U Benzodiazepines Scrn Urine Cocaine Screen U Cannabinoids Screen Serum Alcohol 05/03/19 05/03/19 05/03/19 06:22 08:05 09:20 WBC RBC Hgb Hct MCV MCH MCHC RDW Plt Count MPV Neut % (Auto) Lymph % (Auto) [place] % (Auto) Eos % (Auto) Baso % (Auto) Absolute Neuts (auto) Absolute Lymphs (auto) Absolute Monos (auto) Absolute Eos (auto) Absolute Basos (auto) Absolute Nucleated RBC Nucleated RBC % INR (Anticoag Therapy) VBG pH VBG pCO2 VBG pO2 VBG HCO3 VBG O2 Saturation VBG Base Excess Sodium 137 136 Potassium 4.7 4.4 Chloride 101 104 Carbon Dioxide 14 L* 16 L Anion Gap 22 H 16 H BUN 33 H 32 H Creatinine 0.94 0.87 Est GFR ( Amer) 76.6 83.7 Est GFR (Non-Af Amer) 63.3 69.2 BUN/Creatinine Ratio 35.1 H 36.8 H Glucose 205 H 164 H POC Glucose (mg/dL) 200 H Serum Osmolality Lactic Acid Calcium 8.1 L 7.8 L Total Bilirubin AST ALT Alkaline Phosphatase C-Reactive Protein Total Protein Albumin Globulin Albumin/Globulin Ratio Beta HCG, Quant Urine Color Urine Appearance Urine pH Ur Specific [place] Urine Protein Urine Ketones Urine Blood Urine Nitrate Urine Bilirubin Urine Urobilinogen Ur Leukocyte Esterase Urine WBC (Auto) Urine RBC (Auto) Ur Squamous Epith Cells Urine Bacteria Urine Osmolality Urine Glucose Urine Opiates Screen Ur Barbiturates Screen Ur Phencyclidine Scrn Ur Amphetamines Screen U Benzodiazepines Scrn Urine Cocaine Screen U Cannabinoids Screen Serum Alcohol 05/03/19 05/03/19 05/03/19 09:20 10:23 11:14 WBC RBC Hgb Hct MCV MCH MCHC RDW Plt Count MPV Neut % (Auto) Lymph % (Auto) [place] % (Auto) Eos % (Auto) Baso % (Auto) Absolute Neuts (auto) Absolute Lymphs (auto) Absolute Monos (auto) Absolute Eos (auto) Absolute Basos (auto) Absolute Nucleated RBC Nucleated RBC % INR (Anticoag Therapy) VBG pH VBG pCO2 VBG pO2 VBG HCO3 VBG O2 Saturation VBG Base Excess Sodium Potassium Chloride Carbon Dioxide Anion Gap BUN Creatinine Est GFR ( Amer) Est GFR (Non-Af Amer) BUN/Creatinine Ratio Glucose POC Glucose (mg/dL) 161 H 141 H 84 Serum Osmolality Lactic Acid Calcium Total Bilirubin AST ALT Alkaline Phosphatase C-Reactive Protein Total Protein Albumin Globulin Albumin/Globulin Ratio Beta HCG, Quant Urine Color Urine Appearance Urine pH Ur Specific [place] Urine Protein Urine Ketones Urine Blood Urine Nitrate Urine Bilirubin Urine Urobilinogen Ur Leukocyte Esterase Urine WBC (Auto) Urine RBC (Auto) Ur Squamous Epith Cells Urine Bacteria Urine Osmolality Urine Glucose Urine Opiates Screen Ur Barbiturates Screen Ur Phencyclidine Scrn Ur Amphetamines Screen U Benzodiazepines Scrn Urine Cocaine Screen U Cannabinoids Screen Serum Alcohol Studies: None Nutrition: start carb control diet as nausea now resolved Impression: 48 yo F admitted in real estate [place] 05/03 with DKA. Started on insulin gtt and beginning to correct. Plan: Hospital Diagnoses: #1: DKA #2: Type 2 diabetes mellitus #3: Essential HTN #4: Hypocalcemia Cardiovascular: (1) Sinus tachycardia secondary to DKA; (2) Essential HTN -- HR 99-128 -- SBP 123-153 -- Telemetry -- PRN Labetalol for goal SBP < 160 Home meds: None Pulmonary: (1) Nicotine use disorder -- RR 16-36 -- sats 98-100 on RA -- VBG: pH 7.13, pCO2 30, pO2<38, HCO3 9.9, BE -17.9 -- Nicoderm patch Home meds: None Gastrointestinal: (1) Nausea and vomiting secondary to DKA -- LFTs within normal limits -- diet: carb control -- bowel regimen: None -- ulcer prophylaxis: Not indicated at this time -- PRN Zofran Home meds: None Endocrine: (1) DKA; (2) Type 2 diabetes mellitus -- monitor BGs -- insulin gtt per DKA protocol Home meds: Ertugliflozin Renal: (1) Hypocalemia -- UOP: voiding -- Cr 0.87 from 0.94 -- Lytes Na 136 from 137 K 4.4 Ca 7.8, replace Mag ordered with next lab draw Phos ordered with next lab draw -- IVF: per DKA Protocol -- Calcium carbonate Home meds: None Infectious disease: (1) Leukocytosis -- Tmax 99.7 -- WBC 12.3, possibly hemocontraction, follow trend -- Micro 05/03 MRSA negative UA negative -- ABX None Home meds: None Neurologic: (1) Chronic back pain due to wedge compression in L3; (2) Alcohol use -- Urine tox and alcohol negative -- Buprenorphine -- Cymbalta -- Gabapentin -- Zanaflex -- Trazodone Home meds: Trazodone, Zanaflex, Buprenorphine, Cymbalta, Gabapentin Hematological:No acute issues -- Hgb 13.0 -- Plt 235 -- Coags INR 1.05 -- DVT prophylaxis: SQ Lovenox Home meds: None Metabolic: (1) Lactic acidosis, resolved -- Lactic acid 1.4 from 3.7 Home meds: None Other: No acute issues -- Folic acid & Thiamine -- MVI Home meds: None Deep vein thrombosis prophylaxis: SQ Lovenox Dietary: Not indicated at this time Condition: serious Prognosis: good Code status: full Disposition: to floor once anion gap corrected Family updated at bedside regarding interval events and plan of care Cumulative time spent in the care of this patient (excluding any procedure time) : at least 30 minutes. Patient care included clinical interview (with patient and/or family), bedside exam of the patient, review of labs, x-rays, and other ancillary data, coordination of (respiratory, nursing care, review of patient's records, discussion regarding patients management with involved consultants, primary physician, pharmacists, and other healthcare personnel (dietary, case management , physical/occupational therapy etc.) Critical Care Time: 30 min
[2019-05-03] MEDS: Nicotine PATCH 21 MG/24 HR* PATCH TRANSDERM SCH (11:55)
[2019-05-03] MEDS ORDERED: Labetalol IV* 5 MG/ML 20 ML VIAL IV PUSH PRN (12:04)
[2019-05-03] MEDS: Calcium Carbonate CHEW TAB* 500 MG (TUMS) PO SCH ×2 (13:07→21:45)
[2019-05-03 14:19] LABS: Alkaline Phosphatase 78 U/L (34-104); BUN/Creatinine Ratio 41.8 (8-20); Blood Urea Nitrogen 28 mg/dL (6-24); CO2 Carbon Dioxide 15 mmol/L (22-32); Calcium 7.3 mg/dL (8.6-10.3); Chloride 108 mmol/L (101-111); EGFR African American 113.2 (>60); EGFR Non-African American 93.6 (>60); Glucose 102 mg/dL (70-100); Magnesium 1.5 mg/dL (1.9-2.7); Sodium 137 mmol/L (135-145)
[2019-05-03] MEDS ORDERED: Lactated Ringers 1000 ML Bag* 1,000 ML IV SCH (15:00)
[2019-05-03 15:13] LABS: Anion Gap 14 mmol/L (2-11)
[2019-05-03 17:59] LABS: BUN/Creatinine Ratio 37.3 (8-20); Calcium 8.3 mg/dL (8.6-10.3); EGFR African American 99.4 (>60); EGFR Non-African American 82.1 (>60); Potassium 4.2 mmol/L (3.5-5.0)
[2019-05-03] MEDS: Insulin GLARGINE(*) 1 UNITS UNIT SUBCUT SCH (18:23)
[2019-05-03] MEDS: Insulin REGULAR(*) 1 UNITS UNIT SUBCUT SCH (18:23)
[2019-05-03] MEDS ORDERED: Nicotine Patch Removal NOTE PATCH OFF SCH (21:00)
[2019-05-03] MEDS ORDERED: traZODone TAB* 50 MG TAB PO PRN (21:00)
[2019-05-04] MEDS ORDERED: Dextrose 50% VIAL 50 ml IV PUSH PRN (00:08)
[2019-05-04] MEDS: Insulin REGULAR(*) 1 UNITS UNIT SUBCUT SCH (00:18)
[2019-05-04] MEDS: Insulin GLARGINE(*) 1 UNITS UNIT SUBCUT SCH (05:10)
[2019-05-04] MEDS: NS 0.9% 1000 ML** 1,000 ML IV SCH (05:13)
[2019-05-04] MEDS: Buprenorphine TAB* 8 MG SL PRN (05:13)
[2019-05-04 05:34] LABS: ABS Monocytes 0.3 10^3/ul (0-0.8); ABS Neutrophils 3.5 10^3/ul (1.5-7.7); Eosinophil % 0.5 %; Hematocrit 34 % (35-47); Hemoglobin 11.1 g/dL (12.0-16.0); Lymphocyte % 34.2 %; Mean Corpuscular HGB Conc 32 g/dL (31-36); Mean Corpuscular Hemoglobin 32 pg (27-31); Mean Corpuscular Volume 99 fL (80-97); Mean Platelet Volume 8.5 fL (7.4-10.4); Nucleated Red Blood Cells % 0.1; Platelet Count 151 10^3/uL (150-450); Red Blood Count 3.49 10^6 /uL (3.70-4.87); Red Cell Distribution Width 17 % (10-15); White Blood Count 5.9 10^3/uL (3.5-10.8)
[2019-05-04 05:51] LABS: Albumin 3.3 g/dL (3.2-5.2); Albumin/Globulin Ratio 1.3 (1-3); BUN/Creatinine Ratio 32.9 (8-20); Calcium 8.6 mg/dL (8.6-10.3); EGFR African American 107.6 (>60); EGFR Non-African American 88.9 (>60); Globulin 2.5 g/dL (2-4); Indirect Bilirubin 0.6 mg/dL (0.3-1.0); Magnesium 1.6 mg/dL (1.9-2.7); Potassium 4.1 mmol/L (3.5-5.0); Total Bilirubin 0.7 mg/dL (0.2-1.0); Total Protein 5.8 g/dL (6.4-8.9)
[2019-05-04] MEDS: Insulin LISPRO* 1 UNITS UNIT SUBCUT SCH ×2 (08:23→12:43)
[2019-05-04] MEDS: Nicotine PATCH 21 MG/24 HR* PATCH TRANSDERM SCH (08:29)
[2019-05-04] MEDS: Folic Acid TAB* 1 MG PO SCH (08:33)
[2019-05-04] MEDS: Calcium Carbonate CHEW TAB* 500 MG (TUMS) PO SCH (08:33)
[2019-05-04] MEDS: DULoxetine DR CAP* 60 MG CAP.DR PO SCH (08:33)
[2019-05-04] MEDS: Thiamine TAB* 100 MG TAB PO SCH (08:33)
[2019-05-04] MEDS: Gabapentin CAP(*) 400 MG PO SCH (08:33)
[2019-05-04] MEDS: Multivitamins/Minerals TAB PO SCH (08:34)
[2019-05-04] MEDS ORDERED: Enoxaparin(*) 40 MG/0.4 ML SYR SUBCUT SCH (09:00)
[2019-05-04] MEDS ORDERED: Magnesium Oxide TAB* 400 MG PO ONE (10:33)
[2019-05-04] MEDS ORDERED: Magnesium Sulfate 2 GM IV* 2 GM/50 ML BAG IVPB ONE (10:33)
[2019-05-04] MEDS ORDERED: Magnesium Sulfate IV* 3 GM in NS 0.9% 100 ML* 100 ML IVPB ONE (10:45)
[2019-05-04 12:46] VITALS: BP 107/81
--- NOTE | 2019-05-04 19:16 | DS ---
DISCHARGE SUMMARY: DATE OF ADMISSION: 05/03/19 DATE OF DISCHARGE: 05/04/19 PRIMARY CARE PROVIDER: Dr. Fatuma Bui.* (DICTATED BY YULIA XAVIER NP) ATTENDING PHYSICIAN: Dr. Hero Lou. PRIMARY DIAGNOSES: 1. Anion gap metabolic acidosis of unclear etiology. 2. Acute kidney injury. 3. Viral gastroenteritis. 4. Systemic inflammatory response syndrome. SECONDARY DIAGNOSES: 1. Diabetes mellitus type 2. 2. Chronic low back pain. 3. Diabetic neuropathy. 4. Dyslipidemia. 5. Depression. 6. Alcohol abuse. STUDIES WHILE IN THE HOSPITAL: None. HISTORY OF PRESENT ILLNESS AND HOSPITAL COURSE: Ms. Nowak is a 48-year-old female with past medical history of type 2 diabetes with 1 previous episode of DKA, chronic low back pain, diabetic neuropathy, depression and alcohol abuse, who presented to the emergency room on 05/03/19 with complaints of nausea and vomiting. Please see the history and physical by Dr. Machado for a complete summary of the events leading up to this hospitalization. In short, the patient reported vomiting and epigastric pain since the day prior to presentation. She reported a significant amount of emesis as well as resulting headache and out of concern presented to the emergency room. In the emergency room, she was noted to be tachycardic and tachypneic. She was also noted to have mild leukocytosis with a white blood count of 12.3. Chemistry panel revealed acute kidney injury, an anion gap of 31, carbon dioxide of 11, glucose of 272 and lactic acid of 3.7. Toxicology was unremarkable. Venous blood gas showed a pH of 7.13. At that time, it was suspected that the patient had a diabetic ketoacidosis and so she was admitted by the hospitalist service to the intensive care unit. The patient was started on an insulin drip and her oral antidiabetics were held. By yesterday evening, anion gap had corrected, acute kidney injury had resolved, and leukocytosis had resolved. The patient was then taken off the insulin drip and transferred up to the floor. The patient had uneventful night and reports feeling better today. She has not had any nausea, vomiting, or abdominal pain since being in the hospital, so it is suspected that this was a viral gastroenteritis, which at this point is resolved. Ultimately, the cause of the anion gap metabolic acidosis is unclear. The highest glucose during this admission was 272 which was on arrival to the emergency room. She was noted to have 2+ ketones in her urine and venous blood gas did show some acidosis. At this point, diabetic ketoacidosis remains on the differential, but seems lower on the differential as she was not significantly hyperglycemic. It is possible that this may actually be more signs sales representative of a starvation ketoacidosis as the patient had not been tolerating p.o. intake at home, though her vomiting had not been going on for any longer than 48 hours, so this also does seem somewhat unusual. Although lactic acid was elevated on admission, I do not think that her acidosis was secondary to lactic acidosis, rather it seems more likely that the elevated lactic was secondary to dehydration. Additionally, she was noted to have some acute kidney injury, but again I think this was likely secondary to dehydration and this was not signs sales representative of metabolic acidosis due to renal failure. There is also no evidence of any toxic ingestions which would cause acidosis. The patient is a daily alcohol user, though alcohol intake was at her baseline, so I also do not think that this was secondary to alcoholism. Regardless, labs as of today have essentially normalized, gap remains closed, creatinine remains at baseline. She was slightly hypomagnesemic this morning and magnesium was repleted. Leukocytosis has resolved and vital signs have normalized. On exam, the patient is alert and oriented x4. She has no focal neurological deficits. Her heart has a regular rate and rhythm without murmurs, rubs, or gallops. Her lungs are clear to auscultation without rhonchi, wheezes, or rubs. Abdomen is soft, nontender to palpation. There is no edema. Physical exam is otherwise benign. I will also note that the patient's A1c was noted to be 6.2% indicating excellent glucose control. Ms. Nowak is stable for discharge today. Most recent vital signs are as follows : Temp 98.2, heart rate 74, respiratory rate 11, oxygen saturation 92% on room air, blood pressure 107/81. DISCHARGE MEDICATIONS: New medications: 1. Folic acid 1 mg p.o. daily. 2. Multivitamin 1 tab p.o. daily. 3. Thiamine 100 mg p.o. daily. Continued medications: 1. Buprenorphine 8 mg sublingual q.8 hours p.r.n. pain. 2. Cyclobenzaprine 10 mg p.o. daily. 3. Duloxetine 60 mg p.o. daily. 4. Steglatro 5 mg p.o. daily. 5. Gabapentin 800 mg p.o. t.i.d. 6. Metformin 1000 mg p.o. b.i.d. 7. Tizanidine 4 mg p.o. t.i.d. 8. Trazodone 50 mg p.o. at bedtime. DISCHARGE PLAN: Ms. Nowak will be discharged home. Activity will be as tolerated. Diet will be diabetic. Medications are noted above. It is recommended that the patient take a multivitamin, folic acid, and thiamine due to her chronic alcohol use, but her medications otherwise remained unchanged. Again, she at this point has excellent glucose control and there is no need to adjust her diabetic medications. She will need to follow up with her primary care provider in the next 4 to 7 days. She should return to the emergency room or nearest hospital for any worsening of symptoms, shortness of breath, lightheadedness, dizziness, chest discomfort, high fevers, chills, night sweats , loss of consciousness, or any other worrisome signs or symptoms. DISCHARGE CONDITION: Stable. DISCHARGE DISPOSITION: Home. This is a summarized report of a complex medical history and hospital stay. For further details, please see the entire medical record. TIME SPENT: Approximately 50 minutes were spent on this discharge. YULIA XAVIER, CHACHO [id number]/CPS #: [id number] SREEDHAR
== END 2019-05-04 13:40 | disposition home or self-care (01) | DRG 422 ==
LOC: ED 00:38 → ICU 04:59 → MED 23:11
PROVIDERS: ADMIT Internal Medicine; ATTEND Internal Medicine
DX: E87.2 Acidosis (principal); M48.56XA Collapsed vertebra, not elsewhere classified, lumbar region, initial encounter for fracture; N17.9 Acute kidney failure, unspecified; R65.10 Systemic inflammatory response syndrome (SIRS) of non-infectious origin without acute organ dysfunction; I10 Essential (primary) hypertension; R00.0 Tachycardia, unspecified; E83.51 Hypocalcemia; D72.829 Elevated white blood cell count, unspecified; G89.29 Other chronic pain; F17.210 Nicotine dependence, cigarettes, uncomplicated; E78.5 Hyperlipidemia, unspecified; E11.40 Type 2 diabetes mellitus with diabetic neuropathy, unspecified; F32.9 Major depressive disorder, single episode, unspecified; A08.4 Viral intestinal infection, unspecified; F10.10 Alcohol abuse, uncomplicated; E86.0 Dehydration; E83.42 Hypomagnesemia; Z79.84 Long term (current) use of oral hypoglycemic drugs; Z79.899 Other long term (current) drug therapy
CPT/HCPCS: 36415; 80048; 80053; 80076; 80307; 80320; 81003; 81015; 82803; 83036; 83605; 83735; 83930; 83935; 84075; 84100; 84702; 85025; 85610; 86140; 87641; 96361; 96374; 96375; 99285; A9270-GY; G0480; J1650; J1815; J1885; J2405; J3411; J3475

== ENCOUNTER 2019-10-17 09:47 | Emergency (ER) | payer OTHER ==
[2019-10-17 09:52] VITALS: BP 116/91
[2019-10-17] MEDS ORDERED: Tetan/Diph/Pertus SYR(Tdap)* 0.5 ML SYR(BOOSTRIX) use SYR contains LATEX IM ONE (10:07)
[2019-10-17] MEDS ORDERED: Cephalexin CAP* 500 MG PO ONE (10:07)
--- NOTE | 2019-10-17 10:15 | ED ---
Laceration/Wound HPI - HPI Summary HPI Summary: The patient is a 49-year-old female presenting to [facility] [place] Emergency Department with a chief complaint of wound to the left knee onset two days ago. She reports that she sustained a mechanical fall two days ago onto both knees, subsequently resulting in a laceration to the left knee. She applied a dressing, but the wound continues to bleed and have discharge, so she is concerned for the need of sutures. Pain around the laceration is rated 10/10 in severity. She denies any pain in the knee joint. She is able to ambulate on the knee. Past medical history includes type 2 diabetes, back problems, right hip fracture with surgery , two C-sections. Current smoker. Admits to daily alcohol use. No substance use. Medications reviewed. Allergies noted. - History of Current Complaint Stated Complaint: FALL LEFT KNEE PAIN Hx Obtained From: Patient Mechanism of Injury: Other - fall Onset/Duration: Lasting Days, Still Present Aggravating: Movement Alleviating: Nothing Onset Severity: Moderate Current Severity: Moderate Pain Intensity: 10 Pain Scale Used: 0-10 Numeric Associated Signs & Symptoms: Discharge - Additional Pertinent History Primary Care Physician: MARGY - Allergy/Home Medications Allergies/Adverse Reactions: Allergies Allergy/AdvReac Type Severity Reaction Status Date / Time buprenorphine AdvReac Hallucinati Verified 05/03/19 14:56 ons Home Medications: Home Medications Metformin HCl 1,000 mg PO BID 08/18/17 [History Confirmed 10/17/19] DULoxetine DR CAP* [Cymbalta CAP*] 60 mg PO DAILY 12/14/18 [History Confirmed ] Ertugliflozin Pidolate [Steglatro] 5 mg PO DAILY 12/14/18 [History Confirmed ] Gabapentin 800 mg PO TID 12/14/18 [History Confirmed 10/17/19] tiZANidine TAB* [Zanaflex TAB*] 4 mg PO TID 12/14/18 [History Confirmed 10/17/19 ] traZODone TAB* [Desyrel TAB*] 25 - 50 mg PO BEDTIME 12/14/18 [History Confirmed 10/17/19] Atorvastatin* [Lipitor 10 MG*] 10 mg PO BEDTIME 10/17/19 [History Confirmed ] Benzonatate CAP* [Tessalon 100 MG CAP*] 100 - 200 mg PO Q8H PRN 10/17/19 [ History Confirmed 10/17/19] Cephalexin CAP* [Keflex CAP*] 500 mg PO QID #40 cap 10/17/19 [Rx] PMH/Surg Hx/FS Hx/Imm Hx Endocrine/Hematology History: Reports: Hx Diabetes - type 2 Denies: Hx Anticoagulant Therapy Cardiovascular History: Denies: Hx Hypercholesterolemia, Hx Hypertension, Hx Pacemaker/ICD Respiratory History: Denies: Hx Asthma History: Denies: Hx Renal Disease Musculoskeletal History: Reports: Hx Back Problems Sensory History: Denies: Hx Hearing Aid Neurological History: Reports: Other Neuro Impairments/Disorders - WEDGE COMPRESSION FX THIRD LUMBAR Psychiatric History: Denies: Hx Panic Disorder - Surgical History Surgical History: Yes Surgery Procedure, Year, and Place: Right hip fracture-Right Hip Surgery by Dr. Ivory at [facility] in [facility]. 2 C SECTIONS. BREAST AUGMENTATION - Immunization History Date of Tetanus Vaccine: unk Infectious Disease History: No Infectious Disease History: Denies: Traveled Outside the [place] in Last 30 Days - Family History Known Family History: Negative: Hypertension, Diabetes - Social History Alcohol Use: Daily Alcohol Amount: 1-5 daily Hx Substance Use: No Substance Use Type: Reports: None Hx Tobacco Use: Yes Smoking Status (MU): Heavy Every Day Tobacco Smoker Type: Cigarettes Amount Used/How Often: 1 PPD Have You Smoked in the Last Year: No Review of Systems Negative: Arthralgia - in the knees Positive: Other - laceration to the left knee with bleeding and discharge All Other Systems Reviewed And Are Negative: Yes Physical Exam - Summary Physical Exam Summary: VITAL SIGNS: Reviewed. GENERAL: Patient is a well-developed and nourished female who is lying comfortable in the stretcher. Patient is not in any acute respiratory distress. HEAD AND FACE: No signs of trauma. No ecchymosis, hematomas or skull depressions. No sinus tenderness. EYES: PERRL, EOMI x 2, No injected conjunctiva, no nystagmus. EARS: Hearing grossly intact. Ear canals and tympanic membranes are within normal limits. MOUTH: Oropharynx within normal limits. NECK: Supple, trachea is midline, no adenopathy, no JVD, no carotid bruit, no c- spine tenderness, neck with full ROM. CHEST: Symmetric, no tenderness at palpation. LUNGS: Clear to auscultation bilaterally. No wheezing or crackles. CVS: Tachycardic rate and rhythm, S1 and S2 present, no murmurs or gallops appreciated. ABDOMEN: Soft, non-tender. No signs of distention. No rebound, no guarding, and no masses palpated. Bowel sounds are normal. EXTREMITIES: Dressing removed to find approximately 2.5cm laceration to the left knee, Wound has clear discharge; FROM in all major joints, no edema, no cyanosis or clubbing. NEURO: Alert and oriented x 3. No acute neurological deficits. Speech is normal and follows commands. SKIN: Dry and warm. Triage Information Reviewed: Yes Vital Signs On Initial Exam: Initial Vitals Temp Pulse Resp BP Pulse Ox 96.8 F 127 18 116/91 96 10/17/19 09:49 10/17/19 09:49 10/17/19 09:49 10/17/19 09:49 10/17/19 09:49 Vital Signs Reviewed: Yes Procedures - Sedation Patient Received Moderate/Deep Sedation with Procedure: No - Laceration/Wound Repair 1 Location: lower extremity - left knee Description: Joint Proximity Length, Depth and Shape: 2.5cm Laceration/Wound Explored: clean - irrigated with normal saline Sterile Dressing Applied?: Yes Diagnostics - Vital Signs Vital Signs Temp Pulse Resp BP Pulse Ox 10/17/19 09:49 96.8 F 127 18 116/91 96 - Laboratory Lab Statement: Any lab studies that have been ordered have been reviewed, and results considered in the medical decision making process. Re-Evaluation - Re-Evaluation First Eval Re-Evaluation Time: 10:30 Comment: Patient stating pain in the left hip although she was able to ambulate with a steady gait and without pain coming into the ED Second Eval Re-Evaluation Time: 10:45 Comment: Patient declining x-ray. Patient recommended to stay as HR is 134 BPM. Patient declines and would like to leave AMA. Laceration Repair Course/Dx - Course Assessment/Plan: The patient is a 49-year-old female presenting to [facility] Emergency Department with a chief complaint of wound to the left knee onset two days ago. She reports that she sustained a mechanical fall two days ago onto both knees, subsequently resulting in a laceration to the left knee. She applied a dressing, but the wound continues to bleed and have discharge, so she is concerned for the need of sutures. Pain around the laceration is rated 10/10 in severity. She denies any pain in the knee joint. She is able to ambulate on the knee. Past medical history includes type 2 diabetes, back problems, right hip fracture with surgery, two C-sections. Current smoker. Admits to daily alcohol use. No substance use. Medications reviewed. Allergies noted. I opened the dressing on the patients wound. There is clear discharge from the 2.5cm laceration on the left knee. The wound was irrigated with normal saline. New bandages were applied. Sutures are not appropriate since the laceration occurred two days ago. Patient was given a tetanus vaccine. She is started on Keflex in the ED. Patient is complaining of left hip pain even though she was able to ambulate well into the ED, so we will order an x-ray. However, patient declines the x-ray. Patient's heart rate is 134 BPM and is advised to stay for further work up, but she declines. She has elected to leave AGAINST MEDICAL ADVICE. I discussed my physical exam and findings with Dr. Tarango who accepted the patient for admission. However the patient refused to stay for further workup. Patient has signed the AGAINST MEDICAL ADVICE form. I extensively discussed with the patient the benefits and risks of leaving AMA. I also discussed the alternatives to leaving AMA, however, the patient still insists to leave the hospital AMA. The patient is clinically sober, free from distracting injury, appears to have intact insight and judgment and reason and in my opinion has the capacity to make decisions. Patient has full capacity and is cognitively intact. The patient presents with knee laceration, hip pain, tachycardia. I have explained that I am concerned with those symptoms which may represent tachycardia, arrythmia, sepsis, and . The patient verbalizes understanding of my concerns. I have also explained the results of the labs even though they are primarily within normal limits. The primary nurse and the charge nurse also strongly recommended that the patient should not leave AMA. Patient understands the risks of leaving AMA, which includes but is not restricted to . Patient signed the AMA form. Patient was also advised to return to ED if she changes her mind or if the symptoms worsen or other symptoms appear. Patient understands and agrees. Again, I discussed all the findings and test results with the patient. Patient was instructed to return to the emergency room immediately if any of the symptoms return or worsen. Plan of care was discussed with the patient, and she understands and agrees. All questions were answered at patient satisfaction. There were no further complaints or concerns. Patient signed AMA, and she was discharged AMA. She will be prescribed Keflex PO for 10 days. She is advised to follow up with PCP in 2-3 days. Plan of care was discussed with the patient, and patient understands and agrees. All questions were answered at patient satisfaction. There were no further complaints or concerns. - Differential Dx Differental Diagnoses: Other - tachycardia, arrhythmia, sepsis - Clinical Impression Provider Diagnoses: Laceration, Infected wound - Critical Care Time Critical Care Statement: Critical care time is provided exclusive of any time spent performing procedures. Discharge ED - Sign-Out/Discharge Documenting (check all that apply): Patient Departure - Patient will leave AMA. - Discharge Plan Condition: Stable Disposition: AGAINST MEDICAL ADVICE Prescriptions: Cephalexin CAP* [Keflex CAP*] 500 mg PO QID #40 cap Patient Education Materials: Laceration (DC), Wound Infection (DC) Referrals: Fatuma Bui MD [Primary Care Provider] - 3 Days Additional Instructions: Please take Keflex as prescribed. Follow up with your primary care provider in 2 -3 days. Return to the emergency department for any new or worsening symptoms. - Billing Disposition and Condition Condition: STABLE Disposition: Against Medical Advice - Attestation Statements Document Initiated by Loni: Yes Documenting Scribe: Yulisa Perdue Provider For Whom Loni is Documenting (Include Credential): Senthil Montoya MD Scribe Attestation: Yulisa Acosta scribed for Senthil Montoya MD on 10/18/19 at 0744. Scribe Documentation Reviewed: Yes Provider Attestation: The documentation as recorded by the Yulisa mccracken accurately reflects the service I personally performed and the decisions made by , Senthil Montoya MD Status of Scribe Document: Viewed
== END 2019-10-17 10:45 | disposition left against medical advice (07) ==
LOC: ED 09:47
DX: S81.012A Laceration without foreign body, left knee, initial encounter (principal); W19.XXXA Unspecified fall, initial encounter; Y92.9 Unspecified place or not applicable; E11.9 Type 2 diabetes mellitus without complications; Z79.84 Long term (current) use of oral hypoglycemic drugs; F17.210 Nicotine dependence, cigarettes, uncomplicated
CPT/HCPCS: 12001; 90471; 90715; 99282; A9270-GY